=== PATIENT | female | born 1950 | race Caucasian/White ===

== ENCOUNTER 2023-08-11 07:46 | Observation (INO) | payer MEDICARE ==
[2023-08-11] MEDS ORDERED: SODIUM CHLORIDE 0.9% 1,000 ML IV STA (08:31)
[2023-08-11] MEDS ORDERED: MORPHINE SULFATE 4 MG/ML SYRINGE IV STA (08:31)
--- NOTE | 2023-08-11 08:57 | ED ---
General Adult HPI - General Chief complaint: Recheck/Abnormal Lab/Rx Stated complaint: Weakness Time Seen by Provider: 08/11/23 07:50 Source: patient Mode of arrival: ambulatory Limitations: no limitations - History of Present Illness Initial comments: 73-year-old female past history of uterine cancer currently on chemotherapy who presents to the emergency department reporting significant numbness, tingling and pain in her upper and lower extremities. States that she has had 5 of 6 chemotherapy treatments. Last treatment was on July 22. After the last treatment she has developed significant neuropathy. She has spoke with Dr. Hernandez about this he was given a start her on gabapentin however she was refusing she was worried about side effects. States that the pain has become so significant that she can't walk. Today she tried to use the restroom and couldn't get herself up off the toilet. She called her daughter to bring her in. She is supposed to have her last treatment for chemotherapy tomorrow. Does not feel as if she can undergo the treatment because of her pain. Denies any fevers. No chest pain or difficulty breathing. Denies any abdominal pain. No other alleviating, precipitating or modifying factors - Related Data Home Medications Medication Instructions Recorded Confirmed Acetaminophen Tab [Tylenol] 1,000 mg PO Q6H PRN 08/11/23 08/11/23 Apixaban [Eliquis] 5 mg PO BID 08/11/23 08/11/23 Cholecalciferol (Vitamin D3) 125 mcg PO DAILY 08/11/23 08/11/23 [Vitamin D3 (125 MCG = 5,000 IU)] Clopidogrel [Plavix] 75 mg PO HS 08/11/23 08/11/23 Cyclobenzaprine [Flexeril] 5 mg PO TID PRN 08/11/23 08/11/23 Docusate [Colace] 100 mg PO DAILY PRN 08/11/23 08/11/23 Furosemide [Lasix] 20 mg PO DAILY 08/11/23 08/11/23 Insulin Glargine,Hum.rec.anlog 50 - 64 units SQ HS 08/11/23 08/11/23 [Lantus Solostar Pen] Lidocaine 5% Patch [Lidoderm 5% 1 patch TRANSDERM DAILY PRN 08/11/23 08/11/23 Patch] Metoprolol Succinate (ER) [Toprol 100 mg PO BID 08/11/23 08/11/23 XL] Nitroglycerin Sl Tabs [Nitrostat] 0.4 mg SL Q5M PRN 08/11/23 08/11/23 Potassium Chloride ER [K-Dur 10] 10 meq PO BID 08/11/23 08/11/23 Prochlorperazine [Compazine] 10 mg PO Q6H PRN 08/11/23 08/11/23 amLODIPine [Norvasc] 10 mg PO HS 08/11/23 08/11/23 cloNIDine 0.2 MG/24HR PATCH 1 patch TRANSDERM SA 08/11/23 08/11/23 [Catapres-TTS] lisinopriL 40 mg PO BID 08/11/23 08/11/23 Previous Rx's Medication Instructions Recorded Gabapentin [Neurontin] 200 mg PO TID #9 cap 08/14/23 INSULIN ASPART (NovoLOG) [NovoLOG 0 unit SQ ACHS each 08/14/23 (formulary)] Insulin Detemir (Levemir) [Levemir] 45 unit SQ HS each 08/14/23 polyethylene glycoL 3350 [Miralax] 17 gm PO DAILY packet 08/14/23 Allergies Allergy/AdvReac Type Severity Reaction Status Date / Time diltiazem Allergy Rash/Hives Verified 08/11/23 12:49 hydrochlorothiazide Allergy Rash/Hives Verified 08/11/23 12:49 metformin Allergy Rash/Hives Verified 08/11/23 12:49 ondansetron [From Zofran] Allergy Rash/Hives Verified 08/11/23 12:49 Penicillins Allergy Rash/Hives Verified 08/11/23 12:49 Jearspc-[id number]-NdY Reductase Allergy Rash/Hives Verified 08/11/23 12:49 Inhibitor Review of Systems ROS Statement: Those systems with pertinent positive or pertinent negative responses have been documented in the HPI. ROS Other: All systems not noted in ROS Statement are negative. Past Medical History Past Medical History: Atrial Fibrillation, Coronary Artery Disease (CAD), Cancer, Diabetes Mellitus, Hypertension History of Any Multi-Drug Resistant Organisms: None Reported Past Surgical History: Heart Catheterization, Heart Catheterization With Stent Additional Past Surgical History / Comment(s): Aortic valve, Past Psychological History: No Psychological Hx Reported Smoking Status: Never smoker Past Alcohol Use History: None Reported Past Drug Use History: None Reported General Exam Limitations: no limitations General appearance: alert, in no apparent distress Head exam: Present: atraumatic, normocephalic, normal inspection Eye exam: Present: normal appearance, PERRL, EOMI. Absent: scleral icterus, conjunctival injection, periorbital swelling ENT exam: Present: normal exam, mucous membranes moist Neck exam: Present: normal inspection. Absent: tenderness, meningismus, lymphadenopathy Respiratory exam: Present: normal lung sounds bilaterally. Absent: respiratory distress, wheezes, rales, rhonchi, stridor Cardiovascular Exam: Present: regular rate, normal rhythm, normal heart sounds. Absent: systolic murmur, diastolic murmur, rubs, gallop, clicks GI/Abdominal exam: Present: soft, normal bowel sounds. Absent: distended, tenderness, guarding, rebound, rigid Extremities exam: Present: normal inspection, full ROM, normal capillary refill. Absent: tenderness, pedal edema, joint swelling, calf tenderness Back exam: Present: normal inspection Neurological exam: Present: alert, oriented X3, CN II-XII intact Psychiatric exam: Present: normal affect, normal mood Skin exam: Present: warm, dry, intact, normal color. Absent: rash Course Vital Signs 08/11/23 08/11/23 08/11/23 07:49 09:08 09:52 Temperature 98 F Pulse Rate 98 107 H 82 Respiratory 18 20 20 Rate Blood Pressure 188/72 140/71 O2 Sat by Pulse 97 97 97 Oximetry 08/11/23 08/11/23 08/11/23 12:55 14:49 15:00 Temperature 98.1 F Pulse Rate 89 89 89 Respiratory 16 20 18 Rate Blood Pressure 143/80 149/95 154/72 O2 Sat by Pulse 97 93 L 97 Oximetry 08/11/23 08/11/23 17:54 18:37 Temperature Pulse Rate 95 99 Respiratory 20 20 Rate Blood Pressure 152/66 147/71 O2 Sat by Pulse 98 98 Oximetry Medical Decision Making - Medical Decision Making Was pt. sent in by a medical professional or institution (, PA, MEAT SCRUBBER, urgent care, hospital, or [facility]...) When possible be specific @ -No Did you speak to anyone other than the patient for history (EMS, parent, family, police, friend...)? What history was obtained from this source @ -No Did you review nursing and triage notes (agree or disagree)? Why? @ -I reviewed and agree with nursing and triage notes Were old charts reviewed (outside hosp., previous admission, EMS record, old EKG, old radiological studies, urgent care reports/EKG's, [facility] records)? Report findings @ -No old charts were reviewed Differential Diagnosis (chest pain, altered mental status, abdominal pain women, abdominal pain men, vaginal bleeding, weakness, fever, dyspnea, syncope, headache, dizziness, GI bleed, back pain, seizure, CVA, palpatations, mental health, musculoskeletal)? @ -Differential Weakness: Hypoglycemia, shock, sepsis, hyponatremia, anemia, infection, [place], ETOH, adverse medicine reaction, overdose, stroke, this is not meant to be an all-inclusive list. EKG interpreted by me (3pts min.). @ -Yes and demonstrates A. fib with a rate of 111. QRS 105. QTC is 393. No acute ST segment elevations. ST depression V5-V6 X-rays interpreted by me (1pt min.). @ -None done CT interpreted by me (1pt min.). @ -None done U/S interpreted by me (1pt. min.). @ -None done What testing was considered but not performed or refused? (CT, X-rays, U/S, labs)? Why? @ -None What meds were considered but not given or refused? Why? @ -None Did you discuss the management of the patient with other professionals (professionals i.e. DrJackie, PA, MEAT SCRUBBER, lab, RT, psych nurse, social insurance adviser, volunteer services supervisor, teacher, disabilities services officer, cyanide case hardener)? Give summary @ -I spoke with Dr. Hernandez and Dr. Wyatt Was smoking cessation discussed for >3mins.? @ -No Was critical care preformed (if so, how long)? @ -No Were there social determinants of health that impacted care today? How? (Homelessness, low income, unemployed, alcoholism, drug addiction, transpor tation, low edu. Level, literacy, decrease access to med. care, [facility], rehab)? @ -No Was there de-escalation of care discussed even if they declined (Discuss DNR or withdrawal of care, Hospice)? DNR status @ -No What co-morbidities impacted this encounter? (DM, HTN, Smoking, COPD, CAD, Cancer, CVA, ARF, Chemo, Hep., AIDS, mental health diagnosis, sleep apnea, morbid obesity)? @ -Uterine cancer on chemotherapy Was patient admitted / discharged? Hospital course, mention meds given and route, prescriptions, significant lab abnormalities, going to OR and other pertinent info. @ -Upon arrival patient is placed in room 28. History and physical exam is performed. IV access was established. Patient was given morphine for pain control. Laboratory studies are conducted and reviewed. Patient is evaluated reports improvement in her pain. I did discuss the diagnosis, differential and treatment options. Recommended starting the patient and gabapentin and follow ing up outpatient. Patient refused stating that she did not want to leave the hospital. States that she feels as she needs to be admitted due to her weakness. A call and speak with Dr. Wyatt. I also spoke with Dr. Hernandez. Recommend starting the patient on gabapentin 200 mg 3 times daily. Patient will forego her treatment tomorrow for which she understood. Patient pending a bed and the floor in stable condition Undiagnosed new problem with uncertain prognosis? @ -No Drug Therapy requiring intensive monitoring for toxicity (Heparin, Nitro, Insulin, Cardizem)? @ -No Were any procedures done? @ -No Diagnosis/symptom? @ -Acute lower extremity weakness, acute lower extremity neuropathy, uterine cancer status post chemotherapy Acute, or Chronic, or Acute on Chronic? @ -Acute on chronic Uncomplicated (without systemic symptoms) or Complicated (systemic symptoms)? @ -Complicated Side effects of treatment? @ -No Exacerbation, Progression, or Severe Exacerbation? @ -No Poses a threat to life or bodily function? How? (Chest pain, [place], [place], pneumonia, PE, COPD, DKA, ARF, appy, cholecystitis, CVA, Diverticulitis, Homicidal, Suicidal, threat to staff... and all critical care pts) @ -No - Lab Data Result diagrams: 08/13/23 03:57 08/13/23 03:57 Lab Results 08/11/23 08/11/23 08/11/23 Range/Units 08:49 08:49 08:49 WBC 11.9 H (3.8-10.6) k/uL RBC 4.50 (3.80-5.40) m/uL Hgb 12.4 (11.4-16.0) gm/dL Hct 38.4 (34.0-46.0) % MCV 85.3 (80.0-100.0) fL MCH 27.6 (25.0-35.0) pg MCHC 32.4 (31.0-37.0) g/dL RDW 16.9 H (11.5-15.5) % Plt Count 299 (150-450) k/uL MPV 8.2 Neutrophils % 78 % Lymphocytes % 12 % Monocytes % 7 % Eosinophils % 0 % Basophils % 0 % Neutrophils # 9.3 H (1.3-7.7) k/uL Lymphocytes # 1.4 (1.0-4.8) k/uL Monocytes # 0.8 (0-1.0) k/uL Eosinophils # 0.0 (0-0.7) k/uL Basophils # 0.0 (0-0.2) k/uL Anisocytosis Slight PT 11.0 (10.0-12.5) sec INR 1.0 (<1.2) APTT 26.7 (22.0-30.0) sec Sodium 133 L (137-145) mmol/L Potassium 4.0 (3.5-5.1) mmol/L Chloride 97 L (98-107) mmol/L Carbon Dioxide 21 L (22-30) mmol/L Anion Gap 15 mmol/L BUN 22 H (7-17) mg/dL Creatinine 0.49 L (0.52-1.04) mg/dL Est GFR (CKD-EPI)AfAm >90 (>60 ml/min/1.73 sqM) Est GFR (CKD-EPI)NonAf >90 (>60 ml/min/1.73 sqM) Glucose 187 H (74-99) mg/dL Plasma Lactic Acid Allen (0.7-2.0) mmol/L Calcium 10.0 (8.4-10.2) mg/dL Phosphorus 4.6 H (2.5-4.5) mg/dL Magnesium 1.7 (1.6-2.3) mg/dL Total Bilirubin 0.6 (0.2-1.3) mg/dL AST 22 (14-36) U/L ALT 26 (4-34) U/L Alkaline Phosphatase 94 (38-126) U/L Creatine Kinase 38 (30-135) U/L Troponin I (0.000-0.034) ng/mL Total Protein 7.5 (6.3-8.2) g/dL Albumin 4.4 (3.5-5.0) g/dL 08/11/23 08/11/23 Range/Units 08:49 08:49 WBC (3.8-10.6) k/uL RBC (3.80-5.40) m/uL Hgb (11.4-16.0) gm/dL Hct (34.0-46.0) % MCV (80.0-100.0) fL MCH (25.0-35.0) pg MCHC (31.0-37.0) g/dL RDW (11.5-15.5) % Plt Count (150-450) k/uL MPV Neutrophils % % Lymphocytes % % Monocytes % % Eosinophils % % Basophils % % Neutrophils # (1.3-7.7) k/uL Lymphocytes # (1.0-4.8) k/uL Monocytes # (0-1.0) k/uL Eosinophils # (0-0.7) k/uL Basophils # (0-0.2) k/uL Anisocytosis PT (10.0-12.5) sec INR (<1.2) APTT (22.0-30.0) sec Sodium (137-145) mmol/L Potassium (3.5-5.1) mmol/L Chloride (98-107) mmol/L Carbon Dioxide (22-30) mmol/L Anion Gap mmol/L BUN (7-17) mg/dL Creatinine (0.52-1.04) mg/dL Est GFR (CKD-EPI)AfAm (>60 ml/min/1.73 sqM) Est GFR (CKD-EPI)NonAf (>60 ml/min/1.73 sqM) Glucose (74-99) mg/dL Plasma Lactic Acid Allen 1.8 (0.7-2.0) mmol/L Calcium (8.4-10.2) mg/dL Phosphorus (2.5-4.5) mg/dL Magnesium (1.6-2.3) mg/dL Total Bilirubin (0.2-1.3) mg/dL AST (14-36) U/L ALT (4-34) U/L Alkaline Phosphatase (38-126) U/L Creatine Kinase (30-135) U/L Troponin I 0.021 (0.000-0.034) ng/mL Total Protein (6.3-8.2) g/dL Albumin (3.5-5.0) g/dL Disposition Clinical Impression: Peripheral neuropathy Disposition: ADMITTED IP TO THIS [facility] Condition: Stable Is patient prescribed a controlled substance at d/c from ED?: No Time of Disposition: 12:08 Decision to Admit Reason: Admit from EC Decision Date: 08/11/23 Decision Time: 12:08
[2023-08-11 09:09] LABS: Anisocytosis Slight; Basophils % (A) 0 %; Eosinophils % (A) 0 %; HCT 38.4 % (34.0-46.0); HGB 12.4 gm/dL (11.4-16.0); Lymphocytes # (A) 1.4 k/uL (1.0-4.8); Lymphocytes % (A) 12 %; MCH 27.6 pg (25.0-35.0); MCHC 32.4 g/dL (31.0-37.0); MCV 85.3 fL (80.0-100.0); Mean Platelet Volume 8.2; Monocytes # (A) 0.8 k/uL (0-1.0); Monocytes % (A) 7 %; Neutrophils # (A) 9.3 k/uL (1.3-7.7); Neutrophils % (A) 78 %; Platelet Count 299 k/uL (150-450); RDW 16.9 % (11.5-15.5); WBC 11.9 k/uL (3.8-10.6)
[2023-08-11 09:20] LABS: ALT 26 U/L (4-34); AST 22 U/L (14-36); African American GFR (CKD) >90 (>60 ml/min/1.73 sqM); Albumin 4.4 g/dL (3.5-5.0); Alkaline Phosphatase 94 U/L (38-126); Anion Gap 15 mmol/L; Blood Urea Nitrogen 22 mg/dL (7-17); Carbon Dioxide 21 mmol/L (22-30); Chloride 97 mmol/L (98-107); Creatine Kinase 38 U/L (30-135); Glucose 187 mg/dL (74-99); Magnesium 1.7 mg/dL (1.6-2.3); Non-African American GFR(CKD) >90 (>60 ml/min/1.73 sqM); Phosphorus 4.6 mg/dL (2.5-4.5); Sodium 133 mmol/L (137-145); Total Bilirubin 0.6 mg/dL (0.2-1.3); Total Protein 7.5 g/dL (6.3-8.2)
[2023-08-11 09:31] LABS: Partial Thromboplastin Time 26.7 sec (22.0-30.0)
[2023-08-11] MEDS ORDERED: NALOXONE 0.4 MG/ML 1 ML VIAL IV PRN (12:08)
[2023-08-11] MEDS ORDERED: GABAPENTIN 100 MG CAP PO SCH ×2 (12:15→21:00)
[2023-08-11] MEDS ORDERED: DEXTROSE 50% SYRINGE 50 ML IVP PRN ×2 (12:33)
[2023-08-11 12:52] LABS: Glucose,Whole Blood 154 mg/dL (70-110)
[2023-08-11] MEDS: SODIUM CHLORIDE 0.9% 1,000 ML IV SCH ×2 (12:54→23:05)
[2023-08-11] MEDS ORDERED: NITROGLYCERIN SL TABS 0.4 MG TAB SUBLINGUAL PRN (13:06)
[2023-08-11] MEDS ORDERED: DOCUSATE 100 MG CAP PO PRN (13:06)
[2023-08-11] MEDS ORDERED: CYCLOBENZAPRINE 5 MG TAB PO PRN (13:06)
[2023-08-11] MEDS ORDERED: ACETAMINOPHEN TAB 500 MG TAB PO PRN (13:06)
[2023-08-11] MEDS ORDERED: PROCHLORPERAZINE 10 MG TAB PO PRN (13:09)
[2023-08-11] MEDS ORDERED: amLODIPine 10 MG TAB PO SCH (13:30)
[2023-08-11] MEDS: METOPROLOL SUCCINATE (ER) 100 MG TAB.ER.24H PO SCH ×2 (14:52→22:29)
[2023-08-11] MEDS: APIXABAN 5 MG TAB PO SCH ×2 (14:52→22:28)
[2023-08-11 18:32] LABS: Glucose,Whole Blood 161 mg/dL (70-110)
[2023-08-11] MEDS: INSULIN ASPART (NovoLOG) 100 UNIT/ML VIAL SQ SCH ×2 (18:36→22:30)
[2023-08-11 22:09] LABS: Glucose,Whole Blood 174 mg/dL (70-110)
[2023-08-11] MEDS: INSULIN DETEMIR (LEVEMIR) 100 UNIT/ML SYR SQ SCH (22:28)
[2023-08-11] MEDS: amLODIPine 10 MG TAB PO SCH (22:29)
[2023-08-11] MEDS: lisinopriL 20 MG TAB PO SCH (22:29)
[2023-08-11] MEDS: CLOPIDOGREL 75 MG TAB PO SCH (22:29)
[2023-08-11] MEDS: MORPHINE SULFATE 4 MG/ML SYRINGE IV PRN (22:30)
[2023-08-11] MEDS ORDERED: ZINC OXIDE PASTE (Z-GUARD) 1 APPLIC APPLIC TOPICAL PRN (22:59)
[2023-08-12 08:01] LABS: Glucose,Whole Blood 114 mg/dL (70-110)
[2023-08-12] MEDS: INSULIN ASPART (NovoLOG) 100 UNIT/ML VIAL SQ SCH ×4 (08:12→21:05)
[2023-08-12] MEDS: MORPHINE SULFATE 4 MG/ML SYRINGE IV PRN (08:26)
[2023-08-12] MEDS: APIXABAN 5 MG TAB PO SCH ×2 (08:30→21:10)
[2023-08-12] MEDS: METOPROLOL SUCCINATE (ER) 100 MG TAB.ER.24H PO SCH ×2 (08:31→21:10)
[2023-08-12] MEDS: CHOLECALCIFEROL 125 MCG (5000 IU) TABLET PO SCH (08:31)
[2023-08-12] MEDS: lisinopriL 20 MG TAB PO SCH ×2 (08:31→21:13)
[2023-08-12 10:51] LABS: Basophils # (A) 0.06 X 10*3/uL (0.00-0.10); Basophils % (A) 0.6 %; Eosinophils # (A) 0.05 X 10*3/uL (0.04-0.35); Eosinophils % (A) 0.5 %; HCT 35.3 % (37.2-46.3); HGB 11.1 d/dL (12.0-15.0); Lymphocytes # (A) 1.66 X 10*3/uL (0.90-5.00); Lymphocytes % (A) 17.1 %; MCHC 31.4 d/dL (32.0-37.0); MCV 85.9 FL (80.0-97.0); Mean Platelet Volume 9.5 FL (9.5-12.2); Monocytes # (A) 1.23 X 10*3/uL (0.20-1.00); Monocytes % (A) 12.7 %; NRBC Per 100 WBC 0 X 10*3/uL (0.00-0.01); Neutrophils # (A) 6.69 X 10*3/uL (1.80-7.70); Neutrophils % (A) 68.9 %; Platelet Count 264 X 10*3/uL (140-440); RBC 4.11 X 10*6/uL (4.10-5.20); RDW 17.4 % (11.5-14.5); WBC 9.71 X 10*3/uL (4.50-10.00)
[2023-08-12 11:17] LABS: BUN/Creat Ratio 27.17 Ratio (12.00-20.00); Blood Urea Nitrogen 16.3 mg/dL (9.0-27.0); Calcium 9.2 mg/dL (8.7-10.3); Carbon Dioxide 22.8 mmol/L (21.6-31.8); Chloride 102 mmol/L (96-109); Glucose 113 mg/dL (70-110); Potassium 4.1 mmol/L (3.5-5.5); Sodium 136 mmol/L (135-145)
[2023-08-12] MEDS: GABAPENTIN 100 MG CAP PO SCH ×3 (12:58→21:11)
[2023-08-12 13:01] LABS: Glucose,Whole Blood 153 mg/dL (70-110)
--- NOTE | 2023-08-12 14:19 | P.CONS ---
History of Present Illness - Reason for Consult Consult date: 08/12/23 neuropathy, uterine cancer Requesting physician: Katheryn Bolanos - Chief Complaint nueropathy - History of Present Illness Patient is a 73-year-old female with a significant history of uterine cancer. She is a patient of Dr. Hernandez. S/P [facility] and [facility] in the fall [address] Raffaele Goins, had adjuvant EBRT completing surveillance with radiation oncology at [facility], scan 04/02 showing no evidence recurrence. She was seen on consult in December 2022 at [facility] because of nausea, dry heaves, constipation and blood from her rectum. CT abdomen and pelvis at that time showed a 6.3 x 6.3 x 8 cm lobulated mass in the small bowel mesentery. She had CT guided biopsy on 12/23/22, pathology was positive for atypical cells consistent with endometrial primary, ER/MD positive, staging PET scan on 01/02/23 showed uptake in the lobular mass in the anterior Left hemipelvis and increased uptake in the anterior left iliac lymph nodes. Patient was referred to building supplies salesperson retail oncology and saw Dr. Richards. After evaluation of her biomarker results, it was recommended by [employer]CT[employer]NAGER oncology that the patient be treated with carboplatin, Taxol and PD1 immunotherapy. She was started on carboplatin, Taxol and keytruda on 04/27/23 and is s/p 5 cycles on 07/22/23. She has been experiencing progressive Neuropathy in bilateral upper and lower extremities over the last couple months. Patient was recommended to start Neurontin but patient never started medication after she read potential side effects. Plan is to hold Taxol for cycle 6. Repeat CT scans will be scheduled after cycle 6 to assess treatment response. Patient presented to the emergency room with complaints of bilateral upper and lower extremity neuropathy and difficulty ambulating. Labs reviewed and are stable. Pt has been started on Neurontin. At today's visit patient is complaining of intermittent dizziness and persisting numbness and tingling in bilateral upper and lower extremities. She is able to ambulate short distances with a walker but needs assistance. Also reports decreased sensation in the lower extremities upon palpation. Denies any loss of bowel or bladder control. PT and OT have been ordered Review of Systems 10 point ROS is negative except as stated in the HPI Past Medical History Past Medical History: Atrial Fibrillation, Coronary Artery Disease (CAD), Cancer, Diabetes Mellitus, Hypertension Additional Past Medical History / Comment(s): Shirley diagnosis History of Any Multi-Drug Resistant Organisms: None Reported Past Surgical History: Section, Cholecystectomy, Heart Catheterization, Heart Catheterization With Stent, Hysterectomy Additional Past Surgical History / Comment(s): Aortic valve, Past Anesthesia/Blood Transfusion Reactions: No Reported Reaction Date of Last Stent Placement:: 2014 Past Psychological History: No Psychological Hx Reported Smoking Status: Never smoker Past Alcohol Use History: None Reported Past Drug Use History: None Reported Medications and Allergies Home Medications Medication Instructions Recorded Confirmed Type Acetaminophen Tab [Tylenol Tab] 1,000 mg PO Q6H PRN 08/11/23 08/11/23 History Apixaban [Eliquis] 5 mg PO BID 08/11/23 08/11/23 History Cholecalciferol (Vitamin D3) 125 mcg PO DAILY 08/11/23 08/11/23 History [Vitamin D3 (125 MCG = 5,000 IU)] Clopidogrel [Plavix] 75 mg PO HS 08/11/23 08/11/23 History Cyclobenzaprine [Flexeril] 5 mg PO TID PRN 08/11/23 08/11/23 History Docusate [Colace] 100 mg PO DAILY PRN 08/11/23 08/11/23 History Furosemide [Lasix] 20 mg PO DAILY 08/11/23 08/11/23 History Gabapentin 300 mg PO DIRECTED 08/11/23 08/11/23 History Insulin Glargine,Hum.rec.anlog 50 - 64 units SQ HS 08/11/23 08/11/23 History [Lantus Solostar Pen] Insulin Lispro [humaLOG Kwikpen] See Protocol SQ AC-TID 08/11/23 08/11/23 History Lidocaine 5% Patch [Lidoderm] 1 patch TRANSDERM DAILY PRN 08/11/23 08/11/23 History Metoprolol Succinate (ER) [Toprol 100 mg PO BID 08/11/23 08/11/23 History Xl] Nitroglycerin Sl Tabs [Nitrostat] 0.4 mg SL Q5M PRN 08/11/23 08/11/23 History OLANZapine [ZyPREXA] 2.5 mg PO DIRECTED 08/11/23 08/11/23 History Potassium Chloride ER [K-Dur 10] 10 meq PO BID 08/11/23 08/11/23 History Prochlorperazine [Compazine] 10 mg PO Q6H PRN 08/11/23 08/11/23 History amLODIPine [Norvasc] 10 mg PO HS 08/11/23 08/11/23 History cloNIDine 0.2 MG/24HR PATCH 1 patch TRANSDERM SA 08/11/23 08/11/23 History [Catapres-TTS] lisinopriL 40 mg PO BID 08/11/23 08/11/23 History Allergies Allergy/AdvReac Type Severity Reaction Status Date / Time diltiazem Allergy Rash/Hives Verified 08/11/23 12:49 hydrochlorothiazide Allergy Rash/Hives Verified 08/11/23 12:49 metformin Allergy Rash/Hives Verified 08/11/23 12:49 ondansetron [From Zofran] Allergy Rash/Hives Verified 08/11/23 12:49 Penicillins Allergy Rash/Hives Verified 08/11/23 12:49 Dritywe-ZUD-ZrX Reductase Allergy Rash/Hives Verified 08/11/23 12:49 Inhibitor Physical Exam Vitals: Vital Signs Temp Pulse Pulse Resp BP BP BP 08/12/23 08:04 98.0 F 77 16 123/72 08/12/23 02:49 98.2 F 92 18 143/62 08/11/23 20:11 98.0 F 100 16 128/74 08/11/23 18:37 99 20 147/71 08/11/23 17:54 95 20 152/66 08/11/23 15:00 98.1 F 89 18 154/72 08/11/23 14:49 89 20 149/95 08/11/23 12:55 89 16 143/80 08/11/23 09:52 82 20 Pulse Ox 08/12/23 08:04 97 08/12/23 02:49 94 L 08/11/23 20:11 98 08/11/23 18:37 98 08/11/23 17:54 98 08/11/23 15:00 97 08/11/23 14:49 93 L 08/11/23 12:55 97 08/11/23 09:52 97 Intake and Output 08/11/23 08/12/23 08/12/23 22:59 06:59 14:59 Intake Total 590 Balance 590 Intake: Oral 590 Other: Voiding Method Toilet Bedside Commode # Voids 2 Weight 78.925 kg - Constitutional General appearance: average body habitus, no acute distress - EENT Eyes: anicteric sclerae, EOMI ENT: hearing grossly normal - Respiratory breathing is even and unlabored - Cardiovascular skin warm and dry - Gastrointestinal General gastrointestinal: soft, no tenderness - Integumentary Integumentary: no cyanotic, no jaundiced - Neurologic Decreased sensation in bilateral lower extremities. With mild tenderness to palpation - Musculoskeletal Musculoskeletal: generalized weakness - Psychiatric Psychiatric: A&O x's 3, appropriate affect, intact judgment & insight Results CBC & Chem 7: 08/12/23 06:25 08/12/23 06:25 Labs: Abnormal Lab Results - Last 24 Hours (Table) 08/11/23 08/11/23 08/11/23 Range/Units 08:49 12:51 18:31 Sodium 133 L (137-145) mmol/L Chloride 97 L (98-107) mmol/L Carbon Dioxide 21 L (22-30) mmol/L BUN 22 H (7-17) mg/dL Creatinine 0.49 L (0.52-1.04) mg/dL Glucose 187 H (74-99) mg/dL POC Glucose (mg/dL) 154 H 161 H (70-110) mg/dL Phosphorus 4.6 H (2.5-4.5) mg/dL 08/11/23 08/12/23 Range/Units 22:08 08:00 Sodium (137-145) mmol/L Chloride (98-107) mmol/L Carbon Dioxide (22-30) mmol/L BUN (7-17) mg/dL Creatinine (0.52-1.04) mg/dL Glucose (74-99) mg/dL POC Glucose (mg/dL) 174 H 114 H (70-110) mg/dL Phosphorus (2.5-4.5) mg/dL Assessment and Plan (1) Peripheral neuropathy Current Visit: Yes Status: Acute Priority: High Code(s): G62.9 - POLY NEUROPATHY, UNSPECIFIED SNOMED Code(s): 223522683 (2) Endometrial adenocarcinoma Current Visit: Yes Status: Acute Priority: High Code(s): C54.1 - MALIGNANT NEOPLASM OF ENDOMETRIUM SNOMED Code(s): 136081058 Plan: Endometrial carcinoma: -Full history in HPI -Completed cycle 5 of carboplatin/Taxol/keytruda on 07/22/23 -She has been experiencing progressive Neuropathy in bilateral upper and lower extremities over the last couple months. Patient was recommended to start Neurontin but patient never started medication after she read potential side effects. -Plan is to hold Taxol for cycle 6 -Repeat CT scans will be scheduled after cycle 6 to assess treatment response. -Clinic f/u will be scheduled upon discharge Chemo-induced neuropathy: -Sx have been progressive -Patient was recommended to start Neurontin but patient never started medication after she read potential side effects. -As described above, plan is to hold Taxol for cycle 6. -Gabapentin 200mg TID started. Will continue to monitor sx -PT/OT consult placed attests: I have seen and examined patient, performed H&P, developed impression and plan of care. Discussed with dictator. Agree with documentation, dictated as a scribe.
--- NOTE | 2023-08-12 16:56 | P.HPIM ---
History of Present Illness H&P Date: 08/11/23 Chief Complaint: bilateral leg weakness HISTORY OF PRESENT ILLNESS: This is a 73-year-old female one of my patient with a previous medical history significant for coronary artery disease status post coronary artery bypass graft for 5 vessels along with aortic valve replacement with 21 mm bioprosthetic valve in 06/05/2015, hypertension and hypertensive cardio vascular disease, proximal is better for abrasion, diabetes mellitus type 2 diabetic neuropathy, hyperlipidemia, ulcerative colitis, TIA, obesity with obstructive sleep apnea and obesity hypoventilation syndrome, thalassemia, anxiety, patient was diagnosed with uterine cancer back in 2019 underwent total abdominal hysterectomy and bilateral sopping oophorectomy by Dr. Mosqueda followed by adjuvant radiation therapy, she finished relation therapy with her vision oncology at [facility] the [facility] and she had a CAT scan that showed no evidence of recurrence of disease back in March 2022, patient eventually developed to have a significant abdominal pain associated with rectal bleed was seen at [facility] was admitted to the hospital after she has had a computed tomography scan of the abdomen and pelvis that didn't show evidence of a large 6.36.3 times a day centimeter lobulated mass in the small bowel mesentery she was seen at that time by hematology oncology was re commended to go for a CT-guided biopsy which was done on 12/23/2022 this is came back positive for endometrial primary with ER and CO positive she underwent staging PET scan with Dr. Hernandez in December 2022 and that showed positive uptake in the mass and along with the left hemipelvis with increased uptake in the left iliac lymph nodes, patient was initially referred to Dr. Richards who recommended for the patient to go for chemotherapy as well as immunotherapy, she was started on carboplatin and Taxol and Keach Noemí on 04/27/2023 and she has finished 5 cycles on 07/22/2023, patient was supposed to get her sixth cycle tomorrow however she stated that she was having progressively weaker in both lower extremities with significant neuropathy due to her treatment, patient had declined taking gabapentin was offered to her by her oncologist due to possible side effects, and because she could not tolerate medication very well, patient she was going to the bathroom using her walker sat on the toilet for quite a bit and she could not get herself up, she ended up calling 911 and the patient was brought into the emergency department for evaluation, she was a bit hyponatremic, other than that no other abnormalities but the patient was extremely weak she could not be able to sit up and walk around because of significant weakness in both lower extremities therefore she was admitted to the hospital with physical therapy evaluation as well as hematology oncology evaluation. REVIEW OF SYSTEMS: Constitutional: No documented fever, no chills, no night sweats. No weight change. No weakness, fatigue or lethargy. No daytime sleepiness. EENT: No headache. No blurred vision or double vision, no loss of vision. No loss of Hearing, no ringing in the ears, no dizziness. No nasal drainage or congestion. No epistaxis. No sore throat. Lungs: No shortness of breath, no cough, no sputum production. No wheezing. Reports dyspnea with activity. Cardiovascular: No chest pain, no lower extremity edema. No palpitations. No paroxysmal nocturnal dyspnea. No orthopnea. No lightheadedness or dizziness. No syncopal episodes. Abdominal: Reports abdominal pain. No nausea, vomiting. No diarrhea. No constipation. No bloody or tarry stools reports loss of appetite. Genitourinary: No dysuria, increased frequency, urgency. No urinary retention. Musculoskeletal: No myalgias. No muscle weakness, no gait dysfunction, no frequent falls. No back pain. No neck pain. Integumentary: No wounds, no lesions. No rash or pruritus. No unusual bruising. No change in hair or nails. Neurologic: No aphasia. No facial droop. No change in mentation. No head injury. No headache. No paralysis. No paresthesia. Psychiatric: No depression. No anxiety. No mood swings. Endocrine: No abnormal blood sugars. No weight change. PAST MEDICAL HISTORY: Coronary artery disease status post coronary artery bypass graft 5 Aortic valve disease status post aortic valve replacement with 21 mm by prostatic valve 06/05/2015 Paroxysmal atrial fibrillation Diabetes mellitus type 2 with diabetic polyneuropathy Essential hypertension Mixed hyperlipidemia Ulcerative colitis Obstructive sleep apnea Parkinson disease Thalassemia Anxiety Malignant neoplasm of the uterus 2018 with recurrence in 2022 PAST SURGICAL HISTORY: Tonsillectomy and adenoidectomy Bilateral tubal ligation Total abdominal hysterectomy with bilateral salpingo-oophorectomy due to uterine cancer followed by external beam radiation therapy he be RT Cholecystectomy. Bilateral cataract surgery Left heart catheter physician with PCI with a science stent in the left circumflex artery 12/20/2015 Left heart catheterization with PCI in the diagonal branch 03/17/2016 CABG 5 with aortic valve replacement with a 21 mm 06/05/[address]-guided biopsy of the small bowel mesentery mass. SOCIAL HISTORY: Patient is a lifelong nonsmoker she denies any alcohol ingestion she denies any drug use or abuse, she uses a walker for ambulation. FAMILY HISTORY: Father at age 74 from heart disease had diabetes and Parkinson disease as well he also had history of hypertension and he from [place], mother at age of 82 from heart disease and cancer she did from thrombus in the small intestine sign, patient has one son and 2 daughters no major medical problems. PHYSICAL EXAMINATION: General: 73-year-old female laying down in bed in no apparent distress. HEENT: Head is atraumatic, normocephalic, pupils were equal round reactive to light and recommendation, extraocular muscle movement were intact, sclera nonicteric, conjunctivae were pale, mucous membranes of the mouth are somewhat dry. Neck: Supple, no JVP, normal carotid upstroke bilaterally, no lymphadenopathy. Chest: Decreased breath sounds at the bases, few rhonchi, no extremity wheezes, no chest wall tenderness, no intercostal retractions. Heart: First heart sound is normal, second heart sounds normal Abdomen: Soft, nontender, nondistended, positive bowel sounds. Extremities: There is no edema no calf tenderness DP +2 bilaterally. Neurologic examination: Patient is awake alert and oriented ?-3, cranial nerves II-12 appear grossly intact, muscle power were 5 out of 5 in upper extremities and 5 out of 5 in bilateral lower extremities, deep tendon reflexes normal bilaterally. ASSESSMENT AND PLAN: 1. Bilateral lower extremity weakness likely related to significant polyneuropathy due to combination of diabetes as well as chemotherapy with carboplatin. Recommended for the patient to be admitted to the hospital for safety issues and increased risk of falling since the patient is on anticoagulation due to her arrhythmia, physical therapy evaluation, occupational therapy evaluation for safety at home, continue to use the walker, start the patient on gabapentin 200 mg orally once every day with the plan to increase it to 3 times every day, we will monitor the patient very closely social services analyst consultation will be obtained as well. Patient and her daughter were updated with the plan of care. 2. Hypertension and hypertensive cardiovascular disease. Continue patient on metoprolol ER 100 mg orally twice every day, amlodipine 10 mg once every, as well as lisinopril 40 mg orally twice every day. and TTS-1 q week 3. Mixed hyperlipidemia. Patient was advised to be started on statin however she refused to the ALLERGY and side effects, she also did refuse PCSK-9 INH 4. Coronary artery disease status post coronary artery bypass graft as well as PCI. Continue patient on Plavix 75 mg orally once every day, metoprolol ER 100 mg orally twice every day, monitor the patient's symptoms very closely patient currently follows with cardiology in [facility]. 5. Diabetes mellitus type 2 into the patient on Lantus 50 units at bedtime along with the Humalog per sliding scale insulin. Monitor the patient blood glucose level before each meal and bedtime. 6. History of uterine cancer status post total abdominal hysterectomy and bilateral sopping go for nephrectomy in 2018 followed by EBRT . With recurrence of her disease in 2022 status post 5 cycles of carboplatin, Taxol, and Keytruda, patient 6 cycles will be placed on hold, she was seen in consultation by hematology oncology. 7. Recurrent TIA. Continue patient on clopidogrel 75 mg once every day. 8. Atrial fibrillation. Continue patient on metoprolol ER 100 mg orally twice every day, continue patient on Eliquis 5mg orally twice every day. 9. Constipation. Start the patient on MiraLAX 17 g in 8 ounces of water along with Colace 100 mg orally twice every day. 10. 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 Start the patient on gabapentin 200 mg orally at bedtime with the intention to increase to 3 times every day down the line. 11. DVT prophylaxis. Continue patient on Eliquis 5 mg orally twice every day. 12. Medical debility. Physical therapy evaluation. 13. bakery worker consultation for discharge planning. 14. Patient elected for full code. Past Medical History Past Medical History: Atrial Fibrillation, Coronary Artery Disease (CAD), Cancer, Diabetes Mellitus, Hypertension Additional Past Medical History / Comment(s): Shirley diagnosis History of Any Multi-Drug Resistant Organisms: None Reported Past Surgical History: Section, Cholecystectomy, Heart Catheterization, Heart Catheterization With Stent, Hysterectomy Additional Past Surgical History / Comment(s): Aortic valve, Past Anesthesia/Blood Transfusion Reactions: No Reported Reaction Date of Last Stent Placement:: 2014 Past Psychological History: No Psychological Hx Reported Smoking Status: Never smoker Past Alcohol Use History: None Reported Past Drug Use History: None Reported Medications and Allergies Home Medications Medication Instructions Recorded Confirmed Type Acetaminophen Tab [Tylenol Tab] 1,000 mg PO Q6H PRN 08/11/23 08/11/23 History Apixaban [Eliquis] 5 mg PO BID 08/11/23 08/11/23 History Cholecalciferol (Vitamin D3) 125 mcg PO DAILY 08/11/23 08/11/23 History [Vitamin D3 (125 MCG = 5,000 IU)] Clopidogrel [Plavix] 75 mg PO HS 08/11/23 08/11/23 History Cyclobenzaprine [Flexeril] 5 mg PO TID PRN 08/11/23 08/11/23 History Docusate [Colace] 100 mg PO DAILY PRN 08/11/23 08/11/23 History Furosemide [Lasix] 20 mg PO DAILY 08/11/23 08/11/23 History Gabapentin 300 mg PO DIRECTED 08/11/23 08/11/23 History Insulin Glargine,Hum.rec.anlog 50 - 64 units SQ HS 08/11/23 08/11/23 History [Lantus Solostar Pen] Insulin Lispro [humaLOG Kwikpen] See Protocol SQ AC-TID 08/11/23 08/11/23 History Lidocaine 5% Patch [Lidoderm] 1 patch TRANSDERM DAILY PRN 08/11/23 08/11/23 History Metoprolol Succinate (ER) [Toprol 100 mg PO BID 08/11/23 08/11/23 History Xl] Nitroglycerin Sl Tabs [Nitrostat] 0.4 mg SL Q5M PRN 08/11/23 08/11/23 History OLANZapine [ZyPREXA] 2.5 mg PO DIRECTED 08/11/23 08/11/23 History Potassium Chloride ER [K-Dur 10] 10 meq PO BID 08/11/23 08/11/23 History Prochlorperazine [Compazine] 10 mg PO Q6H PRN 08/11/23 08/11/23 History amLODIPine [Norvasc] 10 mg PO HS 08/11/23 08/11/23 History cloNIDine 0.2 MG/24HR PATCH 1 patch TRANSDERM SA 08/11/23 08/11/23 History [Catapres-TTS] lisinopriL 40 mg PO BID 08/11/23 08/11/23 History Allergies Allergy/AdvReac Type Severity Reaction Status Date / Time diltiazem Allergy Rash/Hives Verified 08/11/23 12:49 hydrochlorothiazide Allergy Rash/Hives Verified 08/11/23 12:49 metformin Allergy Rash/Hives Verified 08/11/23 12:49 ondansetron [From Zofran] Allergy Rash/Hives Verified 08/11/23 12:49 Penicillins Allergy Rash/Hives Verified 08/11/23 12:49 Nsrqzfl-IEW-YxM Reductase Allergy Rash/Hives Verified 08/11/23 12:49 Inhibitor Physical Exam Vitals: Vital Signs Temp Pulse Pulse Resp BP BP BP 08/12/23 13:22 97.6 F 71 16 124/69 08/12/23 08:04 98.0 F 77 16 123/72 08/12/23 02:49 98.2 F 92 18 143/62 08/11/23 20:11 98.0 F 100 16 128/74 08/11/23 18:37 99 20 147/71 08/11/23 17:54 95 20 152/66 Pulse Ox 08/12/23 13:22 99 08/12/23 08:04 97 08/12/23 02:49 94 L 08/11/23 20:11 98 08/11/23 18:37 98 08/11/23 17:54 98 Intake and Output 08/12/23 08/12/23 08/12/23 06:59 14:59 22:59 Intake Total 590 Balance 590 Intake: Oral 590 Other: # Voids 2 Results CBC & Chem 7: 08/12/23 06:25 08/12/23 06:25 Labs: Abnormal Lab Results - Last 24 Hours (Table) 08/11/23 08/11/23 08/12/23 Range/Units 18:31 22:08 06:25 Hgb (12.0-15.0) d/dL Hct (37.2-46.3) % MCHC (32.0-37.0) d/dL RDW (11.5-14.5) % Monocytes # (0.20-1.00) X 10*3/uL BUN/Creatinine Ratio (12.00-20.00) Ratio Glucose (70-110) mg/dL POC Glucose (mg/dL) 161 H 174 H (70-110) mg/dL Hemoglobin A1c 6.6 H (<=6.0) % 08/12/23 08/12/23 08/12/23 Range/Units 06:25 06:25 08:00 Hgb 11.1 L (12.0-15.0) d/dL Hct 35.3 L (37.2-46.3) % MCHC 31.4 L (32.0-37.0) d/dL RDW 17.4 H (11.5-14.5) % Monocytes # 1.23 H (0.20-1.00) X 10*3/uL BUN/Creatinine Ratio 27.17 H (12.00-20.00) Ratio Glucose 113 H (70-110) mg/dL POC Glucose (mg/dL) 114 H (70-110) mg/dL Hemoglobin A1c (<=6.0) % 08/12/23 Range/Units 13:00 Hgb (12.0-15.0) d/dL Hct (37.2-46.3) % MCHC (32.0-37.0) d/dL RDW (11.5-14.5) % Monocytes # (0.20-1.00) X 10*3/uL BUN/Creatinine Ratio (12.00-20.00) Ratio Glucose (70-110) mg/dL POC Glucose (mg/dL) 153 H (70-110) mg/dL Hemoglobin A1c (<=6.0) %
[2023-08-12 17:33] LABS: Glucose,Whole Blood 127 mg/dL (70-110)
[2023-08-12] MEDS: polyethylene glycoL 3350 17 GM POWD.PACK PO SCH (17:47)
[2023-08-12 20:35] LABS: Glucose,Whole Blood 145 mg/dL (70-110)
[2023-08-12] MEDS: CLOPIDOGREL 75 MG TAB PO SCH (21:10)
[2023-08-12] MEDS: amLODIPine 10 MG TAB PO SCH (21:10)
[2023-08-12] MEDS: DOCUSATE 100 MG CAP PO SCH (21:10)
[2023-08-12] MEDS: INSULIN DETEMIR (LEVEMIR) 100 UNIT/ML SYR SQ SCH (21:13)
[2023-08-13 07:15] LABS: Glucose,Whole Blood 73 mg/dL (70-110)
[2023-08-13] MEDS: INSULIN ASPART (NovoLOG) 100 UNIT/ML VIAL SQ SCH ×4 (07:26→21:22)
[2023-08-13] MEDS ORDERED: LIDOCAINE 5% PATCH TOPICAL PRN (08:44)
[2023-08-13 08:47] LABS: Basophils # (A) 0.05 X 10*3/uL (0.00-0.10); Basophils % (A) 0.6 %; Eosinophils # (A) 0.06 X 10*3/uL (0.04-0.35); Eosinophils % (A) 0.7 %; HCT 35.1 % (37.2-46.3); HGB 11.3 d/dL (12.0-15.0); Lymphocytes # (A) 1.36 X 10*3/uL (0.90-5.00); Lymphocytes % (A) 15.5 %; MCH 27.2 pg (27.0-32.0); MCHC 32.2 d/dL (32.0-37.0); MCV 84.6 FL (80.0-97.0); Mean Platelet Volume 9.7 FL (9.5-12.2); Monocytes # (A) 1.41 X 10*3/uL (0.20-1.00); Monocytes % (A) 16.1 %; NRBC Per 100 WBC 0 X 10*3/uL (0.00-0.01); Neutrophils # (A) 5.87 X 10*3/uL (1.80-7.70); Neutrophils % (A) 66.8 %; Platelet Count 273 X 10*3/uL (140-440); RBC 4.15 X 10*6/uL (4.10-5.20); RDW 17.4 % (11.5-14.5); WBC 8.78 X 10*3/uL (4.50-10.00)
[2023-08-13 09:27] LABS: ALT 20 U/L (8-44); AST 16 U/L (13-35); Albumin 3.8 d/dL (3.8-4.9); Albumin/Globulin Ratio 1.73 Ratio (1.60-3.17); Alkaline Phosphatase 79 U/L (41-126); BUN/Creat Ratio 27.67 Ratio (12.00-20.00); Blood Urea Nitrogen 16.6 mg/dL (9.0-27.0); Calcium 9.6 mg/dL (8.7-10.3); Carbon Dioxide 22.5 mmol/L (21.6-31.8); Chloride 100 mmol/L (96-109); Globulin 2.2 d/dL (1.6-3.3); Glucose 95 mg/dL (70-110); Potassium 4.2 mmol/L (3.5-5.5); Sodium 136 mmol/L (135-145); Total Bilirubin 0.3 mg/dL (0.3-1.2)
[2023-08-13] MEDS: GABAPENTIN 100 MG CAP PO SCH ×3 (09:39→21:21)
[2023-08-13] MEDS: METOPROLOL SUCCINATE (ER) 100 MG TAB.ER.24H PO SCH ×2 (09:39→21:21)
[2023-08-13] MEDS: FUROSEMIDE 20 MG TAB PO SCH (09:40)
[2023-08-13] MEDS: POTASSIUM CHLORIDE ER 10 MEQ TAB.ER.PRT PO SCH ×2 (09:40→21:21)
[2023-08-13] MEDS: CHOLECALCIFEROL 125 MCG (5000 IU) TABLET PO SCH (09:40)
[2023-08-13] MEDS: lisinopriL 20 MG TAB PO SCH ×2 (09:40→21:21)
[2023-08-13] MEDS: APIXABAN 5 MG TAB PO SCH ×2 (09:40→21:21)
[2023-08-13] MEDS: polyethylene glycoL 3350 17 GM POWD.PACK PO SCH (09:46)
[2023-08-13] MEDS: DOCUSATE 100 MG CAP PO SCH ×2 (09:46→21:21)
--- NOTE | 2023-08-13 11:27 | P.PN ---
Subjective Progress Note Date: 08/12/23 HISTORY OF PRESENT ILLNESS: This is a 73-year-old female one of my patient with a previous medical history significant for coronary artery disease status post coronary artery bypass graft for 5 vessels along with aortic valve replacement with 21 mm bioprosthetic valve in 06/05/2015, hypertension and hypertensive cardio vascular disease, proximal is better for abrasion, diabetes mellitus type 2 diabetic neuropathy, hyperlipidemia, ulcerative colitis, TIA, obesity with obstructive sleep apnea and obesity hypoventilation syndrome, thalassemia, anxiety, patient was diagnosed with uterine cancer back in 2019 underwent total abdominal hysterectomy and bilateral sopping oophorectomy by Dr. Mosqueda followed by adjuvant radiation therapy, she finished relation therapy with her vision oncology at [facility] the [place] [facility] and she had a CAT scan that showed no evidence of recurrence of disease back in March 2022, patient eventually developed to have a significant abdominal pain associated with rectal bleed was seen at [facility] was admitted to the hospital after she has had a computed tomography scan of the abdomen and pelvis that didn't show evidence of a large 6.36.3 times a day centimeter lobulated mass in the small bowel mesentery she was seen at that time by hematology oncology was recommended to go for a CT-guided biopsy which was done on 12/23/2022 this is came back positive for endometrial primary with ER and GA positive she underwent staging PET scan with Dr. Hernandez in December 2022 and that showed positive uptake in the mass and along with the left hemipelvis with increased uptake in the left iliac lymph nodes, patient was initially referred to Dr. Richards who recommended for the patient to go for chemotherapy as well as immunotherapy, she was started on carboplatin and Taxol and Keach Noemí on 04/27/2023 and she has finished 5 cycles on 07/22/2023, patient was supposed to get her sixth cycle tomorrow however she stated that she was having progressively weaker in both lower extremities with significant neuropathy due to her treatment, patient had declined taking gabapentin was offered to her by her oncologist due to possible side effects, and because she could not tolerate medication very well, patient she was going to the bathroom using her walker sat on the toilet for quite a bit and she could not get herself up, she ended up calling 911 and the patient was brought into the emergency department for evaluation, she was a bit hyponatre tomy, other than that no other abnormalities but the patient was extremely weak she could not be able to sit up and walk around because of significant weakness in both lower extremities therefore she was admitted to the hospital with physical therapy evaluation as well as hematology oncology evaluation. 08/12: Patient is seen today in follow-up on the [facility] floor. Patient has been afebrile, heart rate 77, blood pressure 123/72 and pulse ox 97% on room air. Repeat blood work reveals WBC 9.7, hemoglobin 11.1, platelet count 264. Electrolytes are normal. BUN 16 and creatinine 0.6. CBG 100163. Hemoglobin A1c 6.6. Patient has been seen by physical therapy and occupational therapy with recommendations for subacute rehab. Discontinue IV fluids. Consult is in place with Dr. Hernandez. Social work consult added. REVIEW OF SYSTEMS: Constitutional: No documented fever, no chills, no night sweats. No weight change. No weakness, fatigue or lethargy. No daytime sleepiness. EENT: No headache. No blurred vision or double vision, no loss of vision. No loss of Hearing, no ringing in the ears, no dizziness. No nasal drainage or congestion. No epistaxis. No sore throat. Lungs: No shortness of breath, no cough, no sputum production. No wheezing. Reports dyspnea with activity. Cardiovascular: No chest pain, no lower extremity edema. No palpitations. No paroxysmal nocturnal dyspnea. No orthopnea. No lightheadedness or dizziness. No syncopal episodes. Abdominal: Reports abdominal pain. No nausea, vomiting. No diarrhea. No constipation. No bloody or tarry stools reports loss of appetite. Genitourinary: No dysuria, increased frequency, urgency. No urinary retention. Musculoskeletal: No myalgias. No muscle weakness, no gait dysfunction, no frequent falls. No back pain. No neck pain. Integumentary: No wounds, no lesions. No rash or pruritus. No unusual bruising. No change in hair or nails. Neurologic: No aphasia. No facial droop. No change in mentation. No head injury. No headache. No paralysis. No paresthesia. Psychiatric: No depression. No anxiety. No mood swings. Endocrine: No abnormal blood sugars. No weight change. PHYSICAL EXAMINATION: General: 73-year-old female laying down in bed in no apparent distress. HEENT: Head is atraumatic, normocephalic, pupils were equal round reactive to light and recommendation, extraocular muscle movement were intact, sclera nonicteric, conjunctivae were pale, mucous membranes of the mouth are somewhat dry. Neck: Supple, no JVP, normal carotid upstroke bilaterally, no lymphadenopathy. Chest: Decreased breath sounds at the bases, few rhonchi, no extremity wheezes, no chest wall tenderness, no intercostal retractions. Heart: First heart sound is normal, second heart sounds normal Abdomen: Soft, nontender, nondistended, positive bowel sounds. Extremities: There is no edema no calf tenderness DP +2 bilaterally. Neurologic examination: Patient is awake alert and oriented ?-3, cranial nerves II-12 appear grossly intact, muscle power were 5 out of 5 in upper extremities and 5 out of 5 in bilateral lower extremities, deep tendon reflexes normal bilaterally. ASSESSMENT AND PLAN: 1. Bilateral lower extremity weakness likely related to significant polyneuropathy due to combination of diabetes as well as chemotherapy with carboplatin. Physical therapy evaluation, occupational therapy evaluation for safety at home, continue to use the walker, continue the patient on gabapentin 200 mg orally once every day with the plan to increase it to 3 times every day, we will monitor the patient very closely oncology social worker consultation will be obtained as well. Patient and her daughter were updated with the plan of care. 2. Hypertension and hypertensive cardiovascular disease. Continue patient on metoprolol ER 100 mg orally twice every day, amlodipine 10 mg once every, as well as lisinopril 40 mg orally twice every day. and TTS-1 q week 3. Mixed hyperlipidemia. Patient was advised to be started on statin however she refused to the ALLERGY and side effects, she also did refuse PCSK-9 INH 4. Coronary artery disease status post coronary artery bypass graft as well as PCI. Continue patient on Plavix 75 mg orally once every day, metoprolol ER 100 mg orally twice every day, monitor the patient's symptoms very closely patient currently follows with cardiology in [facility]. 5. Diabetes mellitus type 2 into the patient on Lantus 50 units at bedtime along with the Humalog per sliding scale insulin. Monitor the patient blood glucose level before each meal and bedtime. 6. History of uterine cancer status post total abdominal hysterectomy and bilateral sopping go for nephrectomy in 2018 followed by EBRT . With recurrence of her disease in 2022 status post 5 cycles of carboplatin, Taxol, and Keytruda, patient 6 cycles will be placed on hold, she was seen in consultation by hematology oncology. 7. Recurrent TIA. Continue patient on clopidogrel 75 mg once every day. 8. Atrial fibrillation. Continue patient on metoprolol ER 100 mg orally twice every day, continue patient on Eliquis 5mg orally twice every day. 9. Constipation. Start the patient on MiraLAX 17 g in 8 ounces of water along with Colace 100 mg orally twice every day. 10. 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 Start the patient on gabapentin 200 mg orally at bedtime with the intention to increase to 3 times every day down the line. 11. DVT prophylaxis. Continue patient on Eliquis 5 mg orally twice every day. 12. Medical debility. Physical therapy evaluation. 13. pass worker consultation for discharge planning. 14. Patient elected for full code. Impression and plan of care have been directed as dictated by the signing physician. Gabi Kauffman nurse practitioner acting as scribe for signing physician. Objective - Vital Signs Vital signs: Vital Signs Temp 98.0 F 08/12/23 08:04 Pulse 77 08/12/23 08:04 Resp 16 08/12/23 08:04 BP 123/72 08/12/23 08:04 Pulse Ox 97 08/12/23 08:04 FiO2 Intake & Output 08/11/23 08/12/23 08/12/23 18:59 06:59 18:59 Intake Total 590 Balance 590 Weight 78.925 kg 78.925 kg Intake: Oral 590 Other: Voiding Method Toilet Bedside Commode # Voids 2 - Labs CBC & Chem 7: 08/13/23 03:57 08/13/23 03:57 Labs: Abnormal Lab Results - Last 24 Hours (Table) 08/11/23 08/11/23 08/11/23 Range/Units 12:51 18:31 22:08 Hgb (12.0-15.0) d/dL Hct (37.2-46.3) % MCHC (32.0-37.0) d/dL RDW (11.5-14.5) % Monocytes # (0.20-1.00) X 10*3/uL BUN/Creatinine Ratio (12.00-20.00) Ratio Glucose (70-110) mg/dL POC Glucose (mg/dL) 154 H 161 H 174 H (70-110) mg/dL Hemoglobin A1c (<=6.0) % 08/12/23 08/12/23 08/12/23 Range/Units 06:25 06:25 06:25 Hgb 11.1 L (12.0-15.0) d/dL Hct 35.3 L (37.2-46.3) % MCHC 31.4 L (32.0-37.0) d/dL RDW 17.4 H (11.5-14.5) % Monocytes # 1.23 H (0.20-1.00) X 10*3/uL BUN/Creatinine Ratio 27.17 H (12.00-20.00) Ratio Glucose 113 H (70-110) mg/dL POC Glucose (mg/dL) (70-110) mg/dL Hemoglobin A1c 6.6 H (<=6.0) % 08/12/23 Range/Units 08:00 Hgb (12.0-15.0) d/dL Hct (37.2-46.3) % MCHC (32.0-37.0) d/dL RDW (11.5-14.5) % Monocytes # (0.20-1.00) X 10*3/uL BUN/Creatinine Ratio (12.00-20.00) Ratio Glucose (70-110) mg/dL POC Glucose (mg/dL) 114 H (70-110) mg/dL Hemoglobin A1c (<=6.0) %
--- NOTE | 2023-08-13 11:36 | P.PN ---
Subjective Progress Note Date: 08/13/23 HISTORY OF PRESENT ILLNESS: This is a 73-year-old female one of my patient with a previous medical history significant for coronary artery disease status post coronary artery bypass graft for 5 vessels along with aortic valve replacement with 21 mm bioprosthetic valve in 06/05/2015, hypertension and hypertensive cardio vascular disease, proximal is better for abrasion, diabetes mellitus type 2 diabetic neuropathy, hyperlipidemia, ulcerative colitis, TIA, obesity with obstructive sleep apnea and obesity hypoventilation syndrome, thalassemia, anxiety, patient was diagnosed with uterine cancer back in 2019 underwent total abdominal hysterectomy and bilateral sopping oophorectomy by Dr. Mosqueda followed by adjuvant radiation therapy, she finished relation therapy with her vision oncology at [facility] the [place] area and she had a CAT scan that showed no evidence of recurrence of disease back in March 2022, patient eventually developed to have a significant abdominal pain associated with rectal bleed was seen at [facility] was admitted to the hospital after she has had a computed tomography scan of the abdomen and pelvis that didn't show evidence of a large 6.36.3 times a day centimeter lobulated mass in the small bowel mesentery she was seen at that time by hematology oncology was recommended to go for a CT-guided biopsy which was done on 12/23/2022 this is came back positive for endometrial primary with ER and ND positive she underwent staging PET scan with Dr. Hernandez in December 2022 and that showed positive uptake in the mass and along with the left hemipelvis with increased uptake in the left iliac lymph nodes, patient was initially referred to Dr. Richards who recommended for the patient to go for chemotherapy as well as immunotherapy, she was started on carboplatin and Taxol and Keach Noemí on 04/27/2023 and she has finished 5 cycles on 07/22/2023, patient was supposed to get her sixth cycle tomorrow however she stated that she was having progressively weaker in both lower extremities with significant neuropathy due to her treatment, patient had declined taking gabapentin was offered to her by her oncologist due to possible side effects, and because she could not tolerate medication very well, patient she was going to the bathroom using her walker sat on the toilet for quite a bit and she could not get herself up, she ended up calling 911 and the patient was brought into the emergency department for evaluation, she was a bit hyponatre tomy, other than that no other abnormalities but the patient was extremely weak she could not be able to sit up and walk around because of significant weakness in both lower extremities therefore she was admitted to the hospital with physical therapy evaluation as well as hematology oncology evaluation. 08/12: Patient is seen today in follow-up on the [facility] floor. Patient has been afebrile, heart rate 77, blood pressure 123/72 and pulse ox 97% on room air. Repeat blood work reveals WBC 9.7, hemoglobin 11.1, platelet count 264. Electrolytes are normal. BUN 16 and creatinine 0.6. CBG 134117. Hemoglobin A1c 6.6. Patient has been seen by physical therapy and occupational therapy with recommendations for subacute rehab. Discontinue IV fluids. Consult is in place with Dr. Hernandez. Social work consult added. 08/13: Patient is observed this morning working with PT and OT and noted to have significant weakness, inability to walk only minimal distance and easily becomes fatigued with tired feeling and she states legs feel like lead. Blood sugar this morning was 73 and Levemir will be decreased to 45 units. Other blood work reveals WBC 8.7, hemoglobin 11.3, platelet count 273. Electrolytes normal, creatinine 0.6. Patient has been seen by oncology and plan for outpatient follow-up. Discharge plan is for [facility] for subacute rehab. MiraLAX was added yesterday for constipation. REVIEW OF SYSTEMS: Constitutional: No documented fever, no chills, no night sweats. No weight ch do. + weakness, + fatigue no lethargy. No daytime sleepiness. EENT: No headache. No blurred vision or double vision, no loss of vision. No loss of Hearing, no ringing in the ears, no dizziness. No nasal drainage or congestion. No epistaxis. No sore throat. Lungs: No shortness of breath, no cough, no sputum production. No wheezing. Reports dyspnea with activity. Cardiovascular: No chest pain, no lower extremity edema. No palpitations. No paroxysmal nocturnal dyspnea. No orthopnea. No lightheadedness or dizziness. No syncopal episodes. Abdominal: Reports no abdominal pain. No nausea, vomiting. No diarrhea. No constipation. No bloody or tarry stools reports loss of appetite. Genitourinary: No dysuria, increased frequency, urgency. No urinary retention. Musculoskeletal: No myalgias. Noted muscle weakness, + gait dysfunction, no frequent falls. No back pain. No neck pain. Integumentary: No wounds, no lesions. No rash or pruritus. No unusual bruising. No change in hair or nails. Neurologic: No aphasia. No facial droop. No change in mentation. No head injury. No headache. No paralysis. No paresthesia. Psychiatric: No depression. No anxiety. No mood swings. Endocrine: No abnormal blood sugars. No weight change. PHYSICAL EXAMINATION: General: 73-year-old female laying down in bed in no apparent distress. HEENT: Head is atraumatic, normocephalic, pupils were equal round reactive to light and recommendation, extraocular muscle movement were intact, sclera nonicteric, conjunctivae were pale, mucous membranes of the mouth are somewhat dry. Neck: Supple, no JVP, normal carotid upstroke bilaterally, no lymphadenopathy. Chest: Decreased breath sounds at the bases, few rhonchi, no extremity wheezes, no chest wall tenderness, no intercostal retractions. Heart: First heart sound is normal, second heart sounds normal Abdomen: Soft, nontender, nondistended, positive bowel sounds. Extremities: There is no edema no calf tenderness DP +2 bilaterally. Neurologic examination: Patient is awake alert and oriented ?-3, cranial nerves II-12 appear grossly intact, muscle power were 5 out of 5 in upper extremities and 5 out of 5 in bilateral lower extremities, deep tendon reflexes normal bilaterally. ASSESSMENT AND PLAN: 1. Bilateral lower extremity weakness likely related to significant polyneuropathy due to combination of diabetes as well as chemotherapy with carboplatin. Physical therapy evaluation, occupational therapy evaluation for safety at home, continue to use the walker, continue the patient on gabapentin 200 mg orally once every day with the plan to increase it to 3 times every day, we will monitor the patient very closely social services counselor consultation will be obtained as well. Patient and her daughter were updated with the plan of care. 2. Hypertension and hypertensive cardiovascular disease. Continue patient on metoprolol ER 100 mg orally twice every day, amlodipine 10 mg once every, as well as lisinopril 40 mg orally twice every day. and TTS-1 q week 3. Mixed hyperlipidemia. Patient was advised to be started on statin however she refused to the ALLERGY and side effects, she also did refuse PCSK-9 INH 4. Coronary artery disease status post coronary artery bypass graft as well as PCI. Continue patient on Plavix 75 mg orally once every day, metoprolol ER 100 mg orally twice every day, monitor the patient's symptoms very closely patient currently follows with cardiology in [facility]. 5. Diabetes mellitus type 2 into the patient on Lantus 50 units at bedtime along with the Humalog per sliding scale insulin. Monitor the patient blood glucose level before each meal and bedtime. 6. History of uterine cancer status post total abdominal hysterectomy and bilateral sopping go for nephrectomy in 2018 followed by EBRT . With recurrence of her disease in 2022 status post 5 cycles of carboplatin, Taxol, and Keytruda, patient 6 cycles will be placed on hold, she was seen in consultation by he matology oncology. 7. Recurrent TIA. Continue patient on clopidogrel 75 mg once every day. 8. Atrial fibrillation. Continue patient on metoprolol ER 100 mg orally twice every day, continue patient on Eliquis 5mg orally twice every day. 9. Constipation. Start the patient on MiraLAX 17 g in 8 ounces of water along with Colace 100 mg orally twice every day. 10. 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 Start the patient on gabapentin 200 mg orally at bedtime with the intention to increase to 3 times every day down the line. 11. DVT prophylaxis. Continue patient on Eliquis 5 mg orally twice every day. 12. Medical debility. Physical therapy evaluation. 13. cleaning and maintenance worker consultation for discharge planning. 14. Patient elected for full code. Impression and plan of care have been directed as dictated by the signing physician. Gabi Kauffman nurse practitioner acting as scribe for signing physician. Objective - Vital Signs Vital signs: Vital Signs Temp 97.7 F 08/13/23 08:01 Pulse 89 08/13/23 08:01 Resp 20 08/13/23 08:01 BP 128/68 08/13/23 08:01 Pulse Ox 98 08/13/23 08:01 FiO2 Intake & Output 08/12/23 08/13/23 08/13/23 18:59 06:59 18:59 Intake Total 900 300 Output Total 1 Balance 900 299 Intake: Intake, IV Titration 900 Amount Sodium Chloride 0.9% 1, 900 000 ml @ 75 mls/hr IV . [id number] [facility] Rx#:[id number] Oral 300 Output: Urine 1 Other: Voiding Method Toilet Bedside Commode # Voids 1 # Bowel Movements 1 - Labs CBC & Chem 7: 08/13/23 03:57 08/13/23 03:57 Labs: Abnormal Lab Results - Last 24 Hours (Table) 08/12/23 08/12/23 08/12/23 Range/Units 13:00 17:32 20:34 Hgb (12.0-15.0) d/dL Hct (37.2-46.3) % RDW (11.5-14.5) % Monocytes # (0.20-1.00) X 10*3/uL Anion Gap (4.00-12.00) mmol/L BUN/Creatinine Ratio (12.00-20.00) Ratio POC Glucose (mg/dL) 153 H 127 H 145 H (70-110) mg/dL Total Protein (6.2-8.2) d/dL 08/13/23 08/13/23 Range/Units 03:57 03:57 Hgb 11.3 L (12.0-15.0) d/dL Hct 35.1 L (37.2-46.3) % RDW 17.4 H (11.5-14.5) % Monocytes # 1.41 H (0.20-1.00) X 10*3/uL Anion Gap 13.50 H (4.00-12.00) mmol/L BUN/Creatinine Ratio 27.67 H (12.00-20.00) Ratio POC Glucose (mg/dL) (70-110) mg/dL Total Protein 6.0 L (6.2-8.2) d/dL
[2023-08-13 12:25] LABS: Glucose,Whole Blood 139 mg/dL (70-110)
[2023-08-13] MEDS: MORPHINE SULFATE 4 MG/ML SYRINGE IV PRN ×2 (15:09→22:41)
--- NOTE | 2023-08-13 16:58 | P.PN ---
Subjective Progress Note Date: 08/13/23 Principal diagnosis: neuropathy At today's visit patient is resting comfortably in bed. She has been working with PT, with increased mobility but is still requiring assistance. She also reports mild improvement in neuropathy. Plan is for rehab upon discharge. Objective - Vital Signs Vital signs: Vital Signs Temp 98.4 F 08/13/23 14:00 Pulse 105 H 08/13/23 14:00 Resp 19 08/13/23 14:00 BP 100/70 08/13/23 14:00 Pulse Ox 97 08/13/23 14:00 FiO2 Intake & Output 08/12/23 08/13/23 08/13/23 18:59 06:59 18:59 Intake Total 900 300 Output Total 1 Balance 900 299 Intake: Intake, IV Titration 900 Amount Sodium Chloride 0.9% 1, 900 000 ml @ 75 mls/hr IV . [id number] Rx#:[id number] Oral 300 Output: Urine 1 Other: Voiding Method Toilet Bedside Commode # Voids 1 # Bowel Movements 1 - Constitutional General appearance: Present: average body habitus, no acute distress - EENT Eyes: Present: anicteric sclerae, EOMI ENT: Present: hearing grossly normal - Respiratory Details: breathing is even and unlabored - Cardiovascular Details: skin warm and dry - Integumentary Integumentary: Absent: cyanotic - Musculoskeletal Musculoskeletal: Present: generalized weakness - Psychiatric Psychiatric: Present: A&O x's 3, appropriate affect, intact judgment & insight - Labs CBC & Chem 7: 08/13/23 03:57 08/13/23 03:57 Labs: Abnormal Lab Results - Last 24 Hours (Table) 08/12/23 08/12/23 08/13/23 Range/Units 17:32 20:34 03:57 Hgb 11.3 L (12.0-15.0) d/dL Hct 35.1 L (37.2-46.3) % RDW 17.4 H (11.5-14.5) % Monocytes # 1.41 H (0.20-1.00) X 10*3/uL Anion Gap (4.00-12.00) mmol/L BUN/Creatinine Ratio (12.00-20.00) Ratio POC Glucose (mg/dL) 127 H 145 H (70-110) mg/dL Total Protein (6.2-8.2) d/dL 08/13/23 08/13/23 Range/Units 03:57 12:24 Hgb (12.0-15.0) d/dL Hct (37.2-46.3) % RDW (11.5-14.5) % Monocytes # (0.20-1.00) X 10*3/uL Anion Gap 13.50 H (4.00-12.00) mmol/L BUN/Creatinine Ratio 27.67 H (12.00-20.00) Ratio POC Glucose (mg/dL) 139 H (70-110) mg/dL Total Protein 6.0 L (6.2-8.2) d/dL Assessment and Plan (1) Peripheral neuropathy Current Visit: Yes Status: Acute Priority: High Code(s): G62.9 - POLYNEUROPATHY, UNSPECIFIED SNOMED Code(s): 837916707 (2) Endometrial adenocarcinoma Current Visit: Yes Status: Acute Priority: High Code(s): C54.1 - MALIGNANT NEOPLASM OF ENDOMETRIUM SNOMED Code(s): 236107916 Plan: Endometrial carcinoma: -Full history in HPI -Completed cycle 5 of carboplatin/Taxol/keytruda on 07/22/23 -She has been experiencing progressive Neuropathy in bilateral upper and lower extremities over the last couple months. Patient was recommended to start Neurontin but patient never started medication after she read potential side effects. -Plan is to hold Taxol for cycle 6 and possibly carboplatin -Repeat CT scans will be scheduled after cycle 6 to assess treatment response. Chemo-induced neuropathy: -Sx have been progressive -Patient was recommended to start Neurontin but patient never started medication after she read potential side effects. -As described above, plan is to hold Taxol for cycle 6. -Gabapentin 200mg TID started, sx mildly improved. -PT/OT consult placed -Plan is for rehab upon discharge. Treatment will be on hold until rehabilitation is complete. F/u in discharge plan
[2023-08-13 17:19] LABS: Glucose,Whole Blood 174 mg/dL (70-110)
[2023-08-13 20:47] LABS: Glucose,Whole Blood 177 mg/dL (70-110)
[2023-08-13] MEDS ORDERED: INSULIN DETEMIR (LEVEMIR) 100 UNIT/ML SYR SQ SCH (21:00)
[2023-08-13] MEDS: CLOPIDOGREL 75 MG TAB PO SCH (21:21)
[2023-08-13] MEDS: amLODIPine 10 MG TAB PO SCH (21:21)
[2023-08-14 07:06] LABS: Glucose,Whole Blood 112 mg/dL (70-110)
[2023-08-14] MEDS: INSULIN ASPART (NovoLOG) 100 UNIT/ML VIAL SQ SCH ×2 (07:10→12:01)
[2023-08-14] MEDS: APIXABAN 5 MG TAB PO SCH (09:32)
[2023-08-14] MEDS: CHOLECALCIFEROL 125 MCG (5000 IU) TABLET PO SCH (09:33)
[2023-08-14] MEDS: DOCUSATE 100 MG CAP PO SCH (09:33)
[2023-08-14] MEDS: FUROSEMIDE 20 MG TAB PO SCH (09:33)
[2023-08-14] MEDS: METOPROLOL SUCCINATE (ER) 100 MG TAB.ER.24H PO SCH (09:34)
[2023-08-14] MEDS: lisinopriL 20 MG TAB PO SCH (09:34)
[2023-08-14] MEDS: polyethylene glycoL 3350 17 GM POWD.PACK PO SCH (09:34)
[2023-08-14] MEDS: GABAPENTIN 100 MG CAP PO SCH (09:34)
[2023-08-14] MEDS: POTASSIUM CHLORIDE ER 10 MEQ TAB.ER.PRT PO SCH (09:35)
[2023-08-14 11:47] LABS: Glucose,Whole Blood 131 mg/dL (70-110)
[2023-08-14] MEDS: MORPHINE SULFATE 4 MG/ML SYRINGE IV PRN (12:56)
--- NOTE | 2023-08-14 13:48 | P.DS ---
Providers Date of admission: 08/11/23 12:09 Expected date of discharge: 08/14/23 Attending physician: Marcello Wyatt Consults: 08/11/23 12:08 Consult Physician Urgent Consulting Provider: Juan Hernandez Consult Reason/Comments: neuropathy, uterine cancer Do you want consulting provider notified?: Already Contacted Primary care physician: Marcello Wyatt [facility] Course: HISTORY OF PRESENT ILLNESS: This is a 73-year-old female one of my patient with a previous medical history significant for coronary artery disease status post coronary artery bypass graft for 5 vessels along with aortic valve replacement with 21 mm bioprosthetic valve in 06/05/2015, hypertension and hypertensive cardio vascular disease, proximal is better for abrasion, diabetes mellitus type 2 diabetic ne uropathy, hyperlipidemia, ulcerative colitis, TIA, obesity with obstructive sleep apnea and obesity hypoventilation syndrome, thalassemia, anxiety, patient was diagnosed with uterine cancer back in 2019 underwent total abdominal hysterectomy and bilateral sopping oophorectomy by Dr. Mosqueda followed by adjuvant radiation therapy, she finished relation therapy with her vision oncology at [facility] the [facility] and she had a CAT scan that showed no evidence of recurrence of disease back in March 2022, patient eventually developed to have a significant abdominal pain associated with rectal bleed was seen at [facility] was admitted to the hospital after she has had a computed tomography scan of the abdomen and pelvis that didn't show evidence of a large 6.36.3 times a day centimeter lobulated mass in the small bowel mesentery she was seen at that time by hematology oncology was recommended to go for a CT-guided biopsy which was done on 12/23/2022 this is came back positive for endometrial primary with ER and MT positive she underwent staging PET scan with Dr. Hernandez in December 2022 and that showed positive uptake in the mass and along with the left hemipelvis with increased uptake in the left iliac lymph nodes, patient was initially referred to Dr. Richards who recommended for the patient to go for chemotherapy as well as immunotherapy, she was started on carboplatin and Taxol and Keach Noemí on 04/27/2023 and she has finished 5 cycles on 07/22/2023, patient was supposed to get her sixth cycle tomorrow however she stated that she was having progressively weaker in both lower extremities with significant neuropathy due to her treatment, patient had declined taking gabapentin was offered to her by her oncologist due to possible side effects, and because she could not tolerate medication very well, patient she was going to the bathroom using her walker sat on the toilet for quite a bit and she could not get herself up, she ended up calling 911 and the patient was brought into the emergency department for evaluation, she was a bit hyponatremic, other than that no other abnormalities but the patient was extremely weak she could not be able to sit up and walk around because of significant weakness in both lower extremities therefore she was admitted to the hospital with physical therapy evaluation as well as hematology oncology evaluation. 08/12: Patient is seen today in follow-up on the [facility] floor. Patient has been afebrile, heart rate 77, blood pressure 123/72 and pulse ox 97% on room air. Repeat blood work reveals WBC 9.7, hemoglobin 11.1, platelet count 264. Electrolytes are normal. BUN 16 and creatinine 0.6. CBG [id number]. Hemoglobin A1c 6.6. Patient has been seen by physical therapy and occupational therapy with recommendations for subacute rehab. Discontinue IV fluids. Consult is in place with Dr. Hernandez. Social work consult added. 08/13: Patient is observed this morning working with PT and OT and noted to have significant weakness, inability to walk only minimal distance and easily becomes fatigued with tired feeling and she states legs feel like lead. Blood sugar this morning was 73 and Levemir will be decreased to 45 units. Other blood work reveals WBC 8.7, hemoglobin 11.3, platelet count 273. Electrolytes normal, creatinine 0.6. Patient has been seen by oncology and plan for outpatient follow-up. Discharge plan is for [facility] for subacute rehab. MiraLAX was added yesterday for constipation. 08/14: No new concerns from the patient this afternoon. She has been increased on gabapentin to 3 times daily and seems to be tolerating this. Blood pressure 145/78, heart rate in the 80s, pulse ox 97% on room air and afebrile. Capillary blood glucose running between 112 and 177. Patient will be discharged to [facility] today in stable condition. DISCHARGE DIAGNOSES: 1. Bilateral lower extremity weakness likely related to significant polyneuropathy due to combination of diabetes as well as chemotherapy with carboplatin. 2. Hypertension and hypertensive cardiovascular disease. 3. Mixed hyperlipidemia. 4. Coronary artery disease status post coronary artery bypass graft as well as PCI. 5. Diabetes mellitus type 2 6. History of uterine cancer status post total abdominal hysterectomy and bilateral sopping go for nephrectomy in 2019 followed by EBRT . With recurrence of her disease in 2022 status post 5 cycles of carboplatin, Taxol, and Keytruda, patient 6 cycle will be placed on hold. 7. Recurrent TIA. 8. Atrial fibrillation. 9. Constipation. 10. 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 11. Medical debility with significant lower extremity weakness at high risk for falls. DISCHARGE PLAN: [facility] for subacute rehab Greater than 35 minutes was utilized and coordinating patient's discharge. Impression and plan of care have been directed as dictated by the signing physician. Gabi Kauffman nurse practitioner acting as scribe for signing ph ysician. Patient Condition at Discharge: Stable Plan - Discharge Summary Discharge Rx Participant: No New Discharge Prescriptions: New INSULIN ASPART (NovoLOG) [NovoLOG (formulary)] 0 unit SQ ACHS each Insulin Detemir (Levemir) [Levemir] 45 unit SQ HS each polyethylene glycoL 3350 [Miralax] 17 gm PO DAILY packet Gabapentin [Neurontin] 200 mg PO TID #9 cap Continue cloNIDine 0.2 MG/24HR PATCH [Catapres-TTS] 1 patch TRANSDERM SA Apixaban [Eliquis] 5 mg PO BID lisinopriL 40 mg PO BID amLODIPine [Norvasc] 10 mg PO HS Furosemide [Lasix] 20 mg PO DAILY Nitroglycerin Sl Tabs [Nitrostat] 0.4 mg SL Q5M PRN PRN Reason: Chest Pain Acetaminophen Tab [Tylenol] 1,000 mg PO Q6H PRN PRN Reason: Fever And/ Or Pain Docusate [Colace] 100 mg PO DAILY PRN PRN Reason: Constipation Cyclobenzaprine [Flexeril] 5 mg PO TID PRN PRN Reason: Muscle Spasm Lidocaine 5% Patch [Lidoderm 5% Patch] 1 patch TRANSDERM DAILY PRN PRN Reason: Pain Potassium Chloride ER [K-Dur 10] 10 meq PO BID Metoprolol Succinate (ER) [Toprol XL] 100 mg PO BID Cholecalciferol (Vitamin D3) [Vitamin D3 (125 MCG = 5,000 IU)] 125 mcg PO DAILY Insulin Glargine,Hum.rec.anlog [Lantus Solostar Pen] 50 - 64 units SQ HS Clopidogrel [Plavix] 75 mg PO HS Prochlorperazine [Compazine] 10 mg PO Q6H PRN PRN Reason: Nausea Discontinued Insulin Lispro [humaLOG Kwikpen] See Protocol SQ AC-TID OLANZapine [ZyPREXA] 2.5 mg PO DIRECTED Gabapentin 300 mg PO DIRECTED Discharge Medication List Acetaminophen Tab [Tylenol] 1,000 mg PO Q6H PRN 08/11/23 [History] Apixaban [Eliquis] 5 mg PO BID 08/11/23 [History] Cholecalciferol (Vitamin D3) [Vitamin D3 (125 MCG = 5,000 IU)] 125 mcg PO DAILY 08/11/23 [History] Clopidogrel [Plavix] 75 mg PO HS 08/11/23 [History] Cyclobenzaprine [Flexeril] 5 mg PO TID PRN 08/11/23 [History] Docusate [Colace] 100 mg PO DAILY PRN 08/11/23 [History] Furosemide [Lasix] 20 mg PO DAILY 08/11/23 [History] Insulin Glargine,Hum.rec.anlog [Lantus Solostar Pen] 50 - 64 units SQ HS 08/11/23 [History] Lidocaine 5% Patch [Lidoderm 5% Patch] 1 patch TRANSDERM DAILY PRN 08/11/23 [History] Metoprolol Succinate (ER) [Toprol XL] 100 mg PO BID 08/11/23 [History] Nitroglycerin Sl Tabs [Nitrostat] 0.4 mg SL Q5M PRN 08/11/23 [History] Potassium Chloride ER [K-Dur 10] 10 meq PO BID 08/11/23 [History] Prochlorperazine [Compazine] 10 mg PO Q6H PRN 08/11/23 [History] amLODIPine [Norvasc] 10 mg PO HS 08/11/23 [History] cloNIDine 0.2 MG/24HR PATCH [Catapres-TTS] 1 patch TRANSDERM SA 08/11/23 [History] lisinopriL 40 mg PO BID 08/11/23 [History] Gabapentin [Neurontin] 200 mg PO TID #9 cap 08/14/23 [Rx] INSULIN ASPART (NovoLOG) [NovoLOG (formulary)] 0 unit SQ ACHS each 08/14/23 [Rx] Insulin Detemir (Levemir) [Levemir] 45 unit SQ HS each 08/14/23 [Rx] polyethylene glycoL 3350 [Miralax] 17 gm PO DAILY packet 08/14/23 [Rx] Follow up Appointment(s)/Referral(s): Juan Hernandez [STAFF PHYSICIAN] - 08/31/23 4:30 pm Marcello Wyatt MD [Primary Care Provider] - 1 Week (at [facility]) Discharge Disposition: TRANSFER TO SNF/ECF
[2023-08-14 14:08] VITALS: BP 110/69; PULSE 69; RESP 17; TEMP 98.1
[2023-08-15] MEDS ORDERED: cloNIDine 0.2 MG/24HR PATCH TRANSDERM SCH (09:00)
== END 2023-08-14 15:15 ==
LOC: EC 07:46 → OBSVTOIN 12:09 → INTOOBSV 12:09 → 5NMEDONC 12:09 → UNDODISIN 08-14 15:15
PROVIDERS: ADMIT Internal Medicine; ATTEND Internal Medicine
DX: R53.1 Weakness (principal); K51.90 Ulcerative colitis, unspecified, without complications; E66.2 Morbid (severe) obesity with alveolar hypoventilation; I11.9 Hypertensive heart disease without heart failure; E78.2 Mixed hyperlipidemia; E11.42 Type 2 diabetes mellitus with diabetic polyneuropathy; C54.1 Malignant neoplasm of endometrium; I48.0 Paroxysmal atrial fibrillation; I25.10 Atherosclerotic heart disease of native coronary artery without angina pectoris; F41.9 Anxiety disorder, unspecified; G20.A1 Parkinson's disease without dyskinesia, without mention of fluctuations; D56.9 Thalassemia, unspecified; K59.00 Constipation, unspecified; Z68.29 Body mass index [BMI] 29.0-29.9, adult; Z86.73 Personal history of transient ischemic attack (TIA), and cerebral infarction without residual deficits; Z90.5 Acquired absence of kidney; Z90.710 Acquired absence of both cervix and uterus; Z92.21 Personal history of antineoplastic chemotherapy; Z92.3 Personal history of irradiation; Z95.2 Presence of prosthetic heart valve; Z95.5 Presence of coronary angioplasty implant and graft; Z79.01 Long term (current) use of anticoagulants; Z79.02 Long term (current) use of antithrombotics/antiplatelets; Z79.4 Long term (current) use of insulin; Z79.899 Other long term (current) drug therapy; Z88.0 Allergy status to penicillin
CPT/HCPCS: 96376 ×4; 96361 ×3; 96372 ×4; 96374; 99285; 36415; 93005; 97530 ×3; 97162; 97166; 80053 ×2; 80048; 82550; 83605; 83735; 84100; 84484; 85025 ×3; 85610; 85730; 83036; G0378 ×4; J2270 ×4

== ENCOUNTER 2023-08-31 12:31 | Observation (INO) | payer MEDICARE ==
--- NOTE | 2023-08-31 13:05 | ED ---
General Adult HPI - General Chief complaint: Fall Stated complaint: Left knee pain Time Seen by Provider: 08/31/23 12:40 Source: patient, EMS, RN notes reviewed, old records reviewed Mode of arrival: EMS Limitations: no limitations - History of Present Illness Initial comments: This is a 73-year-old female who presents emergency department stating that she was in the senior care because of neuropathy and she needed to told her strength so she can get around her home. Patient states she was discharged earlier today she went home and immediately fell down. Patient states she did fall last night as well senior care. Patient states she fell on top of her left leg and now her leg hurts in her ankle underneath a little bit in the hip. Patient does states she has full range of motion of all areas but they are little bit painful. Patient does not believe she can go home because she thinks she'll be unsteady and falling again. Patient is breathing shortness of breath prior to the fall. Patient denies being lightheaded or dizzy prior to the fall. - Related Data Home Medications Medication Instructions Recorded Confirmed Acetaminophen Tab [Tylenol] 1,000 mg PO Q6H PRN 08/11/23 08/11/23 Apixaban [Eliquis] 5 mg PO BID 08/11/23 08/11/23 Cholecalciferol (Vitamin D3) 125 mcg PO DAILY 08/11/23 08/11/23 [Vitamin D3 (125 MCG = 5,000 IU)] Clopidogrel [Plavix] 75 mg PO HS 08/11/23 08/11/23 Cyclobenzaprine [Flexeril] 5 mg PO TID PRN 08/11/23 08/11/23 Docusate [Colace] 100 mg PO DAILY PRN 08/11/23 08/11/23 Furosemide [Lasix] 20 mg PO DAILY 08/11/23 08/11/23 Insulin Glargine,Hum.rec.anlog 50 - 64 units SQ HS 08/11/23 08/11/23 [Lantus Solostar Pen] Lidocaine 5% Patch [Lidoderm 5% 1 patch TRANSDERM DAILY PRN 08/11/23 08/11/23 Patch] Metoprolol Succinate (ER) [Toprol 100 mg PO BID 08/11/23 08/11/23 XL] Nitroglycerin Sl Tabs [Nitrostat] 0.4 mg SL Q5M PRN 08/11/23 08/11/23 Potassium Chloride ER [K-Dur 10] 10 meq PO BID 08/11/23 08/11/23 Prochlorperazine [Compazine] 10 mg PO Q6H PRN 08/11/23 08/11/23 amLODIPine [Norvasc] 10 mg PO HS 08/11/23 08/11/23 cloNIDine 0.2 MG/24HR PATCH 1 patch TRANSDERM SA 08/11/23 08/11/23 [Catapres-TTS] lisinopriL 40 mg PO BID 08/11/23 08/11/23 Previous Rx's Medication Instructions Recorded Gabapentin [Neurontin] 200 mg PO TID #9 cap 08/14/23 INSULIN ASPART (NovoLOG) [NovoLOG 0 unit SQ ACHS each 08/14/23 (formulary)] Insulin Detemir (Levemir) [Levemir] 45 unit SQ HS each 08/14/23 polyethylene glycoL 3350 [Miralax] 17 gm PO DAILY packet 08/14/23 Allergies Allergy/AdvReac Type Severity Reaction Status Date / Time diltiazem Allergy Rash/Hives Verified 08/31/23 16:24 hydrochlorothiazide Allergy Rash/Hives Verified 08/31/23 16:24 metformin Allergy Rash/Hives Verified 08/31/23 16:24 ondansetron [From Zofran] Allergy Rash/Hives Verified 08/31/23 16:24 Penicillins Allergy Rash/Hives Verified 08/31/23 16:24 Pfeexev-BQM-PlF Reductase Allergy Rash/Hives Verified 08/31/23 16:24 Inhibitor Review of Systems ROS Statement: Those systems with pertinent positive or pertinent negative responses have been documented in the HPI. ROS Other: All systems not noted in ROS Statement are negative. Past Medical History Past Medical History: Atrial Fibrillation, Coronary Artery Disease (CAD), Cancer, Diabetes Mellitus, Hypertension Additional Past Medical History / Comment(s): Parkisons diagnosis History of Any Multi-Drug Resistant Organisms: None Reported Past Surgical History: Section, Cholecystectomy, Heart Catheterization, Heart Catheterization With Stent, Hysterectomy Additional Past Surgical History / Comment(s): Aortic valve, Past Anesthesia/Blood Transfusion Reactions: No Reported Reaction Date of Last Stent Placement:: 2014 Past Psychological History: No Psychological Hx Reported Smoking Status: Never smoker Past Alcohol Use History: None Reported Past Drug Use History: None Reported General Exam - General Exam Comments Initial Comments: GENERAL: Patient is well-developed and well-nourished. Patient is nontoxic and well- hydrated and is in mild distress. ENT: Neck is soft and supple. No significant lymphadenopathy is noted. Oropharynx is clear. Moist mucous membranes. Neck has full range of motion without eliciting any pain. EYES: The sclera were anicteric and conjunctiva were pink and moist. Extraocular movements were intact and pupils were equal round and reactive to light. Eyelids were unremarkable. PULMONARY: Unlabored respirations. Good breath sounds bilaterally. No audible rales rhonchi or wheezing was noted. CARDIOVASCULAR: There is a regular rate and rhythm without any murmurs gallops or rubs. ABDOMEN: Soft and nontender with normal bowel sounds. SKIN: Skin is clear with no lesions or rashes and otherwise unremarkable. NEUROLOGIC: Patient is alert and oriented x3. Cranial nerves II through XII are grossly intact. Motor and sensory are also intact. Normal speech, volume and content. Symmetrical smile. MUSCULOSKELETAL: Normal extremities with adequate strength and full range of motion. Patient has some lateral tenderness of the ankle on examination. There is no swelling or redness LYMPHATICS: No significant lymphadenopathy is noted PSYCHIATRIC: Normal psychiatric evaluation. Limitations: no limitations Course Vital Signs 08/31/23 08/31/23 08/31/23 12:34 14:12 15:58 Temperature 97.5 F L Pulse Rate 75 Pulse Rate [ 86 Pulse Oximetery ] Pulse Rate [ Sitting] Pulse Rate [ Standing] Pulse Rate [ 95 Supine] Respiratory 14 Rate Blood Pressure 131/76 Blood Pressure 116/84 [Right Arm Sitting] Blood Pressure 148/83 136/95 [Right Arm Supine] Blood Pressure [Standing] O2 Sat by Pulse 97 98 98 Oximetry 08/31/23 08/31/23 16:03 16:07 Temperature Pulse Rate Pulse Rate [ Pulse Oximetery ] Pulse Rate [ 103 H Sitting] Pulse Rate [ 95 Standing] Pulse Rate [ Supine] Respiratory Rate Blood Pressure Blood Pressure 115/76 [Right Arm Sitting] Blood Pressure [Right Arm Supine] Blood Pressure 100/43 [Standing] O2 Sat by Pulse 98 97 Oximetry Medical Decision Making - Medical Decision Making EKG is interpreted by myself. EKG shows atrial for ablation 80 bpm QRS 114 QT interval 343 QTC is 389. Patient's EKG shows some T-wave inversions in the lateral leads 1 and aVL. These are seen in previous EKGs Was pt. sent in by a medical professional or institution ([facility]ALVADOR Conde, EXCHANGE FLOOR MANAGER, urgent care, hospital, or senior care...) When possible be specific @ -No Did you speak to anyone other than the patient for history (EMS, parent, family, police, friend...)? What history was obtained from this source @ -No Did you review nursing and triage notes (agree or disagree)? Why? @ -I reviewed and agree with nursing and triage notes Were old charts reviewed (outside hosp., previous admission, EMS record, old EKG, old radiological studies, urgent care reports/EKG's, senior care records)? Report findings @ -I reviewed prior charts and prior lab work on this patient Differential Diagnosis (chest pain, altered mental status, abdominal pain women, abdominal pain men, vaginal bleeding, weakness, fever, dyspnea, syncope, headache, dizziness, GI bleed, back pain, seizure, CVA, palpatations, mental health, musculoskeletal)? @ -Differential Weakness: Hypoglycemia, shock, sepsis, hyponatremia, anemia, infection, DE, ETOH, adverse medicine reaction, overdose, stroke, this is not meant to be an all-inclusive list. EKG interpreted by me (3pts min.). @ -As above X-rays interpreted by me (1pt min.). @ -X-ray the chest shows no acute abnormality, x-ray of the ankle knee and pelvis show no acute abnormality. CT interpreted by me (1pt min.). @ -None done U/S interpreted by me (1pt. min.). @ -None done What testing was considered but not performed or refused? (CT, X-rays, U/S, labs)? Why? @ -None What meds were considered but not given or refused? Why? @ -None Did you discuss the management of the patient with other professionals (professionals i.e. SALVADOR Conde, EXCHANGE FLOOR MANAGER, lab, RT, psych nurse, social work manager, construction plant operator, teacher, space officer, human services case manager)? Give summary @ -With Dr. Wyatt he agreed to admit the patient Was smoking cessation discussed for >3mins.? @ -No Was critical care preformed (if so, how long)? @ -No Were there social determinants of health that impacted care today? How? (Homelessness, low income, unemployed, alcoholism, drug addiction, mcmanus sportation, low edu. Level, literacy, decrease access to med. care, custodial, rehab)? @ -No Was there de-escalation of care discussed even if they declined (Discuss DNR or withdrawal of care, Hospice)? DNR status @ -No What co-morbidities impacted this encounter? (DM, HTN, Smoking, COPD, CAD, Cancer, CVA, ARF, Chemo, Hep., AIDS, mental health diagnosis, sleep apnea, morbid obesity)? @ -None Was patient admitted / discharged? Hospital course, mention meds given and route, prescriptions, significant lab abnormalities, going to OR and other pertinent info. @ -After all the x-rays came back normal we stood the patient up and she was orthostatic positive and she felt way too lightheaded to walk so the patient was given a 506. Fluid and we stood her up and she remained orthostatic and she felt way too uncomfortable to be discharged home because she was afraid she would fall slight spoke with Dr. Wyatt he agreed to admit her. Undiagnosed new problem with uncertain prognosis? @ -No Drug Therapy requiring intensive monitoring for toxicity (Heparin, Nitro, Insulin, Cardizem)? @ -No Were any procedures done? @ -No Diagnosis/symptom? @ -Orthostatic hypotension Acute, or Chronic, or Acute on Chronic? @ -Acute Uncomplicated (without systemic symptoms) or Complicated (systemic symptoms)? @ -Complicated Side effects of treatment? @ -No Exacerbation, Progression, or Severe Exacerbation? @ -No Poses a threat to life or bodily function? How? (Chest pain, USA, DE, pneumonia, PE, COPD, DKA, ARF, appy, cholecystitis, CVA, Diverticulitis, Homicidal, Suicidal, threat to staff... and all critical care pts) @ -No - Lab Data Result diagrams: 08/31/23 14:44 08/31/23 14:44 Lab Results 08/31/23 08/31/23 Range/Units 14:44 14:44 WBC 10.9 H (3.8-10.6) k/uL RBC 4.86 (3.80-5.40) m/uL Hgb 13.5 (11.4-16.0) gm/dL Hct 40.5 (34.0-46.0) % MCV 83.3 (80.0-100.0) fL MCH 27.7 (25.0-35.0) pg MCHC 33.3 (31.0-37.0) g/dL RDW 14.5 (11.5-15.5) % Plt Count 221 (150-450) k/uL MPV 7.8 Neutrophils % 80 % Lymphocytes % 13 % Monocytes % 4 % Eosinophils % 1 % Basophils % 0 % Neutrophils # 8.6 H (1.3-7.7) k/uL Lymphocytes # 1.4 (1.0-4.8) k/uL Monocytes # 0.5 (0-1.0) k/uL Eosinophils # 0.2 (0-0.7) k/uL Basophils # 0.0 (0-0.2) k/uL Sodium 132 L (137-145) mmol/L Potassium 4.1 (3.5-5.1) mmol/L Chloride 98 (98-107) mmol/L Carbon Dioxide 23 (22-30) mmol/L Anion Gap 11 mmol/L BUN 18 H (7-17) mg/dL Creatinine 0.58 (0.52-1.04) mg/dL Est GFR (CKD-EPI)AfAm >90 (>60 ml/min/1.73 sqM) Est GFR (CKD-EPI)NonAf >90 (>60 ml/min/1.73 sqM) Glucose 123 H (74-99) mg/dL Calcium 9.6 (8.4-10.2) mg/dL Total Bilirubin 0.5 (0.2-1.3) mg/dL AST 35 (14-36) U/L ALT 42 H (4-34) U/L Alkaline Phosphatase 101 (38-126) U/L Total Protein 6.9 (6.3-8.2) g/dL Albumin 3.9 (3.5-5.0) g/dL Disposition Clinical Impression: Orthostatic hypotension Disposition: ADMITTED IP TO THIS [facility] Referrals: Marcello Wyatt MD [Primary Care Provider] - 1-2 days Time of Disposition: 16:34
--- NOTE | 2023-08-31 13:31 | XR ---
EXAMINATION TYPE: XR chest 2V DATE OF EXAM: 08/31/2023 COMPARISON: NONE HISTORY: Shortness of breath TECHNIQUE: Frontal and lateral views of the chest are obtained. FINDINGS: Scattered senescent parenchymal changes noted. Hyperinflation compatible with COPD. No evidence for infiltrate. No evidence for atelectasis. Heart size is stable. Mediastinal structures are stable and grossly unremarkable. No evidence for hilar prominence. Degenerative changes dorsal spine. IMPRESSION: 1. No evidence for acute pulmonary disease.
--- NOTE | 2023-08-31 13:31 | XR ---
EXAMINATION TYPE: XR pelvis AP view DATE OF EXAM: 08/31/2023 CLINICAL HISTORY: pain TECHNIQUE: Single view the pelvis is submitted. FINDINGS: No evidence for fracture, dislocation or bony lesion. Joint spaces are well-preserved. S I joints appear symmetric. IMPRESSION: 1. No acute fracture or dislocation seen. ICD 10 NO FRACTURE, INITIAL EVALUATION
--- NOTE | 2023-08-31 13:32 | XR ---
EXAMINATION TYPE: XR ankle complete LT DATE OF EXAM: 08/31/2023 COMPARISON: NONE HISTORY: Pain TECHNIQUE: 3 views of the left ankle are submitted for evaluation. FINDINGS: There is no evidence for fracture or dislocation. Ankle mortise is intact mild soft tissue swelling noted. IMPRESSION: 1. No evidence for acute fracture.
--- NOTE | 2023-08-31 13:35 | XR ---
EXAMINATION TYPE: XR knee complete LT DATE OF EXAM: 08/31/2023 CLINICAL HISTORY: pain TECHNIQUE: Three views of the left knee are obtained. COMPARISON: None. FINDINGS: There is no acute fracture/dislocation. The tri-compartment joint spaces appear within no rmal limits. The overlying soft tissue appears unremarkable. IMPRESSION: There is no acute fracture or dislocation ICD 10 NO FRACTURE, INITIAL EVALUATION
[2023-08-31] MEDS ORDERED: SODIUM CHLORIDE 0.9% 500 ML 500 ML IV ONE (14:17)
[2023-08-31 15:19] LABS: Basophils % (A) 0 %; Eosinophils # (A) 0.2 k/uL (0-0.7); Eosinophils % (A) 1 %; HCT 40.5 % (34.0-46.0); HGB 13.5 gm/dL (11.4-16.0); Lymphocytes # (A) 1.4 k/uL (1.0-4.8); Lymphocytes % (A) 13 %; MCH 27.7 pg (25.0-35.0); MCHC 33.3 g/dL (31.0-37.0); MCV 83.3 fL (80.0-100.0); Mean Platelet Volume 7.8; Monocytes # (A) 0.5 k/uL (0-1.0); Monocytes % (A) 4 %; Neutrophils # (A) 8.6 k/uL (1.3-7.7); Neutrophils % (A) 80 %; Platelet Count 221 k/uL (150-450); RBC 4.86 m/uL (3.80-5.40); RDW 14.5 % (11.5-15.5); WBC 10.9 k/uL (3.8-10.6)
[2023-08-31 15:30] LABS: ALT 42 U/L (4-34); AST 35 U/L (14-36); African American GFR (CKD) >90 (>60 ml/min/1.73 sqM); Albumin 3.9 g/dL (3.5-5.0); Alkaline Phosphatase 101 U/L (38-126); Anion Gap 11 mmol/L; Blood Urea Nitrogen 18 mg/dL (7-17); Calcium 9.6 mg/dL (8.4-10.2); Carbon Dioxide 23 mmol/L (22-30); Chloride 98 mmol/L (98-107); Glucose 123 mg/dL (74-99); Non-African American GFR(CKD) >90 (>60 ml/min/1.73 sqM); Potassium 4.1 mmol/L (3.5-5.1); Sodium 132 mmol/L (137-145); Total Bilirubin 0.5 mg/dL (0.2-1.3); Total Protein 6.9 g/dL (6.3-8.2)
[2023-08-31] MEDS ORDERED: METOCLOPRAMIDE 5 MG/ML 2 ML VIAL IVP STA (15:34)
[2023-08-31] MEDS ORDERED: SODIUM CHLORIDE 0.9% 500 ML 500 ML IV STA (16:12)
[2023-08-31] MEDS ORDERED: SODIUM CHLORIDE 0.9% 1,000 ML IV ONE (16:40)
[2023-08-31] MEDS ORDERED: DOCUSATE 100 MG CAP PO PRN (21:09)
[2023-08-31] MEDS ORDERED: NITROGLYCERIN SL TABS 0.4 MG TAB SUBLINGUAL PRN (21:09)
[2023-08-31] MEDS ORDERED: CYCLOBENZAPRINE 5 MG TAB PO PRN (21:09)
[2023-08-31] MEDS ORDERED: DEXTROSE 50% SYRINGE 50 ML IVP PRN ×2 (21:13)
[2023-08-31 21:29] LABS: Glucose,Whole Blood 163 mg/dL (70-110)
[2023-08-31] MEDS: INSULIN DETEMIR (LEVEMIR) 100 UNIT/ML SYR SQ SCH (22:02)
[2023-08-31] MEDS: APIXABAN 5 MG TAB PO SCH (22:02)
[2023-08-31] MEDS: CLOPIDOGREL 75 MG TAB PO SCH (22:03)
[2023-08-31] MEDS: METOPROLOL SUCCINATE (ER) 100 MG TAB.ER.24H PO SCH (22:03)
[2023-08-31] MEDS: ACETAMINOPHEN TAB 500 MG TAB PO PRN (22:03)
[2023-08-31] MEDS: POTASSIUM CHLORIDE ER 10 MEQ TAB.ER.PRT PO SCH (22:03)
[2023-08-31] MEDS: GABAPENTIN 300 MG CAP PO SCH (22:04)
[2023-08-31] MEDS: amLODIPine 5 MG TAB PO SCH (22:04)
[2023-09-01] MEDS: GABAPENTIN 300 MG CAP PO SCH ×3 (05:55→20:27)
[2023-09-01 05:56] LABS: Glucose,Whole Blood 112 mg/dL (70-110)
[2023-09-01] MEDS: INSULIN ASPART (NovoLOG) 100 UNIT/ML VIAL SQ SCH ×4 (06:19→20:53)
--- NOTE | 2023-09-01 08:20 | P.CRDCN ---
History of Present Illness History of present illness: HISTORY OF PRESENT ILLNESS: This is a 73-year-old female with a past medical history significant for coronary artery disease with previous 5 vessel CABG, aortic valve replacement in 2015, atrial fibrillation, hypertension, diabetes, neuropathy, obstructive sleep apnea, hyperlipidemia, TIA, and uterine cancer with total abdominal hysterectomy with radiation and chemotherapy. Patient does not follow with a sausage [facility]. We have been asked to see the patient in consultation for syncope. Patient examined at the bedside. The patient presented to the hospital secondary to a syncopal episode. The patient was recently discharged from a [facility] home. She reports a significant history of neuropathy and generalized weakness which she attributes to her falls. She currently denies any chest pain or pressure. She denies any shortness of breath. Patient did have positive orthostatic blood pressures starting at 136/95 dropping to 100/43 with standing. * EKG reveals atrial fibrillation with controlled ventricular rate * Chest xray negative for acute process * No previous echocardiogram or cardiac catheterization available in EMR for rev iew REVIEW OF SYSTEMS: At the time of my exam: CONSTITUTIONAL: Denies fever or chills. HEENT: Denies blurred vision, vision changes, or eye pain. Denies hemoptysis CARDIOVASCULAR: Denies chest pain. Denies orthopnea. Denies PND. Denies palpitations RESPIRATORY: Denies shortness of breath. GASTROINTESTINAL: Denies abdominal pain. Denies nausea or vomiting. HEMATOLOGIC: Denies bleeding disorders. GENITOURINARY: Denies any blood in urine. SKIN: Denies pruitis. Denies rash. PHYSICAL EXAM: VITAL SIGNS: Reviewed. GENERAL: Well-developed in no acute distress. HEENT: Head is normocephalic. Pupils are equal, round. Sclerae anicteric. Mucous membranes of the mouth are moist. Neck supple. No JVD or thyromegaly LUNGS: Respirations even and unlabored. Lungs essentially clear to auscultation bilaterally. HEART: Irregular rate and rhythm. S1 and S2 heard. ABDOMEN: Soft. Nondistended. Nontender. EXTREMITIES: Normal range of motion. No clubbing or cyanosis. Peripheral pulses intact. No lower extremity edema NEUROLOGIC: Awake and alert. Oriented x 3. ASSESSMENT: Syncope Orthostatic hypotension Peripheral neuropathy Coronary artery disease with previous 5 vessel CABG History of bioprosthetic aortic valve replacement, 2015 Uterine cancer with total abdominal hysterectomy with radiation and chemotherapy Paroxysmal atrial fibrillation Hypertension Hyperlipidemia Diabetes Obstructive sleep apnea History of TIA PLAN: Obtain 2-D echo to assess cardiac structure and function Add Midodrine 2.5mg TID Continue additional cardiac medications Continue to monitor orthostatic blood pressures Continue telemetry monitoring Apply KATLYN hose to bilateral lower extremities Further recommendations pending patient's course Nurse practitioner note has been reviewed by physician. Signing provider agrees with the documented findings, assessment, and plan of care. Past Medical History Past Medical History: Atrial Fibrillation, Coronary Artery Disease (CAD), Cancer, Diabetes Mellitus, Hypertension Additional Past Medical History / Comment(s): Parkisons diagnosis , uterine cancer currently on chemo , "partially atrophied right kidney", vertigo History of Any Multi-Drug Resistant Organisms: None Reported Past Surgical History: Section, Cholecystectomy, Heart Catheterization, Heart Catheterization With Stent, Hysterectomy Additional Past Surgical History / Comment(s): Aortic valve, Past Anesthesia/Blood Transfusion Reactions: No Reported Reaction Date of Last Stent Placement:: 2014 Past Psychological History: No Psychological Hx Reported Smoking Status: Never smoker Past Alcohol Use History: None Reported Past Drug Use History: None Reported Medications and Allergies Home Medications Medication Instructions Recorded Confirmed Type Acetaminophen Tab [Tylenol] 1,000 mg PO Q6H PRN 08/11/23 08/31/23 History Apixaban [Eliquis] 5 mg PO BID 08/11/23 08/31/23 History Cholecalciferol (Vitamin D3) 125 mcg PO DAILY 08/11/23 08/31/23 History [Vitamin D3 (125 MCG = 5,000 IU)] Clopidogrel [Plavix] 75 mg PO HS 08/11/23 08/31/23 History Cyclobenzaprine [Flexeril] 5 mg PO TID PRN 08/11/23 08/31/23 History Docusate [Colace] 100 mg PO DAILY PRN 08/11/23 08/31/23 History Furosemide [Lasix] 20 mg PO DAILY 08/11/23 08/31/23 History Lidocaine 5% Patch [Lidoderm 5% 1 patch TRANSDERM DAILY PRN 08/11/23 08/31/23 History Patch] Metoprolol Succinate (ER) [Toprol 100 mg PO BID 08/11/23 08/31/23 History XL] Nitroglycerin Sl Tabs [Nitrostat] 0.4 mg SL Q5M PRN 08/11/23 08/31/23 History Potassium Chloride ER [K-Dur 10] 10 meq PO BID 08/11/23 08/31/23 History cloNIDine 0.2 MG/24HR PATCH 1 patch TRANSDERM SA 08/11/23 08/31/23 History [Catapres-TTS] Insulin Detemir (Levemir) [Levemir] 45 unit SQ HS each 08/14/23 08/31/23 Rx polyethylene glycoL 3350 [Miralax] 17 gm PO DAILY packet 08/14/23 08/31/23 Rx DULoxetine HCL [Cymbalta] 20 mg PO DAILY 08/31/23 08/31/23 History Gabapentin [Neurontin] 300 mg PO TID@0600,1400,2200 08/31/23 08/31/23 History INSULIN ASPART (NovoLOG) [NovoLOG See Protocol SQ ACHS 08/31/23 08/31/23 History (formulary)] Menthol [Biofreeze] 1 applic TOPICAL Q8H PRN 08/31/23 08/31/23 History amLODIPine [Norvasc] 5 mg PO HS 08/31/23 08/31/23 History lisinopriL [Zestril] 20 mg PO DAILY 08/31/23 08/31/23 History Allergies Allergy/AdvReac Type Severity Reaction Status Date / Time diltiazem Allergy Rash/Hives Verified 08/31/23 16:24 hydrochlorothiazide Allergy Rash/Hives Verified 08/31/23 16:24 metformin Allergy Rash/Hives Verified 08/31/23 16:24 ondansetron [From Zofran] Allergy Rash/Hives Verified 08/31/23 16:24 Penicillins Allergy Rash/Hives Verified 08/31/23 16:24 Mpetdoz-SCA-MsJ Reductase Allergy Rash/Hives Verified 08/31/23 16:24 Inhibitor Physical Exam Vitals: Vital Signs Temp Pulse Pulse Pulse Pulse Pulse Resp 09/01/23 07:00 98.4 F 59 L 86 83 18 09/01/23 02:31 98.2 F 79 16 08/31/23 21:42 82 75 82 08/31/23 20:21 98.0 F 08/31/23 20:20 97.9 F 96 15 08/31/23 18:00 85 08/31/23 17:00 96 18 08/31/23 16:07 95 08/31/23 16:03 103 H 08/31/23 16:00 80 18 08/31/23 15:58 95 08/31/23 14:12 86 08/31/23 12:34 97.5 F L 75 14 BP BP BP BP Pulse Ox 09/01/23 07:00 146/71 132/76 145/75 97 09/01/23 02:31 117/72 98 08/31/23 21:42 115/75 154/83 112/65 08/31/23 20:21 08/31/23 20:20 173/89 97 08/31/23 18:00 127/64 98 08/31/23 17:00 142/85 08/31/23 16:07 100/43 97 08/31/23 16:03 115/76 98 08/31/23 16:00 136/95 98 08/31/23 15:58 136/95 98 08/31/23 14:12 116/84 148/83 98 08/31/23 12:34 131/76 97 Intake and Output 08/31/23 09/01/23 09/01/23 22:59 06:59 14:59 Other: Voiding Method Toilet Bedside Commode # Voids 1 1 # Bowel Movements 1 Weight 78.925 kg Results 08/31/23 14:44 08/31/23 14:44 Cardiac Enzymes 08/31/23 Range/Units 14:44 AST 35 (14-36) U/L CBC 08/31/23 Range/Units 14:44 WBC 10.9 H (3.8-10.6) k/uL RBC 4.86 (3.80-5.40) m/uL Hgb 13.5 (11.4-16.0) gm/dL Hct 40.5 (34.0-46.0) % Plt Count 221 (150-450) k/uL Comprehensive Metabolic Panel 08/31/23 Range/Units 14:44 Sodium 132 L (137-145) mmol/L Potassium 4.1 (3.5-5.1) mmol/L Chloride 98 (98-107) mmol/L Carbon Dioxide 23 (22-30) mmol/L BUN 18 H (7-17) mg/dL Creatinine 0.58 (0.52-1.04) mg/dL Glucose 123 H (74-99) mg/dL Calcium 9.6 (8.4-10.2) mg/dL AST 35 (14-36) U/L ALT 42 H (4-34) U/L Alkaline Phosphatase 101 (38-126) U/L Total Protein 6.9 (6.3-8.2) g/dL Albumin 3.9 (3.5-5.0) g/dL Current Medications Generic Name Dose Route Start Last Admin Trade Name Freq PRN Reason Stop Dose Admin Acetaminophen 1,000 mg 08/31/23 21:09 08/31/23 22:03 Acetaminophen Tab 500 Mg Tab PO 1,000 mg Q6H PRN Administration Fever and/ or Pain Amlodipine Besylate 5 mg 08/31/23 22:00 08/31/23 22:04 Amlodipine 5 Mg Tab PO 5 mg HS FATEMEH Administration Apixaban 5 mg 08/31/23 22:00 08/31/23 22:02 Apixaban 5 Mg Tab PO 5 mg BID FATEMEH Administration Protocol Cholecalciferol 125 mcg 09/01/23 09:00 Cholecalciferol 125 Mcg (5000 Iu) Tablet PO DAILY [facility] Clonidine HCl 1 patch 09/05/23 09:00 Clonidine 0.2 Mg/24hr Patch TRANSDERM [facility] Clopidogrel Bisulfate 75 mg 08/31/23 22:00 08/31/23 22:03 Clopidogrel 75 Mg Tab PO 75 mg HS FATEMEH Administration Cyclobenzaprine HCl 5 mg 08/31/23 21:09 Cyclobenzaprine 5 Mg Tab PO TID PRN Muscle Spasm Dextrose/Water 25 ml 08/31/23 21:13 Dextrose 50% Syringe 50 Ml IVP PER PROTOCOL PRN Hypoglycemia Protocol Dextrose/Water 50 ml 08/31/23 21:13 Dextrose 50% Syringe 50 Ml IVP PER PROTOCOL PRN Hypoglycemia Protocol Docusate Sodium 100 mg 08/31/23 21:09 Docusate 100 Mg Cap PO DAILY PRN Constipation Duloxetine HCl 20 mg 09/01/23 09:00 Duloxetine Hcl 20 Mg Capsule.Dr PO DAILY FATEMEH Furosemide 20 mg 09/01/23 09:00 Furosemide 20 Mg Tab PO DAILY [facility] Gabapentin 300 mg 08/31/23 22:00 09/01/23 05:55 Gabapentin 300 Mg Cap PO 300 mg TID@0600,1400,2200 FATEMEH Administration Insulin Aspart 0 unit 09/01/23 07:30 09/01/23 06:19 Insulin Aspart (Novolog) 100 Unit/Ml Vial SQ Not Given ACHS [facility] Protocol Insulin Detemir 45 unit 08/31/23 22:00 08/31/23 22:02 Insulin Detemir (Levemir) 100 Unit/Ml Syr SQ 45 unit HS FATEMEH Administration Lisinopril 20 mg 09/01/23 09:00 Lisinopril 20 Mg Tab PO DAILY FATEMEH Metoprolol Succinate 100 mg 08/31/23 22:00 08/31/23 22:03 Metoprolol Succinate (Er) 100 Mg Tab.Er.24h PO 100 mg BID FATEMEH Administration Midodrine 2.5 mg 09/01/23 12:30 Midodrine 5 Mg Tab PO AC-TID FATEMEH Nitroglycerin 0.4 mg 08/31/23 21:09 Nitroglycerin Sl Tabs 0.4 Mg Tab SUBLINGUAL Q5M PRN Chest Pain Polyethylene Glycol 17 gm 09/01/23 09:00 Polyethylene Glycol 3350 17 Gm Powd.Pack PO DAILY FATEMEH Potassium Chloride 10 meq 08/31/23 22:00 08/31/23 22:03 Potassium Chloride Er 10 Meq Tab.Er.Prt PO 10 meq BID FATEMEH Administration Intake and Output 08/31/23 09/01/23 09/01/23 22:59 06:59 14:59 Other: Voiding Method Toilet Bedside Commode # Voids 1 1 # Bowel Movements 1 Weight 78.925 kg 08/31/23 14:44 08/31/23 14:44
[2023-09-01] MEDS: POTASSIUM CHLORIDE ER 10 MEQ TAB.ER.PRT PO SCH ×2 (09:33→20:27)
[2023-09-01] MEDS: METOPROLOL SUCCINATE (ER) 100 MG TAB.ER.24H PO SCH ×2 (09:34→20:53)
[2023-09-01] MEDS: lisinopriL 20 MG TAB PO SCH (09:34)
[2023-09-01] MEDS: FUROSEMIDE 20 MG TAB PO SCH (09:34)
[2023-09-01] MEDS: APIXABAN 5 MG TAB PO SCH ×2 (09:34→20:27)
[2023-09-01] MEDS: DULoxetine HCL 20 MG CAPSULE.DR PO SCH ×2 (09:35→13:13)
[2023-09-01] MEDS: polyethylene glycoL 3350 17 GM POWD.PACK PO SCH (09:35)
[2023-09-01] MEDS: CHOLECALCIFEROL 125 MCG (5000 IU) TABLET PO SCH (09:43)
[2023-09-01] MEDS: MIDODRINE 5 MG TAB PO SCH ×2 (09:44→18:43)
[2023-09-01 11:53] LABS: Glucose,Whole Blood 136 mg/dL (70-110)
--- NOTE | 2023-09-01 17:17 | CA ---
Transthoracic Echo Report Name: Kim Lynn Age: 73 Gender: F : 1950 Exam Date: 09/01/2023 13:44 Exam Location: [facility] Ht (in): 64 Wt (lb): 174 Ordering Physician: Jose Carlos Barrera MD ([id number]) Attending/Referring Phys: Bruce TILLEY Demo Specialist Rea Dey RDCS Procedure CPT: Indications: positive orthostatic hypotension Cardiac Hx: Technical Quality: Fair Contrast 1: Total Dose (mL): Contrast 2: Total Dose (mL): MEASUREMENTS (Male / Female) Normal Values 2D ECHO LV Diastolic Diameter PLAX 4.3 cm 4.2 - 5.9 / 3.9 - 5.3 cm LV Systolic Diameter PLAX 3.3 cm IVS Diastolic Thickness 1.6 cm 0.6 - 1.0 / 0.6 - 0.9 cm LVPW Diastolic Thickness 1.4 cm 0.6 - 1.0 / 0.6 - 0.9 cm LV Relative Wall Thickness 0.7 RV Internal Dim ED PLAX 2.5 cm LVOT Diameter 1.6 cm LA Volume 78.9 cm??? 18 - 58 / 22 - 52 cm??? LA Volume Index 41.2 cm???/m??? 16 - 28 cm???/m??? M-MODE Aortic Root Diameter MM 2.4 cm LA Systolic Diameter MM 4.6 cm LA Ao Ratio MM 1.9 AV Cusp Separation MM 1.3 cm DOPPLER AV Peak Velocity 254.1 cm/s AV Peak Gradient 25.8 mmHg AV Mean Velocity 161.0 cm/s AV Mean Gradient 12.4 mmHg AV Velocity Time Integral 42.9 cm LVOT Peak Velocity 118.2 cm/s LVOT Peak Gradient 5.6 mmHg LVOT Velocity Time Integral 23.5 cm LVOT Stroke Volume 44.7 cm??? LVOT Stroke Volume Index 24.2 ml/m??? LVOT Cardiac Index 2173.1 cm???/min???m??? AV Area Cont Eq vti 1.0 cm??? AV Area Cont Eq pk 0.9 cm??? MV Area PHT 4.3 cm??? Mitral E Point Velocity 138.5 cm/s Mitral A Point Velocity 0.7 cm/s Mitral E to A Ratio 195.7 MV Deceleration Time 178.0 ms MV E' Velocity 4.5 cm/s Mitral E to MV E' Ratio 30.9 TR Peak Velocity 334.9 cm/s TR Peak Gradient 44.9 mmHg Right Atrial Pressure 20.0 mmHg Pulmonary Artery Systolic Pressu 64.9 mmHg Right Ventricular Systolic Press 64.9 mmHg FINDINGS Left Ventricle Moderately increased left ventricular wall thickness. Left ventricular cavity size normal. Abnormal (paradoxical) septal motion consistent with postoperative state. Left ventricular ejection fraction is estimated at 50-55 %. Right Ventricle Normal right ventricular size and function. Moderate to severe pulmonary hypertension. Right Atrium Normal right atrial size. Left Atrium Severely increased left atrial volume. Mildly increased left atrial area. Mitral Valve Severe mitral annular calcification. Mitral valve thickened. Aortic Valve Normally functioning bioprosthetic aortic valve without stenosis with a peak velocity of 2.5 m/s, peak gradient 26 mmHg, mean gradient 12 mmHg, and estimated aortic valve area of 1 cm???. No aortic regurgitation. Tricuspid Valve Structurally normal tricuspid valve. Mild tricuspid regurgitation. Pulmonic Valve Structurally normal pulmonic valve. Pericardium No pericardial effusion. Aorta Normal size aortic root and proximal ascending aorta. CONCLUSIONS Normal LV systolic function Normally functioning bioprosthetic valve in aortic position Severe mitral annular are calcification Previewed by: Dr. Jose Carlos Barrera MD (Electronically Signed) Final Date: 01 September 2023 17:16
[2023-09-01 17:28] LABS: Glucose,Whole Blood 170 mg/dL (70-110)
[2023-09-01] MEDS: ACETAMINOPHEN TAB 500 MG TAB PO PRN (18:47)
--- NOTE | 2023-09-01 20:25 | P.HPIM ---
History of Present Illness H&P Date: 08/31/23 Chief Complaint: Orthostatic hypotension HISTORY OF PRESENT ILLNESS: This is a 73-year-old female one of my patient with a previous medical history significant for coronary artery disease status post coronary artery bypass graft for 5 vessels along with aortic valve replacement with 21 mm bioprosthetic valve in 06/05/2015, hypertension and hypertensive cardio vascular disease, proximal is better for abrasion, diabetes mellitus type 2 diabetic neuropathy, hyperlipidemia, ulcerative colitis, TIA, obesity with obstructive sleep apnea and obesity hypoventilation syndrome, thalassemia, anxiety, patient was diagnosed with uterine cancer back in 2019 underwent total abdominal hysterectomy and bilateral sopping oophorectomy by Dr. Mosqueda followed by adjuvant radiation therapy, she finished relation therapy with her vision oncology at [facility] and she had a CAT scan that showed no evidence of recurrence of disease back in March 2022, patient eventually developed to have a significant abdominal pain associated with rectal bleed was seen at [facility] was admitted to the hospital after she has had a computed tomography scan of the abdomen and pelvis that didn't show evidence of a large 6.36.3 times a day centimeter lobulated mass in the small bowel mesentery she was seen at that time by hematology oncology was r ecommended to go for a CT-guided biopsy which was done on 12/23/2022 this is came back positive for endometrial primary with ER and MA positive she underwent staging PET scan with Dr. Hernandez in December 2022 and that showed positive uptake in the mass and along with the left hemipelvis with increased uptake in the left iliac lymph nodes, patient was initially referred to Dr. Richards who recommended for the patient to go for chemotherapy as well as immunotherapy, she was started on carboplatin and Taxol and Keytruda on 04/27/2023 and she has finished 5 cycles on 07/22/2023, patient was recently hospitalized at [facility] about a month ago because of progressive weakness of both lower extremities due to significant chemotherapy-induced polyneuropathy, and the patient was sent to [facility] physical therapy rehabilitation, as a matter fact she was seen by my service on Thursday prior to her discharge on Thursday, and she appears to be a bit hypertensive, therefore her medications were adjusted I've decrease her amlodipine to 5 minute gram once every day and lisinopril to 40 mg once every day, and she was given clonidine patch once every day, and the patient was supposed to be discharged home today from [facility] that she was taken home by her daughter, on her way home her knees buckled from under her leg, and she went down without hurting herself, so she ended up coming to the emergency department at [facility] for evaluation patient did appear to have a significant orthostatic hypotension, did receive IV fluid resuscitation, and she had multiple x-rays that did not show evidence of acute fracture, but because of the safety she was admitted to the hospital for evaluation of orthostatic hypertension. REVIEW OF SYSTEMS: Constitutional: No documented fever, no chills, no night sweats. No weight change. No weakness, fatigue or lethargy. No daytime sleepiness. HEENT: No headache. No blurred vision or double vision, no loss of vision. No loss of Hearing, no ringing in the ears, no dizziness. No nasal drainage or congestion. No epistaxis. No sore throat. Lungs: No shortness of breath, no cough, no sputum production. No wheezing. Reports dyspnea with activity. Cardiovascular: No chest pain, no lower extremity edema. No palpitations. No paroxysmal nocturnal dyspnea. No orthopnea. No lightheadedness or dizziness. No syncopal episodes. Abdominal: Reports no abdominal pain. No nausea, vomiting. No diarrhea. No constipation. No bloody or tarry stools reports loss of appetite. Genitourinary: No dysuria, increased frequency, urgency. No urinary retention. Musculoskeletal: No myalgias. positive for muscle weakness, positive for gait dysfunction, frequent falls. back pain. No neck pain. Integumentary: No wounds, no lesions. No rash or pruritus. No unusual bruising. No change in hair or nails. Neurologic: No aphasia. No facial droop. No change in mentation. No head injury. No headache. No paralysis.positive for paresthesia. Psychiatric: No depression. No anxiety. No mood swings. Endocrine: No abnormal blood sugars. No weight change. PAST MEDICAL HISTORY: Coronary artery disease status post coronary artery bypass graft 5 Aortic valve disease status post aortic valve replacement with 21 mm by prostatic valve 06/05/2015 Paroxysmal atrial fibrillation Diabetes mellitus type 2 with diabetic polyneuropathy Essential hypertension Mixed hyperlipidemia Ulcerative colitis Obstructive sleep apnea Parkinson disease Thalassemia Anxiety Malignant neoplasm of the uterus 2018 with recurrence in 2022 PAST SURGICAL HISTORY: Tonsillectomy and adenoidectomy Bilateral tubal ligation Total abdominal hysterectomy with bilateral salpingo-oophorectomy due to uterine cancer followed by external beam radiation therapy he be RT Cholecystectomy. Bilateral cataract surgery Left heart catheter physician with PCI with a science stent in the left circumflex artery 12/20/2015 Left heart catheterization with PCI in the diagonal branch 03/17/2016 CABG 5 with aortic valve replacement with a 21 mm 06/05/[address]-guided biopsy of the small bowel mesentery mass. SOCIAL HISTORY: Patient is a lifelong nonsmoker she denies any alcohol ingestion she denies any drug use or abuse, she uses a walker for ambulation. FAMILY HISTORY: Father at age 74 from heart disease had diabetes and Parkinson disease as well he also had history of hypertension and he from NH, mother at age of 82 from heart disease and cancer she did from thrombus in the small intestine sign, patient has one son and 2 daughters no major medical problems. PHYSICAL EXAMINATION: General: 73-year-old female laying down in bed in no apparent distress. HEENT: Head is atraumatic, normocephalic, pupils were equal round reactive to light and recommendation, extraocular muscle movement were intact, sclera no nicteric, conjunctivae were pale, mucous membranes of the mouth are somewhat dry. Neck: Supple, no JVP, normal carotid upstroke bilaterally, no lymphadenopathy. Chest: Decreased breath sounds at the bases, few rhonchi, no extremity wheezes, no chest wall tenderness, no intercostal retractions. Heart: First heart sound is normal, second heart sound is normal there i JORGE 2/6 located at the left sternal border Abdomen: Soft, nontender, nondistended, positive bowel sounds. Extremities: There is no edema no calf tenderness DP +2 bilaterally. Neurologic examination: Patient is awake alert and oriented X3 cranial nerves II-12 appear grossly intact, muscle power were 4 out of 5 in upper extremities and 3 out of 5 in bilateral lower extremities, deep tendon reflexes normal bilaterally. ASSESSMENT AND PLAN: 1. Orthostatic hypotension. Patient did receive a liter of IV fluid in the emergency department, we will decrease her routine 5 mg once every day, decreased lisinopril 20 mg once every day, patient will have bilateral knee-high KATLYN hose, she will be seen in consultation by cardiology she may need to be started on Midodrin 2. Hypertension and hypertensive cardiovascular disease. Continue patient on metoprolol ER 100 mg orally twice every day, amlodipine 5 mg once every, as well as lisinopril 20 mg orally once every day. and TTS-1 q week 3. Mixed hyperlipidemia. Patient was advised to be started on statin however she refused to the ALLERGY and side effects, she also did refuse PCSK-9 INH 4. Coronary artery disease status post coronary artery bypass graft as well as PCI. Continue patient on Plavix 75 mg orally once every day, metoprolol ER 100 mg orally twice every day, monitor the patient's symptoms very closely patient currently follows with cardiology in [facility]. 5. Diabetes mellitus type 2 into the patient on Lantus 48 units at bedtime along with the Humalog per sliding scale insulin. Monitor the patient blood glucose level before each meal and bedtime. 6. History of uterine cancer status post total abdominal hysterectomy and bilateral sopping go for nephrectomy in 2018 followed by EBRT . With recurrence of her disease in 2022 status post 5 cycles of carboplatin, Taxol, and Keytruda, patient 6 cycles will be placed on hold, she was seen in consultation by hematology oncology. 7. Recurrent TIA. Continue patient on clopidogrel 75 mg once every day. 8. Atrial fibrillation. Continue patient on metoprolol ER 100 mg orally twice every day, continue patient on Eliquis 5mg orally twice every day. 9. Constipation. Start the patient on MiraLAX 17 g in 8 ounces of water along with Colace 100 mg orally twice every day. 10. 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 Continue gabapentin 300 mg orally 2 times a day. 11. DVT prophylaxis. Continue patient on Eliquis 5 mg orally twice every day. 12. Medical debility. Physical therapy evaluation. 13. fiber worker consultation for discharge planning. 14. Patient elected for full code. Past Medical History Past Medical History: Atrial Fibrillation, Coronary Artery Disease (CAD), Cancer, Diabetes Mellitus, Hypertension Additional Past Medical History / Comment(s): Parkisons diagnosis , uterine cancer currently on chemo , "partially atrophied right kidney", vertigo History of Any Multi-Drug Resistant Organisms: None Reported Past Surgical History: Section, Cholecystectomy, Heart Catheterization, Heart Catheterization With Stent, Hysterectomy Additional Past Surgical History / Comment(s): Aortic valve, Past Anesthesia/Blood Transfusion Reactions: No Reported Reaction Date of Last Stent Placement:: 2014 Past Psychological History: No Psychological Hx Reported Smoking Status: Never smoker Past Alcohol Use History: None Reported Past Drug Use History: None Reported Medications and Allergies Home Medications Medication Instructions Recorded Confirmed Type Acetaminophen Tab [Tylenol] 1,000 mg PO Q6H PRN 08/11/23 08/31/23 History Apixaban [Eliquis] 5 mg PO BID 08/11/23 08/31/23 History Cholecalciferol (Vitamin D3) 125 mcg PO DAILY 08/11/23 08/31/23 History [Vitamin D3 (125 MCG = 5,000 IU)] Clopidogrel [Plavix] 75 mg PO HS 08/11/23 08/31/23 History Cyclobenzaprine [Flexeril] 5 mg PO TID PRN 08/11/23 08/31/23 History Docusate [Colace] 100 mg PO DAILY PRN 08/11/23 08/31/23 History Furosemide [Lasix] 20 mg PO DAILY 08/11/23 08/31/23 History Lidocaine 5% Patch [Lidoderm 5% 1 patch TRANSDERM DAILY PRN 08/11/23 08/31/23 History Patch] Metoprolol Succinate (ER) [Toprol 100 mg PO BID 08/11/23 08/31/23 History XL] Nitroglycerin Sl Tabs [Nitrostat] 0.4 mg SL Q5M PRN 08/11/23 08/31/23 History Potassium Chloride ER [K-Dur 10] 10 meq PO BID 08/11/23 08/31/23 History cloNIDine 0.2 MG/24HR PATCH 1 patch TRANSDERM SA 08/11/23 08/31/23 History [Catapres-TTS] Insulin Detemir (Levemir) [Levemir] 45 unit SQ HS each 08/14/23 08/31/23 Rx polyethylene glycoL 3350 [Miralax] 17 gm PO DAILY packet 08/14/23 08/31/23 Rx DULoxetine HCL [Cymbalta] 20 mg PO DAILY 08/31/23 08/31/23 History Gabapentin [Neurontin] 300 mg PO TID@0600,1400,2200 08/31/23 08/31/23 History INSULIN ASPART (NovoLOG) [NovoLOG See Protocol SQ ACHS 08/31/23 08/31/23 History (formulary)] Menthol [Biofreeze] 1 applic TOPICAL Q8H PRN 08/31/23 08/31/23 History amLODIPine [Norvasc] 5 mg PO HS 08/31/23 08/31/23 History lisinopriL [Zestril] 20 mg PO DAILY 08/31/23 08/31/23 History Allergies Allergy/AdvReac Type Severity Reaction Status Date / Time diltiazem Allergy Rash/Hives Verified 08/31/23 16:24 hydrochlorothiazide Allergy Rash/Hives Verified 08/31/23 16:24 metformin Allergy Rash/Hives Verified 08/31/23 16:24 ondansetron [From Zofran] Allergy Rash/Hives Verified 08/31/23 16:24 Penicillins Allergy Rash/Hives Verified 08/31/23 16:24 Uwoejcy-PRU-GiB Reductase Allergy Rash/Hives Verified 08/31/23 16:24 Inhibitor Physical Exam Vitals: Vital Signs Temp Pulse Pulse Pulse Pulse Resp BP 09/01/23 15:00 98.2 F 72 18 09/01/23 14:00 18 09/01/23 08:00 18 09/01/23 07:00 98.4 F 59 L 86 83 18 146/71 09/01/23 02:31 98.2 F 79 16 08/31/23 21:42 82 75 82 115/75 08/31/23 20:21 98.0 F 08/31/23 20:20 97.9 F 96 15 BP BP Pulse Ox 09/01/23 15:00 150/69 97 09/01/23 14:00 09/01/23 08:00 09/01/23 07:00 132/76 145/75 97 09/01/23 02:31 117/72 98 08/31/23 21:42 154/83 112/65 08/31/23 20:21 08/31/23 20:20 173/89 97 Intake and Output 09/01/23 09/01/23 09/01/23 06:59 14:59 22:59 Intake Total 480 Output Total 1100 Balance 480 -1100 Intake: Oral 480 Output: Urine 1100 Other: Voiding Method Toilet Bedside Commode # Voids 1 1 Results CBC & Chem 7: 08/31/23 14:44 08/31/23 14:44 Labs: Abnormal Lab Results - Last 24 Hours (Table) 08/31/23 09/01/23 09/01/23 Range/Units 21:27 05:36 05:55 POC Glucose (mg/dL) 163 H 112 H (70-110) mg/dL Hemoglobin A1c 6.7 H (<=6.0) % 09/01/23 09/01/23 Range/Units 11:51 17:26 POC Glucose (mg/dL) 136 H 170 H (70-110) mg/dL Hemoglobin A1c (<=6.0) %
[2023-09-01] MEDS: CLOPIDOGREL 75 MG TAB PO SCH (20:27)
[2023-09-01 20:28] LABS: Glucose,Whole Blood 153 mg/dL (70-110)
[2023-09-01] MEDS: amLODIPine 5 MG TAB PO SCH (20:28)
[2023-09-01] MEDS: INSULIN DETEMIR (LEVEMIR) 100 UNIT/ML SYR SQ SCH (20:28)
[2023-09-02 06:32] LABS: Glucose,Whole Blood 127 mg/dL (70-110)
[2023-09-02] MEDS: INSULIN ASPART (NovoLOG) 100 UNIT/ML VIAL SQ SCH ×2 (06:33→13:20)
[2023-09-02] MEDS: GABAPENTIN 300 MG CAP PO SCH ×2 (06:37→15:35)
[2023-09-02] MEDS: MIDODRINE 5 MG TAB PO SCH ×3 (06:37→16:37)
[2023-09-02 07:58] VITALS: RESP 18
[2023-09-02] MEDS: lisinopriL 20 MG TAB PO SCH (08:18)
[2023-09-02] MEDS: POTASSIUM CHLORIDE ER 10 MEQ TAB.ER.PRT PO SCH (08:18)
[2023-09-02] MEDS: CHOLECALCIFEROL 125 MCG (5000 IU) TABLET PO SCH (08:18)
[2023-09-02] MEDS: FUROSEMIDE 20 MG TAB PO SCH (08:18)
[2023-09-02] MEDS: APIXABAN 5 MG TAB PO SCH (08:18)
[2023-09-02] MEDS: METOPROLOL SUCCINATE (ER) 100 MG TAB.ER.24H PO SCH (08:19)
[2023-09-02] MEDS: polyethylene glycoL 3350 17 GM POWD.PACK PO SCH (08:19)
[2023-09-02] MEDS: DULoxetine HCL 20 MG CAPSULE.DR PO SCH (08:19)
--- NOTE | 2023-09-02 09:58 | P.PN ---
Subjective HISTORY OF PRESENT ILLNESS: This is a 73-year-old female with a past medical history significant for coronary artery disease with previous 5 vessel CABG, aortic valve replacement in 2015, atrial fibrillation, hypertension, diabetes, neuropathy, obstructive sleep apnea, hyperlipidemia, TIA, and uterine cancer with total abdominal hysterectomy with radiation and chemotherapy. Patient does not follow with a die repairer forging at [facility]. We have been asked to see the patient in consultation for syncope. Patient examined at the bedside. The patient presented to the hospital secondary to a syncopal episode. The patient was recently discharged from a snf. She reports a significant history of neuropathy and generalized weakness which she attributes to her falls. She currently denies any chest pain or pressure. She denies any shortness of breath. Patient did have positive orthostatic blood pressures starting at 136/95 dropping to 100/43 with standing. * EKG reveals atrial fibrillation with controlled ventricular rate * Chest xray negative for acute process * No previous echocardiogram or cardiac catheterization available in EMR for review 09/02/2023 Patient examined this morning at the bedside. Patient denies chest pain or pressure. She denies shortness of breath. Patient states that she ambulated in the hallway yesterday without dizziness or lightheadedness. No further episodes of syncope. Orthostatic blood pressures obtained this morning revealed supine 164/72. And standing 116/65. Echocardiogram completed revealing ejection fraction 50-55%, moderate to severe pulmonary hypertension, normally functioning bioprosthetic aortic valve without stenosis, mild tricuspid regurgitation PHYSICAL EXAM: VITAL SIGNS: Reviewed. GENERAL: Well-developed in no acute distress. HEENT: Head is normocephalic. Pupils are equal, round. Sclerae anicteric. Mucous membranes of the mouth are moist. Neck supple. No JVD or thyromegaly LUNGS: Respirations even and unlabored. Lungs essentially clear to auscultation bilaterally. HEART: Irregular rate and rhythm. S1 and S2 heard. ABDOMEN: Soft. Nondistended. Nontender. EXTREMITIES: Normal range of motion. No clubbing or cyanosis. Peripheral pulses intact. No lower extremity edema NEUROLOGIC: Awake and alert. Oriented x 3. ASSESSMENT: Syncope Orthostatic hypotension Peripheral neuropathy Coronary artery disease with previous 5 vessel CABG History of bioprosthetic aortic valve replacement, 2014 Uterine cancer with total abdominal hysterectomy with radiation and chemotherapy Paroxysmal atrial fibrillation Hypertension Hyperlipidemia Diabetes Obstructive sleep apnea History of TIA PLAN: Continue current cardiac medications Continue Midodrine Patient is currently stable from a cardiac perspective with no further inpatient recommendations Discharge per medicine We will sign off. Please reconsult if needed. Nurse practitioner note has been reviewed by physician. Signing provider agrees with the documented findings, assessment, and plan of care. Objective - Vital Signs Vital signs: Vital Signs Temp 98.6 F 09/02/23 07:00 Pulse 91 09/02/23 07:00 Resp 18 09/02/23 07:00 BP 164/72 09/02/23 07:00 Pulse Ox 98 09/02/23 07:00 FiO2 Intake & Output 09/01/23 09/02/23 09/02/23 18:59 06:59 18:59 Intake Total 480 Output Total 1100 Balance -620 Intake: Oral 480 Output: Urine 1100 Other: Voiding Method Toilet Toilet Bedside Commode # Voids 1 3 0 # Bowel Movements 0 - Labs CBC & Chem 7: 08/31/23 14:44 08/31/23 14:44 Labs: Abnormal Lab Results - Last 24 Hours (Table) 09/01/23 09/01/23 09/01/23 Range/Units 11:51 17:26 20:26 POC Glucose (mg/dL) 136 H 170 H 153 H (70-110) mg/dL 09/02/23 Range/Units 06:30 POC Glucose (mg/dL) 127 H (70-110) mg/dL
[2023-09-02 11:50] LABS: Glucose,Whole Blood 141 mg/dL (70-110)
--- NOTE | 2023-09-02 15:10 | P.DS ---
Providers Date of admission: 08/31/23 16:40 Expected date of discharge: 09/02/23 Attending physician: Marcello Wyatt Consults: 08/31/23 21:08 Consult Physician Routine Consulting Provider: Kody Nevarez Consult Reason/Comments: orthostatic hypotension Do you want consulting provider notified?: Yes, Notify in am Primary care physician: Marcello Wyatt Hospital Course: HISTORY OF PRESENT ILLNESS: This is a 73-year-old female one of my patient with a previous medical history significant for coronary artery disease status post coronary artery bypass graft for 5 vessels along with aortic valve replacement with 21 mm bioprosthetic valve in 06/05/2015, hypertension and hypertensive cardio vascular disease, proximal is better for abrasion, diabetes mellitus type 2 diabetic neuropathy, hyperlipidemia, ulcerative colitis, TIA, obesity with obstructive sleep apnea and obesity hypoventilation syndrome, thalassemia, anxiety, patient was diagnosed with uterine cancer back in 2018 underwent total abdominal hysterectomy and bilateral sopping oophorectomy by Dr. Mosqueda followed by adjuvant radiation therapy, she finished relation therapy with her vision oncology at [facility] the [facility] and she had a CAT scan that showed no evidence of recurrence of disease back in March 2022, patient eventually developed to have a significant abdominal pain associated with rectal bleed was seen at [facility] was admitted to the hospital after she has had a computed tomography scan of the abdomen and pelvis that didn't show evidence of a large 6.36.3 times a day centimeter lobulated mass in the small bowel mesentery she was seen at that time by hematology oncology was recommended to go for a CT-guided biopsy which was done on 12/23/2022 this is ca me back positive for endometrial primary with ER and MT positive she underwent staging PET scan with Dr. Hernandez in December 2022 and that showed positive uptake in the mass and along with the left hemipelvis with increased uptake in the left iliac lymph nodes, patient was initially referred to Dr. Richards who recommended for the patient to go for chemotherapy as well as immunotherapy, she was started on carboplatin and Taxol and Keytruda on 04/27/2023 and she has finished 5 cycles on 07/22/2023, patient was recently hospitalized at [facility] about a month ago because of progressive weakness of both lower extremities due to significant chemotherapy-induced polyneuropathy, and the patient was sent to [facility] physical therapy rehabilitation, as a matter fact she was seen by my service on Thursday prior to her discharge on Thursday, and she appears to be a bit hypertensive, therefore her medications were adjusted I've decrease her amlodipine to 5 minute gram once every day and lisinopril to 40 mg once every day, and she was given clonidine patch once every day, and the patient was supposed to be discharged home today from [facility] that she was taken home by her daughter, on her way home her knees buckled from under her leg, and she went down without hurting herself, so she ended up coming to the emergency department at [facility] for evaluation patient did appear to have a significant orthostatic hypotension, did receive IV fluid resuscitation, and she had multiple x-rays that did not show evidence of acute fracture, but because of the safety she was admitted to the hospital for evaluation of orthostatic hypertension. 09/01: Patient is sitting up in chair in no apparent distress. She was seen earlier by cardiology, underwent echocardiogram that showed normal ejection fraction, minimal mitral regurgitation, patient also was started on Midodin 2.5 mg orally 3 times every day, after adjusting her current medications, she continues to use a walker for ablation, she is walking few steps here and there, she continued to feel generally weak in both lower extremity is, and she is afraid of falling. Discharge Diagnoses: 1. Orthostatic hypotension. 2. Hypertension and hypertensive cardiovascular disease. 3. Mixed hyperlipidemia. 4. Coronary artery disease status post coronary artery bypass graft as well as PCI. 5. Diabetes mellitus type 2 6. History of uterine cancer status post total abdominal hysterectomy and bilateral sopping go for nephrectomy in 2018 followed by EBRT . With recurrence of her disease in 2022 status post 5 cycles of carboplatin, Taxol, and Keytruda, 7. Recurrent TIA. 8. Atrial fibrillation. 9. Constipation. 10. 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 Plan - Discharge Summary New Discharge Prescriptions: No Action cloNIDine 0.2 MG/24HR PATCH [Catapres-TTS] 1 patch TRANSDERM SA Apixaban [Eliquis] 5 mg PO BID Furosemide [Lasix] 20 mg PO DAILY Nitroglycerin Sl Tabs [Nitrostat] 0.4 mg SL Q5M PRN PRN Reason: Chest Pain Acetaminophen Tab [Tylenol] 1,000 mg PO Q6H PRN PRN Reason: Fever And/ Or Pain Docusate [Colace] 100 mg PO DAILY PRN PRN Reason: Constipation Cyclobenzaprine [Flexeril] 5 mg PO TID PRN PRN Reason: Muscle Spasm Lidocaine 5% Patch [Lidoderm 5% Patch] 1 patch TRANSDERM DAILY PRN PRN Reason: Pain lisinopriL [Zestril] 20 mg PO DAILY DULoxetine HCL [Cymbalta] 20 mg PO DAILY Potassium Chloride ER [K-Dur 10] 10 meq PO BID Metoprolol Succinate (ER) [Toprol XL] 100 mg PO BID Cholecalciferol (Vitamin D3) [Vitamin D3 (125 MCG = 5,000 IU)] 125 mcg PO DAILY Clopidogrel [Plavix] 75 mg PO HS Insulin Detemir (Levemir) [Levemir] 45 unit SQ HS each polyethylene glycoL 3350 [Miralax] 17 gm PO DAILY packet INSULIN ASPART (NovoLOG) [NovoLOG (formulary)] See Protocol SQ ACHS Gabapentin [Neurontin] 300 mg PO TID@0600,1400,2200 amLODIPine [Norvasc] 5 mg PO HS Menthol [Biofreeze] 1 applic TOPICAL Q8H PRN PRN Reason: KNEE PAIN Discharge Medication List Acetaminophen Tab [Tylenol] 1,000 mg PO Q6H PRN 08/11/23 [History] Apixaban [Eliquis] 5 mg PO BID 08/11/23 [History] Cholecalciferol (Vitamin D3) [Vitamin D3 (125 MCG = 5,000 IU)] 125 mcg PO DAILY 08/11/23 [History] Clopidogrel [Plavix] 75 mg PO HS 08/11/23 [History] Cyclobenzaprine [Flexeril] 5 mg PO TID PRN 08/11/23 [History] Docusate [Colace] 100 mg PO DAILY PRN 08/11/23 [History] Furosemide [Lasix] 20 mg PO DAILY 08/11/23 [History] Lidocaine 5% Patch [Lidoderm 5% Patch] 1 patch TRANSDERM DAILY PRN 08/11/23 [History] Metoprolol Succinate (ER) [Toprol XL] 100 mg PO BID 08/11/23 [History] Nitroglycerin Sl Tabs [Nitrostat] 0.4 mg SL Q5M PRN 08/11/23 [History] Potassium Chloride ER [K-Dur 10] 10 meq PO BID 08/11/23 [History] cloNIDine 0.2 MG/24HR PATCH [Catapres-TTS] 1 patch TRANSDERM SA 08/11/23 [History] Insulin Detemir (Levemir) [Levemir] 45 unit SQ HS each 08/14/23 [Rx] polyethylene glycoL 3350 [Miralax] 17 gm PO DAILY packet 08/14/23 [Rx] DULoxetine HCL [Cymbalta] 20 mg PO DAILY 08/31/23 [History] Gabapentin [Neurontin] 300 mg PO TID@0600,1400,2200 08/31/23 [History] INSULIN ASPART (NovoLOG) [NovoLOG (formulary)] See Protocol SQ ACHS 08/31/23 [History] Menthol [Biofreeze] 1 applic TOPICAL Q8H PRN 08/31/23 [History] amLODIPine [Norvasc] 5 mg PO HS 08/31/23 [History] lisinopriL [Zestril] 20 mg PO DAILY 08/31/23 [History] Follow up Appointment(s)/Referral(s): [facility], [NON-STAFF] - Marcello Wyatt MD [Primary Care Provider] - 1-2 days
[2023-09-02 16:09] VITALS: BP 124/65; TEMP 98
[2023-09-02 17:02] VITALS: PULSE 73
[2023-09-05] MEDS ORDERED: cloNIDine 0.2 MG/24HR PATCH TRANSDERM SCH (09:00)
== END 2023-09-02 16:42 | disposition home health service (06) ==
LOC: EC 12:31 → 6NMEDSUR 16:40
PROVIDERS: ADMIT Internal Medicine; ATTEND Internal Medicine
DX: I95.1 Orthostatic hypotension (principal); I48.0 Paroxysmal atrial fibrillation; I25.10 Atherosclerotic heart disease of native coronary artery without angina pectoris; I11.9 Hypertensive heart disease without heart failure; E11.42 Type 2 diabetes mellitus with diabetic polyneuropathy; G47.33 Obstructive sleep apnea (adult) (pediatric); E78.2 Mixed hyperlipidemia; K51.90 Ulcerative colitis, unspecified, without complications; G20.A1 Parkinson's disease without dyskinesia, without mention of fluctuations; D56.9 Thalassemia, unspecified; F41.9 Anxiety disorder, unspecified; K59.00 Constipation, unspecified; Z85.42 Personal history of malignant neoplasm of other parts of uterus; Z86.73 Personal history of transient ischemic attack (TIA), and cerebral infarction without residual deficits; Z90.5 Acquired absence of kidney; Z90.710 Acquired absence of both cervix and uterus; Z92.21 Personal history of antineoplastic chemotherapy; Z92.3 Personal history of irradiation; Z95.3 Presence of xenogenic heart valve; Z95.5 Presence of coronary angioplasty implant and graft; Z79.4 Long term (current) use of insulin; Z79.01 Long term (current) use of anticoagulants; Z79.02 Long term (current) use of antithrombotics/antiplatelets; Z79.899 Other long term (current) drug therapy; Z88.0 Allergy status to penicillin
CPT/HCPCS: 96361 ×3; 96372 ×2; 96374; 99285; 36415; 93005; 93306; 97162; 97166; 80053; 85025; 83036; 72170; 73562; 73610; 71046; G0378 ×3; J2765

== ENCOUNTER 2024-03-10 13:43 | Emergency (ER) | payer MEDICARE ==
[2024-03-10 14:02] VITALS: RESP 18; TEMP 98.6
--- NOTE | 2024-03-10 14:04 | ED ---
General Adult HPI - General Chief complaint: Skin/Abscess/Foreign Body Stated complaint: ALLERGIES Time Seen by Provider: 03/10/24 13:49 Source: patient Mode of arrival: wheelchair Limitations: no limitations - History of Present Illness Initial comments: Dictation was produced using [employer] dictation software. please excuse any grammatical, word or spelling errors. Chief Complaint: 73-year-old female presents with a rash History of Present Illness: Patient 73-year-old female presents emergency department with acute rash since yesterday. Patient has history of cancer she is currently on immunotherapy. Patient denies any changes in her food habits or skin habits. She has not changed her laundry detergent. Yesterday she developed a itchy rash over her back and belly legs and arms. Denies any shortness of breath. No abdominal pain nausea or vomiting. Patient has had hives in the past from unknown cause. Patient thinks that perhaps her rash is secondary to gabapentin that she has been taking. The ROS documented in this emergency department record has been reviewed and confirmed by me. Those systems with pertinent positive or negative responses have been documented in the HPI. All other systems are other negative and/or noncontributory. - Related Data Home Medications Medication Instructions Recorded Confirmed Acetaminophen Tab [Tylenol] 1,000 mg PO Q6H PRN 08/11/23 08/31/23 Apixaban [Eliquis] 5 mg PO BID 08/11/23 08/31/23 Cholecalciferol (Vitamin D3) 125 mcg PO DAILY 08/11/23 08/31/23 [Vitamin D3 (125 MCG = 5,000 IU)] Clopidogrel [Plavix] 75 mg PO HS 08/11/23 08/31/23 Cyclobenzaprine [Flexeril] 5 mg PO TID PRN 08/11/23 08/31/23 Docusate [Colace] 100 mg PO DAILY PRN 08/11/23 08/31/23 Furosemide [Lasix] 20 mg PO DAILY 08/11/23 08/31/23 Lidocaine 5% Patch [Lidoderm 5% 1 patch TRANSDERM DAILY PRN 08/11/23 08/31/23 Patch] Metoprolol Succinate (ER) [Toprol 100 mg PO BID 08/11/23 08/31/23 XL] Nitroglycerin Sl Tabs [Nitrostat] 0.4 mg SL Q5M PRN 08/11/23 08/31/23 Potassium Chloride ER [K-Dur 10] 10 meq PO BID 08/11/23 08/31/23 cloNIDine 0.2 MG/24HR PATCH 1 patch TRANSDERM SA 08/11/23 08/31/23 [Catapres-TTS] DULoxetine HCL [Cymbalta] 20 mg PO DAILY 08/31/23 08/31/23 Gabapentin [Neurontin] 300 mg PO TID@0600,1400,2200 08/31/23 08/31/23 INSULIN ASPART (NovoLOG) [NovoLOG See Protocol SQ ACHS 08/31/23 08/31/23 (formulary)] Menthol [Biofreeze] 1 applic TOPICAL Q8H PRN 08/31/23 08/31/23 amLODIPine [Norvasc] 5 mg PO HS 08/31/23 08/31/23 lisinopriL [Zestril] 20 mg PO DAILY 08/31/23 08/31/23 Previous Rx's Medication Instructions Recorded Insulin Detemir (Levemir) [Levemir] 45 unit SQ HS each 08/14/23 polyethylene glycoL 3350 [Miralax] 17 gm PO DAILY packet 08/14/23 Midodrine [ProAmatine] 2.5 mg PO AC-TID #90 tab 09/02/23 hydrOXYzine HCL [Atarax] 25 mg PO TID PRN #20 tab 03/10/24 Allergies Allergy/AdvReac Type Severity Reaction Status Date / Time diltiazem Allergy Rash/Hives Verified 03/10/24 13:47 gabapentin Allergy Rash/Hives Verified 03/10/24 13:47 hydrochlorothiazide Allergy Rash/Hives Verified 03/10/24 13:47 metformin Allergy Rash/Hives Verified 03/10/24 13:47 ondansetron [From Zofran] Allergy Rash/Hives Verified 03/10/24 13:47 Penicillins Allergy Rash/Hives Verified 03/10/24 13:47 Gpearuv-REJ-OiL Reductase Allergy Rash/Hives Verified 03/10/24 13:47 Inhibitor Review of Systems ROS Statement: Those systems with pertinent positive or pertinent negative responses have been documented in the HPI. ROS Other: All systems not noted in ROS Statement are negative. Past Medical History Past Medical History: Atrial Fibrillation, Coronary Artery Disease (CAD), Cancer, Diabetes Mellitus, Hypertension Additional Past Medical History / Comment(s): Parkisons diagnosis , uterine cancer currently on chemo , "partially atrophied right kidney", vertigo History of Any Multi-Drug Resistant Organisms: None Reported Past Surgical History: Section, Cholecystectomy, Heart Catheterization, Heart Catheterization With Stent, Hysterectomy Additional Past Surgical History / Comment(s): Aortic valve, Past Anesthesia/Blood Transfusion Reactions: No Reported Reaction Date of Last Stent Placement:: 2014 Past Psychological History: No Psychological Hx Reported Smoking Status: Never smoker Past Alcohol Use History: None Reported Past Drug Use History: None Reported General Exam - General Exam Comments Initial Comments: PHYSICAL EXAM: General Impression: Alert and oriented x3, not in acute distress HEENT: Normocephalic atraumatic, extra-ocular movements intact, pupils equal and reactive to light bilaterally, mucous membranes moist. Cardiovascular: Heart regular rate and rhythm Chest: Able to complete full sentences, no retractions, no tachypnea Abdomen: abdomen soft, non-tender, non-distended, no organomegaly Musculoskeletal: Pulses present and equal in all extremities, no peripheral edema Motor: no focal deficits noted Neurological: CN II-XII grossly intact, no focal motor or sensory deficits noted Skin: I diffuse urticarial rash to extremities, back Psych: Normal affect and mood Limitations: no limitations Course Vital Signs 03/10/24 13:44 Temperature 98.6 F Pulse Rate 75 Respiratory 18 Rate Blood Pressure 139/75 O2 Sat by Pulse 98 Oximetry Medical Decision Making - Medical Decision Making Was pt. sent in by a medical professional or institution (, PA, FIRE MANAGER, urgent care, hospital, or penitentiary...) When possible be specific @ -No Did you speak to anyone other than the patient for history (EMS, parent, family, police, friend...)? What history was obtained from this source @ -No Did you review nursing and triage notes (agree or disagree)? Why? @ -I reviewed and agree with nursing and triage notes Were old charts reviewed (outside hosp., previous admission, EMS record, old EKG, old radiological studies, urgent care reports/EKG's, penitentiary records)? Report findings @ -No old charts were reviewed Differential Diagnosis (chest pain, altered mental status, abdominal pain women, abdominal pain men, vaginal bleeding, musculoskeletal, weakness, fever, dyspnea, syncope, headache, dizziness, GI bleed, back pain, seizure, CVA, palpatations, mental health)? @ -Zach Sergey syndrome, erythema toxicum, MRSA EKG interpreted by me (3pts min.). @ -None done X-rays interpreted by me (1pt min.). @ -None done CT interpreted by me (1pt min.). @ -None done U/S interpreted by me (1pt. min.). @ -None done What testing was considered but not performed or refused? (CT, X-rays, U/S, labs)? Why? @ -None What meds were considered but not given or refused? Why? @ -None Did you discuss the management of the patient with other professionals (professionals i.e. , PA, FIRE MANAGER, lab, RT, psych nurse, mental health social worker, occupational health coordinator, teacher, correction officer, case assembler)? Give summary @ -No Was smoking cessation discussed for >3mins.? @ -No Was critical care preformed (if so, how long)? @ -No Were there social determinants of health that impacted care today? How? (H omelessness, low income, unemployed, alcoholism, drug addiction, transportation, low edu. Level, literacy, decrease access to med. care, correction, rehab)? @ -No Was there de-escalation of care discussed even if they declined (Discuss DNR or withdrawal of care, Hospice)? DNR status @ -No What co-morbidities impacted this encounter? (DM, HTN, Smoking, COPD, CAD, Cancer, CVA, ARF, Chemo, Hep., AIDS, mental health diagnosis, sleep apnea, morbid obesity)? @ -None Was patient admitted / discharged? Hospital course, mention meds given and route, prescriptions, significant lab abnormalities, going to OR and other pertinent info. @ -73-year-old female with urticaria. Vital signs stable. Physical examination shows urticarial rash. Patient clinical presentation is not consistent with anaphylaxis. Patient given antihistamine medications. Patient advised follow-up with her oncologist. Undiagnosed new problem with uncertain prognosis? @ -No Drug Therapy requiring intensive monitoring for toxicity (Heparin, Nitro, Insulin, Cardizem)? @ -No Were any procedures done? @ -No Diagnosis/symptom? Acute, or Chronic, or Acute on Chronic? Uncomplicated (without systemic symptoms) or Complicated (systemic symptoms)? @ -Urticaria Side effects of treatment? @ -No Exacerbation, Progression, or Severe Exacerbation? @ -No Poses a threat to life or bodily function? How? (Chest pain, [place], [place], pneumonia, PE, COPD, DKA, ARF, appy, cholecystitis, CVA, Diverticulitis, Homicidal, Suicidal, threat to staff... and all critical care pts) @ -No Disposition Clinical Impression: Urticaria Disposition: HOME SELF-CARE Condition: Fair Instructions (If sedation given, give patient instructions): Urticaria (ED) Prescriptions: hydrOXYzine HCL [Atarax] 25 mg PO TID PRN #20 tab PRN Reason: hives Is patient prescribed a controlled substance at d/c from ED?: No Referrals: Marcello Wyatt MD [Primary Care Provider] - 1-2 days Time of Disposition: 14:04
[2024-03-10] MEDS: hydrOXYzine HCL 25 MG TAB PO STA (14:35)
[2024-03-10 14:53] VITALS: BP 115/64; PULSE 80
== END 2024-03-10 14:48 | disposition home or self-care (01) ==
LOC: EC 13:43
DX: L50.9 Urticaria, unspecified (principal); Z88.0 Allergy status to penicillin; Z88.8 Allergy status to other drugs, medicaments and biological substances; Z91.048 Other nonmedicinal substance allergy status; Z90.49 Acquired absence of other specified parts of digestive tract
CPT/HCPCS: 99283

== ENCOUNTER 2024-03-10 18:32 | Emergency (ER) | payer MEDICARE ==
[2024-03-10 18:49] VITALS: TEMP 98.6
--- NOTE | 2024-03-10 21:08 | ED ---
General Adult HPI - General Chief complaint: Recheck/Abnormal Lab/Rx Stated complaint: Rash Time Seen by Provider: 03/10/24 19:47 Source: patient, RN notes reviewed Mode of arrival: wheelchair Limitations: no limitations - History of Present Illness Initial comments: 73-year-old female presents to the emergency department for evaluation of allergic reaction. Patient was seen earlier today for the same complaint. Patient states that she had hives on her arms and under her breast. She was started on hydroxyzine. She states that this improves the itching and made her sleepy. She states that she took her gabapentin again and noticed burning all over her skin. She states that she has had this feeling with the medication in the past. Patient is concerned with continuing the medication but was told not to stop it cold turkey. She takes 300mg of gabapentin 4 times daily. - Related Data Home Medications Medication Instructions Recorded Confirmed Acetaminophen Tab [Tylenol] 1,000 mg PO Q6H PRN 08/11/23 08/31/23 Apixaban [Eliquis] 5 mg PO BID 08/11/23 08/31/23 Cholecalciferol (Vitamin D3) 125 mcg PO DAILY 08/11/23 08/31/23 [Vitamin D3 (125 MCG = 5,000 IU)] Clopidogrel [Plavix] 75 mg PO HS 08/11/23 08/31/23 Cyclobenzaprine [Flexeril] 5 mg PO TID PRN 08/11/23 08/31/23 Docusate [Colace] 100 mg PO DAILY PRN 08/11/23 08/31/23 Furosemide [Lasix] 20 mg PO DAILY 08/11/23 08/31/23 Lidocaine 5% Patch [Lidoderm 5% 1 patch TRANSDERM DAILY PRN 08/11/23 08/31/23 Patch] Metoprolol Succinate (ER) [Toprol 100 mg PO BID 08/11/23 08/31/23 XL] Nitroglycerin Sl Tabs [Nitrostat] 0.4 mg SL Q5M PRN 08/11/23 08/31/23 Potassium Chloride ER [K-Dur 10] 10 meq PO BID 08/11/23 08/31/23 cloNIDine 0.2 MG/24HR PATCH 1 patch TRANSDERM SA 08/11/23 08/31/23 [Catapres-TTS] DULoxetine HCL [Cymbalta] 20 mg PO DAILY 08/31/23 08/31/23 Gabapentin [Neurontin] 300 mg PO TID@0600,1400,2200 08/31/23 08/31/23 INSULIN ASPART (NovoLOG) [NovoLOG See Protocol SQ ACHS 08/31/23 08/31/23 (formulary)] Menthol [Biofreeze] 1 applic TOPICAL Q8H PRN 08/31/23 08/31/23 amLODIPine [Norvasc] 5 mg PO HS 08/31/23 08/31/23 lisinopriL [Zestril] 20 mg PO DAILY 08/31/23 08/31/23 Previous Rx's Medication Instructions Recorded Insulin Detemir (Levemir) [Levemir] 45 unit SQ HS each 08/14/23 polyethylene glycoL 3350 [Miralax] 17 gm PO DAILY packet 08/14/23 Midodrine [ProAmatine] 2.5 mg PO AC-TID #90 tab 09/02/23 hydrOXYzine HCL [Atarax] 25 mg PO TID PRN #20 tab 03/10/24 Allergies Allergy/AdvReac Type Severity Reaction Status Date / Time diltiazem Allergy Rash/Hives Verified 03/10/24 13:47 gabapentin Allergy Rash/Hives Verified 03/10/24 13:47 hydrochlorothiazide Allergy Rash/Hives Verified 03/10/24 13:47 metformin Allergy Rash/Hives Verified 03/10/24 13:47 ondansetron [From Zofran] Allergy Rash/Hives Verified 03/10/24 13:47 Penicillins Allergy Rash/Hives Verified 03/10/24 13:47 Capxazk-PSC-ZnK Reductase Allergy Rash/Hives Verified 03/10/24 13:47 Inhibitor Review of Systems ROS Statement: Those systems with pertinent positive or pertinent negative responses have been documented in the HPI. ROS Other: All systems not noted in ROS Statement are negative. Past Medical History Past Medical History: Atrial Fibrillation, Coronary Artery Disease (CAD), Cancer, Diabetes Mellitus, Hypertension Additional Past Medical History / Comment(s): Parkisons diagnosis , uterine cancer currently on chemo , "partially atrophied right kidney", vertigo History of Any Multi-Drug Resistant Organisms: None Reported Past Surgical History: Section, Cholecystectomy, Heart Catheterization, Heart Catheterization With Stent, Hysterectomy Additional Past Surgical History / Comment(s): Aortic valve, Past Anesthesia/Blood Transfusion Reactions: No Reported Reaction Date of Last Stent Placement:: 2014 Past Psychological History: No Psychological Hx Reported Smoking Status: Never smoker Past Alcohol Use History: None Reported Past Drug Use History: None Reported General Exam Limitations: no limitations General appearance: alert, in no apparent distress Head exam: Present: atraumatic, normocephalic, normal inspection Eye exam: Present: normal appearance, PERRL, EOMI. Absent: scleral icterus, conjunctival injection, periorbital swelling ENT exam: Present: normal exam, mucous membranes moist Respiratory exam: Present: normal lung sounds bilaterally. Absent: respiratory distress, wheezes, rales, rhonchi, stridor Cardiovascular Exam: Present: regular rate, normal rhythm, normal heart sounds. Absent: systolic murmur, diastolic murmur, rubs, gallop, clicks Extremities exam: Present: normal inspection, full ROM, normal capillary refill. Absent: tenderness, pedal edema, joint swelling, calf tenderness Back exam: Present: normal inspection Neurological exam: Present: alert, oriented X3 Psychiatric exam: Present: normal affect, normal mood Skin exam: Present: warm, dry, intact, urticaria (urticaria to bilateral upper extremities). Absent: normal color Course Vital Signs 03/10/24 03/10/24 18:36 21:38 Temperature 98.6 F Pulse Rate 100 71 Respiratory 18 16 Rate Blood Pressure 183/91 142/83 O2 Sat by Pulse 99 100 Oximetry Medical Decision Making - Medical Decision Making Was pt. sent in by a medical professional or institution (, PA, ZMT OPERATOR, urgent care, hospital, or long-term...) When possible be specific @ -No Did you speak to anyone other than the patient for history (EMS, parent, family, police, friend...)? What history was obtained from this source @ -No Did you review nursing and triage notes (agree or disagree)? Why? @ -I reviewed and agree with nursing and triage notes Were old charts reviewed (outside hosp., previous admission, EMS record, old EKG, old radiological studies, urgent care reports/EKG's, long-term records)? Report findings @ -No old charts were reviewed Differential Diagnosis (chest pain, altered mental status, abdominal pain women, abdominal pain men, vaginal bleeding, weakness, fever, dyspnea, syncope, headache, dizziness, GI bleed, back pain, seizure, CVA, palpatations, mental health, musculoskeletal)? @ -allergic reaction, urticaria, anaphylaxis, this list is not all inclusive EKG interpreted by me (3pts min.). @ -None X-rays interpreted by me (1pt min.). @ -None done CT interpreted by me (1pt min.). @ -None done U/S interpreted by me (1pt. min.). @ -None done What testing was considered but not performed or refused? (CT, X-rays, U/S, labs)? Why? @ -None What meds were considered but not given or refused? Why? @ -None Did you discuss the management of the patient with other professionals (professionals i.e. , PA, ZMT OPERATOR, lab, RT, psych nurse, social welfare research worker, bath attendant, teacher, weapons officer naval activity, manager rn case)? Give summary @ -No Was smoking cessation discussed for >3mins.? @ -No Was critical care preformed (if so, how long)? @ -No Were there social determinants of health that impacted care today? How? (Homelessness, low income, unemployed, alcoholism, drug addiction, transportation, low edu. Level, literacy, decrease access to med. care, long term, rehab)? @ -No Was there de-escalation of care discussed even if they declined (Discuss DNR or withdrawal of care, Hospice)? DNR status @ -No What co-morbidities impacted this encounter? (DM, HTN, Smoking, COPD, CAD, Cancer, CVA, ARF, Chemo, Hep., AIDS, mental health diagnosis, sleep apnea, morbid obesity)? @ -None Was patient admitted / discharged? Hospital course, mention meds given and route, prescriptions, significant lab abnormalities, going to OR and other pertinent info. @ -Discharged. Patient presented to the emergency department for evaluation of burning to skin after taking her gabapentin. She does report feeling this in the past. She states that she was seen earlier and given hydroxyzine which improved her itching and rash. Patient would like advice on stopping the medication. Advised to not stop the medication abruptly. Advised her to see her primary care provider for advice on weaning off the medication. Patient will be discharged home. Patient understanding and agreeable with plan. Patient stable at time of discharge. Case discussed with Dr. Ivan Undiagnosed new problem with uncertain prognosis? @ -No Drug Therapy requiring intensive monitoring for toxicity (Heparin, Nitro, Insulin, Cardizem)? @ -No Were any procedures done? @ -No Diagnosis/symptom? @ -Rash, allergic reaction Acute, or Chronic, or Acute on Chronic? @ -acute Uncomplicated (without systemic symptoms) or Complicated (systemic symptoms)? @ -uncomplicated Side effects of treatment? @ -No Exacerbation, Progression, or Severe Exacerbation? @ -No Poses a threat to life or bodily function? How? (Chest pain, USA, CT, pneumonia, PE, COPD, DKA, ARF, appy, cholecystitis, CVA, Diverticulitis, Homicidal, Suicidal, threat to staff... and all critical care pts) @ -No Disposition Clinical Impression: Allergic reaction Disposition: HOME SELF-CARE Condition: Stable Additional Instructions: Please follow up with your primary care provider. Return to the emergency department for new or worsening symptoms. Is patient prescribed a controlled substance at d/c from ED?: No Referrals: Marcello Wyatt MD [Primary Care Provider] - 1-2 days
[2024-03-10 22:36] VITALS: BP 142/83; PULSE 71; RESP 16
== END 2024-03-10 21:38 | disposition home or self-care (01) ==
LOC: EC 18:32
DX: R21 Rash and other nonspecific skin eruption (principal); T43.595A Adverse effect of other antipsychotics and neuroleptics, initial encounter; Z88.0 Allergy status to penicillin; Z88.8 Allergy status to other drugs, medicaments and biological substances; Z88.1 Allergy status to other antibiotic agents
CPT/HCPCS: 99283

== ENCOUNTER → 2024-04-19 | Outpatient (CLI) | payer MEDICARE ==
[2024-04-19 14:39] LABS: African American GFR (CKD) >90 (>60 ml/min/1.73 sqM); Blood Urea Nitrogen 20 mg/dL (7-17); Non-African American GFR(CKD) >90 (>60 ml/min/1.73 sqM)
--- NOTE | 2024-04-19 15:47 | CT ---
EXAMINATION TYPE: CT ChestAbdPelvis w con CT DLP: 1863 mGycm, Automated exposure control for dose reduction was used. DATE OF EXAM: 04/19/2024 3:14 PM COMPARISON: 01/19/2024, 01/02/2023. CLINICAL INDICATION:Female, 73 years old with history of C55 MALIGNANT NEOPLASM OF UTERUS, PART UNSPE CIFIED; [facility], f/u uterine ca Technique: CT ChestAbdPelvis w con; Multiple axial images were obtained. Two-dimensional coronal and sagittal reconstructions were obtained. Contrast used:100 mL of Isovue 300 with IV Contrast, Oral contrast used: with Oral Contrast Findings: CHEST: LUNGS/ PLEURA: No focal consolidation, pneumothorax or pleural effusion. AIRWAY: Patent and unremarkable. HEART: Aortic valve repair changes. MEDIASTINUM: No gross evidence of adenopathy. VASCULATURE: No aortic aneurysm. MUSCULOSKELETAL: No acute osseous abnormalities. SOFT TISSUES/LYMPH NODES: Unremarkable. LOWER NECK: No significant findings. ABDOMEN: ABDOMEN LIVER: Wedge shape peripheral irregular enhancement within the right hepatic lobe series 3 image 54 a nd another area more centrally anteriorly measuring 12 mm series 3 image 51. GALLBLADDER AND BILE DUCTS: Unremarkable. PANCREAS: Unremarkable. SPLEEN: Unremarkable. ADRENAL GLANDS: Unremarkable. KIDNEYS AND URETERS: No evidence of hydronephrosis or renal calculus. The ureters are unremarkable. PELVIS BLADDER: Unremarkable REPRODUCTIVE: Unremarkable. ABDOMEN & PELVIS STOMACH AND BOWEL: No evidence of bowel obstruction. PERITONEUM: No evidence of pneumoperitoneum or free fluid. Omental mass is decreased from 01/02/2023 a nd measuring 21 x 19 mm. This is similar to most recent prior given differences in technique VASCULATURE: No evidence of aortic aneurysm. MUSCULOSKELETAL: No acute osseous abnormalities LYMPH NODES: No gross evidence for lymphadenopathy. SOFT TISSUE/ABDOMINAL WALL: Ventral wall hernia containing fat. IMPRESSION: 1. soft tissue mass in the omentum measuring up to 21 x 19 mm not significantly changed from prior g iven differences in technique 01/19/2024 and decreased in size from 01/02/2023. mass 2. 2 areas of arterial enhancement within the liver further evaluation MRI liver mass protocol recom mended. 1 may represent something on the other is indeterminate.
== END | disposition home or self-care (01) ==
LOC: RADCTMAIN 13:20
PROVIDERS: ATTEND Internal Medicine Hematology & Oncology
DX: C55 Malignant neoplasm of uterus, part unspecified (principal)
CPT/HCPCS: 82565; 84520; 71260; 74177; 36415; Q9967

== ENCOUNTER → 2024-07-27 | Outpatient (CLI) | payer MEDICARE ==
[2024-07-27 15:27] LABS: African American GFR (CKD) >90 (>60 ml/min/1.73 sqM); Blood Urea Nitrogen 15 mg/dL (7-17); Non-African American GFR(CKD) >90 (>60 ml/min/1.73 sqM)
--- NOTE | 2024-07-28 11:57 | CT ---
EXAMINATION TYPE: CT ChestAbdPelvis w con CT DLP: 1404.5 mGycm, Automated exposure control for dose reduction was used. DATE OF EXAM: 07/27/2024 5:18 PM COMPARISON: 04/19/2024 CLINICAL INDICATION: Female, 74 years old with history of HYPERTENSION, NEOPLASM OF UTERUS, KIDNEY DI S C55 I48.91; [facility], f/u uterine ca Technique: CT ChestAbdPelvis w con; Multiple axial images were obtained. Two-dimensional coronal and sagittal reconstructions were obtained. Contrast used:100 mL of Isovue 300 with IV Contrast, Oral contrast used: with Oral Contrast Findings: CHEST: LUNGS/ PLEURA: No focal consolidation, pneumothorax or pleural effusion. AIRWAY: Patent and unremarkable. HEART: Aortic valve repair changes. MEDIASTINUM: No gross evidence of adenopathy. VASCULATURE: No aortic aneurysm. MUSCULOSKELETAL: No acute osseous abnormalities. SOFT TISSUES/LYMPH NODES: Unremarkable. LOWER NECK: No significant findings. ABDOMEN: ABDOMEN LIVER: Wedge shape peripheral irregular enhancement within the right hepatic lobe is that significant ly changed as well as another area more centrally anteriorly measuring 12 mm. GALLBLADDER AND BILE DUCTS: Unremarkable. PANCREAS: Unremarkable. SPLEEN: Unremarkable. ADRENAL GLANDS: Unremarkable. KIDNEYS AND URETERS: No evidence of hydronephrosis or renal calculus. The ureters are unremarkable. PELVIS BLADDER: Unremarkable REPRODUCTIVE: Unremarkable. ABDOMEN & PELVIS STOMACH AND BOWEL: No evidence of bowel obstruction. PERITONEUM: No evidence of pneumoperitoneum or free fluid. Omental mass is decreased from 01/02/2023 a nd measuring 26 x 13 mm. This is similar to most recent prior given differences in technique VASCULATURE: No evidence of aortic aneurysm. High-grade stenosis of the right, iliac artery with poss ible occlusion. Series 3 image 87. 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 MUSCULOSKELETAL: No acute osseous abnormalities. Moderate disc degeneration changes are present throu ghout the thoracolumbar spine. LYMPH NODES: No gross evidence for lymphadenopathy. SOFT TISSUE/ABDOMINAL WALL: Ventral wall hernia containing fat. IMPRESSION: 1. Stable omental mass not significantly changed from prior given differences in technique. No new o r enlarging lymph nodes. 2. Stable areas of arterial enhancement within the liver. 3. High-grade stenosis of the right, iliac artery with occlusion. Findings stable from prior 4. 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 [facility] Manueltation: RW3, 07/28/2024 11:54 AM
== END ==
LOC: RADCTMAIN 13:58
PROVIDERS: ATTEND Internal Medicine Hematology & Oncology
CPT/HCPCS: 36415; 71260; 74177; 82565; 84520

== ENCOUNTER 2025-03-17 09:14 | Observation (INO) | payer MEDICARE ==
--- NOTE | 2025-03-17 09:49 | ED ---
General Adult HPI - General Chief complaint: Chest Pain Stated complaint: chest pain Time Seen by Provider: 03/17/25 09:21 Source: patient, RN notes reviewed Mode of arrival: ambulatory Limitations: no limitations - History of Present Illness Initial comments: Patient is a 74-year-old female present emergency department with concern with chest discomfort. Onset of symptoms was yesterday evening around 12 or 1 AM that resolved with nitroglycerin. Symptoms returned this morning and patient came to the emergency department. Discomfort is 5 or 6/10. Discomfort feels like tightness. Patient does have associated nausea and dyspnea. No diaphoresis. Symptoms are similar to previous cardiac disease. Patient has had previous CABG. - Related Data Home Medications Medication Instructions Recorded Confirmed Acetaminophen Tab [Tylenol] 1,000 mg PO Q6H PRN 08/11/23 08/31/23 Apixaban [Eliquis] 5 mg PO BID 08/11/23 08/31/23 Cholecalciferol (Vitamin D3) 125 mcg PO DAILY 08/11/23 08/31/23 [Vitamin D3 (125 MCG = 5,000 IU)] Clopidogrel [Plavix] 75 mg PO HS 08/11/23 08/31/23 Cyclobenzaprine [Flexeril] 5 mg PO TID PRN 08/11/23 08/31/23 Docusate [Colace] 100 mg PO DAILY PRN 08/11/23 08/31/23 Furosemide [Lasix] 20 mg PO DAILY 08/11/23 08/31/23 Lidocaine 5% Patch [Lidoderm 5% 1 patch TRANSDERM DAILY PRN 08/11/23 08/31/23 Patch] Metoprolol Succinate (ER) [Toprol 100 mg PO BID 08/11/23 08/31/23 XL] Nitroglycerin Sl Tabs [Nitrostat] 0.4 mg SL Q5M PRN 08/11/23 08/31/23 Potassium Chloride ER [K-Dur 10] 10 meq PO BID 08/11/23 08/31/23 cloNIDine 0.2 MG/24HR PATCH 1 patch TRANSDERM SA 08/11/23 08/31/23 [Catapres-TTS] DULoxetine HCL [Cymbalta] 20 mg PO DAILY 08/31/23 08/31/23 Gabapentin [Neurontin] 300 mg PO TID@0600,1400,2200 08/31/23 08/31/23 INSULIN ASPART (NovoLOG) [NovoLOG See Protocol SQ ACHS 08/31/23 08/31/23 (formulary)] Menthol [Biofreeze] 1 applic TOPICAL Q8H PRN 08/31/23 08/31/23 amLODIPine [Norvasc] 5 mg PO HS 08/31/23 08/31/23 lisinopriL [Zestril] 20 mg PO DAILY 08/31/23 08/31/23 Previous Rx's Medication Instructions Recorded Insulin Detemir (Levemir) [Levemir] 45 unit SQ HS each 08/14/23 polyethylene glycoL 3350 [Miralax] 17 gm PO DAILY packet 08/14/23 Midodrine [ProAmatine] 2.5 mg PO AC-TID #90 tab 09/02/23 hydrOXYzine HCL [Atarax] 25 mg PO TID PRN #20 tab 03/10/24 Allergies Allergy/AdvReac Type Severity Reaction Status Date / Time diltiazem Allergy Rash/Hives Verified 03/17/25 09:29 gabapentin Allergy Rash/Hives Verified 03/17/25 09:29 hydrochlorothiazide Allergy Rash/Hives Verified 03/17/25 09:29 metformin Allergy Rash/Hives Verified 03/17/25 09:29 ondansetron [From Zofran] Allergy Rash/Hives Verified 03/17/25 09:29 Penicillins Allergy Rash/Hives Verified 03/17/25 09:29 [id number] Reductase Allergy Rash/Hives Verified 03/17/25 09:29 Inhibitor Review of Systems ROS Statement: Those systems with pertinent positive or pertinent negative responses have been documented in the HPI. ROS Other: All systems not noted in ROS Statement are negative. Constitutional: Denies: fever Eyes: Denies: eye pain ENT: Denies: ear pain Respiratory: Reports: as per HPI Cardiovascular: Reports: as per HPI, chest pain Gastrointestinal: Denies: abdominal pain Musculoskeletal: Denies: back pain Past Medical History Past Medical History: Atrial Fibrillation, Coronary Artery Disease (CAD), Cancer, Diabetes Mellitus, Hypertension Additional Past Medical History / Comment(s): Parkisons diagnosis , uterine cancer currently on chemo , "partially atrophied right kidney", vertigo History of Any Multi-Drug Resistant Organisms: None Reported Past Surgical History: Section, Cholecystectomy, Heart Catheterization, Heart Catheterization With Stent, Hysterectomy Additional Past Surgical History / Comment(s): Aortic valve, uterine cancer, Past Anesthesia/Blood Transfusion Reactions: No Reported Reaction Date of Last Stent Placement:: 2014 Past Psychological History: No Psychological Hx Reported Smoking Status: Never smoker Past Alcohol Use History: None Reported Past Drug Use History: None Reported General Exam Limitations: no limitations General appearance: alert, in no apparent distress Head exam: Present: normocephalic Eye exam: Present: normal appearance Neck exam: Present: normal inspection Respiratory exam: Present: normal lung sounds bilaterally. Absent: chest wall tenderness Cardiovascular Exam: Present: regular rate, irregular rhythm Expanded Peripheral pulses: 2+: Radial (R), Radial (L), Dorsalis Pedis (R), Dorsalis Pedis (L) GI/Abdominal exam: Present: soft. Absent: tenderness Extremities exam: Present: normal inspection. Absent: pedal edema, calf tenderness Neurological exam: Present: alert Psychiatric exam: Present: normal affect, normal mood Skin exam: Present: normal color Course Vital Signs 03/17/25 03/17/25 03/17/25 09:25 10:00 11:02 Temperature 97.8 F 98.3 F 98.8 F Pulse Rate 97 85 92 Respiratory 18 18 18 Rate Blood Pressure 182/88 149/75 147/81 O2 Sat by Pulse 98 96 98 Oximetry EKG Findings - EKG Results: EKG: interpreted by ERMD, normal axis, normal QRS, normal ST/T EKG shows: atrial fibrillation Medical Decision Making - Medical Decision Making Was pt. sent in by a medical professional or institution (, PA, MOISTURE TESTER, urgent care, hospital, or long term...) When possible be specific @ -No Did you speak to anyone other than the patient for history (EMS, parent, family, police, friend...)? What history was obtained from this source @ -No Did you review nursing and triage notes (agree or disagree)? Why? @ -I reviewed and agree with nursing and triage notes Were old charts reviewed (outside hosp., previous admission, EMS record, old EKG, old radiological studies, urgent care reports/EKG's, long term records)? Report findings @ -No old charts were reviewed Differential Diagnosis (chest pain, altered mental status, abdominal pain women, abdominal pain men, vaginal bleeding, weakness, fever, dyspnea, syncope, headache, dizziness, GI bleed, back pain, seizure, CVA, palpatations, mental health, musculoskeletal)? @ -Differential Chest Pain: Stable Angina, Unstable Angina, STEMI, NSTEMI Aortic Dissection, Pneumothorax, Musculoskeletal, Esophageal Spasm GERD, Cholecystitis, Pancreatitis, Zoster, this is not meant to be an all-inclusive list. EKG interpreted by me (3pts min.). @ -As above X-rays interpreted by me (1pt min.). @ -Chest x-ray interpreted by myself does not reveal acute abnormality CT interpreted by me (1pt min.). @ -None done U/S interpreted by me (1pt. min.). @ -None done What testing was considered but not performed or refused? (CT, X-rays, U/S, labs)? Why? @ -None What meds were considered but not given or refused? Why? @ -None Did you discuss the management of the patient with other professionals (professionals i.e. , PA, MOISTURE TESTER, lab, RT, psych nurse, social studies teacher, proof press operator, teacher, real estate loan officer, rehabilitation case coordinator)? Give summary @ -Case was discussed with Dr. Ramsay who will admit covering Dr. Garcia Was smoking cessation discussed for >3mins.? @ -No Was critical care preformed (if so, how long)? @ -No Were there social determinants of health that impacted care today? How? (Homelessness, low income, unemployed, alcoholism, drug addiction, transportation, low edu. Level, literacy, decrease access to med. care, skilled nursing, rehab)? @ -No Was there de-escalation of care discussed even if they declined (Discuss DNR or withdrawal of care, Hospice)? DNR status @ -No What co-morbidities impacted this encounter? (DM, HTN, Smoking, COPD, CAD, Cancer, CVA, ARF, Chemo, Hep., AIDS, mental health diagnosis, sleep apnea, morbid obesity)? @ -History of A-fib Was patient admitted / discharged? Hospital course, mention meds given and r oute, prescriptions, significant lab abnormalities, going to OR and other pertinent info. @ -Patient presents with chest discomfort. Initial troponin negative. Patient reevaluated and still having some discomfort. Patient will be admitted with cardiac consult. Patient and family updated. Admission orders written. Undiagnosed new problem with uncertain prognosis? @ -No Drug Therapy requiring intensive monitoring for toxicity (Heparin, Nitro, Insulin, Cardizem)? @ -No Were any procedures done? @ -No Diagnosis/symptom? @ -Chest pain Acute, or Chronic, or Acute on Chronic? @ -Acute Uncomplicated (without systemic symptoms) or Complicated (systemic symptoms)? @ -Default Side effects of treatment? @ -No Exacerbation, Progression, or Severe Exacerbation? @ -No Poses a threat to life or bodily function? How? (Chest pain, [place], [place], pneumonia, PE, COPD, DKA, ARF, appy, cholecystitis, CVA, Diverticulitis, Homicidal, Suicidal, threat to staff... and all critical care pts) @ -Threat to cardiac function - Lab Data Result diagrams: 03/17/25 09:52 03/17/25 09:52 Lab Results 03/17/25 03/17/25 03/17/25 Range/Units 09:52 09:52 09:52 WBC 9.64 (4.50-10.00) 10*3/uL RBC 5.33 H (4.10-5.20) 10*6/uL Hgb 13.8 (12.0-15.0) g/dL Hct 41.1 (37.2-46.3) % MCV 77.1 L (80.0-97.0) fL MCH 25.9 L (27.0-32.0) pg MCHC 33.6 (32.0-37.0) g/dL Plt Count 298 (140-440) 10*3/uL MPV 9.7 (9.5-12.2) fL Immature Gran % (Auto) 0.5 % Neutrophils % 74.0 % Lymphocytes % 12.1 % Monocytes % 10.2 % Eosinophils % 2.7 % Basophils % 0.5 % Immature Gran # 0.05 H (0.00-0.04) 10*3/uL Neutrophils # 7.13 (1.80-7.70) 10*3/uL Lymphocytes # 1.17 (0.90-5.00) 10*3/uL Monocytes # 0.98 (0.20-1.00) 10*3/uL Eosinophils # 0.26 (0.04-0.35) 10*3/uL Basophils # 0.05 (0.00-0.10) 10*3/uL PT 10.6 (10.0-12.5) sec INR 1.0 (<1.2) APTT 32.8 H (22.0-30.0) sec Sodium 138 (137-145) mmol/L Potassium 4.0 (3.5-5.1) mmol/L Chloride 102 (98-107) mmol/L Carbon Dioxide 23 (22-30) mmol/L Anion Gap 13 mmol/L BUN 15 (7-17) mg/dL Creatinine 0.66 (0.52-1.04) mg/dL Est GFR (CKD-EPI)AfAm >90 (>60 ml/min/1.73 sqM) Est GFR (CKD-EPI)NonAf 86 (>60 ml/min/1.73 sqM) Glucose 181 H (74-99) mg/dL Calcium 9.7 (8.4-10.2) mg/dL Magnesium 1.8 (1.6-2.3) mg/dL Total Bilirubin 0.5 (0.2-1.3) mg/dL AST 19 (14-36) U/L ALT 18 (4-34) U/L Alkaline Phosphatase 114 (38-126) U/L Troponin I (0.000-0.034) ng/mL Total Protein 8.0 (6.3-8.2) g/dL Albumin 4.5 (3.5-5.0) g/dL /04/05 Range/Units 09:52 WBC (4.50-10.00) 10*3/uL RBC (4.10-5.20) 10*6/uL Hgb (12.0-15.0) g/dL Hct (37.2-46.3) % MCV (80.0-97.0) fL MCH (27.0-32.0) pg MCHC (32.0-37.0) g/dL Plt Count (140-440) 10*3/uL MPV (9.5-12.2) fL Immature Gran % (Auto) % Neutrophils % % Lymphocytes % % Monocytes % % Eosinophils % % Basophils % % Immature Gran # (0.00-0.04) 10*3/uL Neutrophils # (1.80-7.70) 10*3/uL Lymphocytes # (0.90-5.00) 10*3/uL Monocytes # (0.20-1.00) 10*3/uL Eosinophils # (0.04-0.35) 10*3/uL Basophils # (0.00-0.10) 10*3/uL PT (10.0-12.5) sec INR (<1.2) APTT (22.0-30.0) sec Sodium (137-145) mmol/L Potassium (3.5-5.1) mmol/L Chloride (98-107) mmol/L Carbon Dioxide (22-30) mmol/L Anion Gap mmol/L BUN (7-17) mg/dL Creatinine (0.52-1.04) mg/dL Est GFR (CKD-EPI)AfAm (>60 ml/min/1.73 sqM) Est GFR (CKD-EPI)NonAf (>60 ml/min/1.73 sqM) Glucose (74-99) mg/dL Calcium (8.4-10.2) mg/dL Magnesium (1.6-2.3) mg/dL Total Bilirubin (0.2-1.3) mg/dL AST (14-36) U/L ALT (4-34) U/L Alkaline Phosphatase (38-126) U/L Troponin I <0.012 (0.000-0.034) ng/mL Total Protein (6.3-8.2) g/dL Albumin (3.5-5.0) g/dL Disposition Clinical Impression: Chest pain Disposition: ADMITTED IP TO THIS HOSP Is patient prescribed a controlled substance at d/c from ED?: No Referrals: Marcello Wyatt MD [Primary Care Provider] - 1-2 days Time of Disposition: 11:35
[2025-03-17] MEDS: NITROGLYCERIN SL TABS 0.4 MG TAB SUBLINGUAL STA ×2 (10:00→11:03)
[2025-03-17] MEDS: ASPIRIN 81 MG PO STA (10:00)
[2025-03-17] MEDS: NITROGLYCERIN OINT 1 INCH/GM PACKET TOPICAL STA (10:02)
[2025-03-17 10:11] LABS: Basophils # (A) 0.05 10*3/uL (0.00-0.10); Basophils % (A) 0.5 %; Eosinophils # (A) 0.26 10*3/uL (0.04-0.35); Eosinophils % (A) 2.7 %; HCT 41.1 % (37.2-46.3); HGB 13.8 g/dL (12.0-15.0); Lymphocytes # (A) 1.17 10*3/uL (0.90-5.00); Lymphocytes % (A) 12.1 %; MCH 25.9 pg (27.0-32.0); MCHC 33.6 g/dL (32.0-37.0); MCV 77.1 fL (80.0-97.0); Mean Platelet Volume 9.7 fL (9.5-12.2); Monocytes # (A) 0.98 10*3/uL (0.20-1.00); Monocytes % (A) 10.2 %; Neutrophils # (A) 7.13 10*3/uL (1.80-7.70); Platelet Count 298 10*3/uL (140-440); RBC 5.33 10*6/uL (4.10-5.20); RDW 14.5 % (11.5-14.5); WBC 9.64 10*3/uL (4.50-10.00)
[2025-03-17 10:20] LABS: Partial Thromboplastin Time 32.8 sec (22.0-30.0); Prothrombin Time 10.6 sec (10.0-12.5)
--- NOTE | 2025-03-17 10:22 | XR ---
EXAMINATION TYPE: XR chest 2V DATE OF EXAM: 03/17/2025 CLINICAL INDICATION: Female, 74 years old with history of Chest Pain, TECHNIQUE: Frontal and lateral views of the chest are obtained. COMPARISON: Chest CT March 07, 2025 FINDINGS: Underlying emphysematous change is present. Overlying sternal wires are seen. Persistent c ardiomegaly. No new focal airspace opacity or pneumothorax seen bilaterally. The osseous structures are intact. IMPRESSION: Chronic emphysematous changes and cardiomegaly without acute pulmonary process. [facility], , 03/17/2025 10:19 AM
[2025-03-17 10:27] LABS: ALT 18 U/L (4-34); AST 19 U/L (14-36); African American GFR (CKD) >90 (>60 ml/min/1.73 sqM); Albumin 4.5 g/dL (3.5-5.0); Alkaline Phosphatase 114 U/L (38-126); Anion Gap 13 mmol/L; Blood Urea Nitrogen 15 mg/dL (7-17); Calcium 9.7 mg/dL (8.4-10.2); Carbon Dioxide 23 mmol/L (22-30); Chloride 102 mmol/L (98-107); Glucose 181 mg/dL (74-99); Magnesium 1.8 mg/dL (1.6-2.3); Non-African American GFR(CKD) 86 (>60 ml/min/1.73 sqM); Sodium 138 mmol/L (137-145); Total Bilirubin 0.5 mg/dL (0.2-1.3)
[2025-03-17] MEDS ORDERED: NITROGLYCERIN SL TABS 0.4 MG TAB SUBLINGUAL PRN (11:35)
[2025-03-17] MEDS: NITROGLYCERIN OINT 1 INCH/GM PACKET TOPICAL SCH (11:52)
[2025-03-17] MEDS: MORPHINE SULFATE 4 MG/ML SYRINGE IVP STA (11:55)
[2025-03-17] MEDS ORDERED: MAG HYDROX/AL HYDROX/SIMETH 30 ML CUP PO PRN (13:01)
[2025-03-17] MEDS ORDERED: NALOXONE 0.4 MG/ML 1 ML VIAL IV PRN (13:01)
[2025-03-17] MEDS ORDERED: DEXTROSE 50% SYRINGE 50 ML IVP PRN ×2 (13:03)
--- NOTE | 2025-03-17 13:06 | P.HPIM ---
History of Present Illness H&P Date: 03/17/25 History of present illness; patient is a 74-year-old lady with past medical history significant for coronary disease, hypertension, diabetes mellitus presented to the ER because of chest pain. Patient stated she was all right last night when while laying she started having chest pain that was central location, pressure-like, nonradiating, no aggravating or relieving factor associated with this chest pain. Patient was complaining of shortness of breath at time. There was no complaint of orthopnea or PND. There was no episode of diaphoresis during this episode of chest pain. Patient took nitroglycerin that relieved her chest pain. This morning patient woke up and had another episode of chest pain but this time it was like a band going across her chest, that made her concerned and decided to come to the ER. Denies any nausea, vomiting abdominal pain. Patient denies any complaint of dizziness. There is no complaint of headache. Initial lab work done in the ER showed WBC 9.64, hemoglobin 13.8, platelet count 298, sodium 138, potassium 4, BUN 15, creatinine 0.6, glucose 181 troponin 0.012 albumin 4.5 EKG done in the ER showed heart rate of 93, T wave inversion seen in 1 and aVL, no ST segment elevation or depression seen, Chest x-ray done in the ER showed chronic emphysematous changes and cardiomegaly without acute pulmonary process Patient admitted to internal medicine service REVIEW OF SYSTEMS: CONSTITUTIONAL: No fever, no malaise, no fatigue. HEENT: No recent visual problems or hearing problems. Denied any sore throat. CARDIOVASCULAR: No chest pain, orthopnea, PND, no palpitations, no syncope. PULMONARY: No shortness of breath, no cough, no hemoptysis. GASTROINTESTINAL: No diarrhea, no nausea, no vomiting, no abdominal pain. NEUROLOGICAL: No headaches, no weakness, no numbness. HEMATOLOGICAL: Denies any bleeding or petechiae. GENITOURINARY: Denies any burning micturition, frequency, or urgency. MUSCULOSKELETAL/RHEUMATOLOGICAL: Denies any joint pain, swelling, or any muscle pain. ENDOCRINE: Denies any polyuria or polydipsia. The rest of the 14-point review of systems is negative. PHYSICAL EXAMINATION: GENERAL: The patient is alert and oriented x3, not in any acute distress. Well developed, well nourished. HEENT: Pupils are round and equally reacting to light. EOMI. No scleral icterus. No conjunctival pallor. Normocephalic, atraumatic. No pharyngeal erythema. No thyromegaly. CARDIOVASCULAR: S1 and S2 present. No murmurs, rubs, or gallops. PULMONARY: Chest is clear to auscultation, no wheezing or crackles. ABDOMEN: Soft, nontender, nondistended, normoactive bowel sounds. No palpable organomegaly. MUSCULOSKELETAL: No joint swelling or deformity. EXTREMITIES: No cyanosis, clubbing, or pedal edema. NEUROLOGICAL: Gross neurological examination did not reveal any focal deficits. SKIN: No rashes. Assessment and plan Chest pain, rule out acute coronary syndrome History of coronary artery disease status post CABG Hypertension Hyperlipidemia Monitor vital signs Monitor CBC Monitor CMP Continue telemetry monitoring Serial EKG Trend troponin Ordered lipid panel Ordered 2D echo Order D-dimer Resume home meds Consult cardiology Labs and medication were reviewed.. Continue same treatment. Continue with symptomatic treatment. Resume home medication. Monitor labs and vitals. DVT and GI prophylaxis. Further recommendations as per clinical course of the patient Dictation was produced using [employer] dictation software. please excuse any grammatical, word or spelling errors. Past Medical History Past Medical History: Atrial Fibrillation, Coronary Artery Disease (CAD), Cancer, Diabetes Mellitus, Hypertension Additional Past Medical History / Comment(s): Parkisons diagnosis , uterine cancer currently on chemo , "partially atrophied right kidney", vertigo History of Any Multi-Drug Resistant Organisms: None Reported Past Surgical History: Section, Cholecystectomy, Heart Catheterization, Heart Catheterization With Stent, Hysterectomy Additional Past Surgical History / Comment(s): Aortic valve, uterine cancer, Past Anesthesia/Blood Transfusion Reactions: No Reported Reaction Date of Last Stent Placement:: 2014 Past Psychological History: No Psychological Hx Reported Smoking Status: Never smoker Past Alcohol Use History: None Reported Past Drug Use History: None Reported Medications and Allergies Home Medications Medication Instructions Recorded Confirmed Type Acetaminophen Tab [Tylenol] 1,000 mg PO Q6H PRN 08/11/23 08/31/23 History Apixaban [Eliquis] 5 mg PO BID 08/11/23 08/31/23 History Cholecalciferol (Vitamin D3) 125 mcg PO DAILY 08/11/23 08/31/23 History [Vitamin D3 (125 MCG = 5,000 IU)] Clopidogrel [Plavix] 75 mg PO HS 08/11/23 08/31/23 History Cyclobenzaprine [Flexeril] 5 mg PO TID PRN 08/11/23 08/31/23 History Docusate [Colace] 100 mg PO DAILY PRN 08/11/23 08/31/23 History Furosemide [Lasix] 20 mg PO DAILY 08/11/23 08/31/23 History Lidocaine 5% Patch [Lidoderm 5% 1 patch TRANSDERM DAILY PRN 08/11/23 08/31/23 History Patch] Metoprolol Succinate (ER) [Toprol 100 mg PO BID 08/11/23 08/31/23 History XL] Nitroglycerin Sl Tabs [Nitrostat] 0.4 mg SL Q5M PRN 08/11/23 08/31/23 History Potassium Chloride ER [K-Dur 10] 10 meq PO BID 08/11/23 08/31/23 History cloNIDine 0.2 MG/24HR PATCH 1 patch TRANSDERM SA 08/11/23 08/31/23 History [Catapres-TTS] Insulin Detemir (Levemir) [Levemir] 45 unit SQ HS each 08/14/23 08/31/23 Rx polyethylene glycoL 3350 [Miralax] 17 gm PO DAILY packet 08/14/23 08/31/23 Rx DULoxetine HCL [Cymbalta] 20 mg PO DAILY 08/31/23 08/31/23 History Gabapentin [Neurontin] 300 mg PO TID@0600,1400,2200 08/31/23 08/31/23 History INSULIN ASPART (NovoLOG) [NovoLOG See Protocol SQ ACHS 08/31/23 08/31/23 History (formulary)] Menthol [Biofreeze] 1 applic TOPICAL Q8H PRN 08/31/23 08/31/23 History amLODIPine [Norvasc] 5 mg PO HS 08/31/23 08/31/23 History lisinopriL [Zestril] 20 mg PO DAILY 08/31/23 08/31/23 History Midodrine [ProAmatine] 2.5 mg PO AC-TID #90 tab 09/02/23 Rx hydrOXYzine HCL [Atarax] 25 mg PO TID PRN #20 tab 03/10/24 Rx Allergies Allergy/AdvReac Type Severity Reaction Status Date / Time diltiazem Allergy Rash/Hives Verified 03/17/25 09:29 gabapentin Allergy Rash/Hives Verified 03/17/25 09:29 hydrochlorothiazide Allergy Rash/Hives Verified 03/17/25 09:29 metformin Allergy Rash/Hives Verified 03/17/25 09:29 ondansetron [From Zofran] Allergy Rash/Hives Verified 03/17/25 09:29 Penicillins Allergy Rash/Hives Verified 03/17/25 09:29 [id number] Reductase Allergy Rash/Hives Verified 03/17/25 09:29 Inhibitor Physical Exam Vitals: Vital Signs Temp Pulse Resp BP Pulse Ox 03/17/25 12:40 77 16 128/84 94 L 03/17/25 12:02 98.8 F 73 18 144/78 96 03/17/25 11:55 87 18 151/90 97 03/17/25 11:02 98.8 F 92 18 147/81 98 03/17/25 10:00 98.3 F 85 18 149/75 96 03/17/25 09:25 97.8 F 97 18 182/88 98 Intake and Output 03/16/25 03/17/25 03/17/25 22:59 06:59 14:59 Other: Weight 86.183 kg Results CBC & Chem 7: 03/17/25 09:52 03/17/25 09:52 Labs: Abnormal Lab Results - Last 24 Hours (Table) 03/17/25 03/17/25 03/17/25 Range/Units 09:52 09:52 09:52 RBC 5.33 H (4.10-5.20) 10*6/uL MCV 77.1 L (80.0-97.0) fL MCH 25.9 L (27.0-32.0) pg Immature Gran # 0.05 H (0.00-0.04) 10*3/uL APTT 32.8 H (22.0-30.0) sec Glucose 181 H (74-99) mg/dL
[2025-03-17 13:09] LABS: Glucose,Whole Blood 171 mg/dL (70-110)
[2025-03-17 17:56] LABS: Glucose,Whole Blood 180 mg/dL (70-110)
[2025-03-17] MEDS: INSULIN LISPRO (HumaLOG) 100 UNIT/ML 10 mL VL SQ SCH (18:22)
[2025-03-17] MEDS ORDERED: DOCUSATE 100 MG CAP PO PRN (20:21)
[2025-03-17] MEDS ORDERED: LIDOCAINE 4% PATCH TOPICAL PRN (20:21)
[2025-03-17] MEDS ORDERED: ACETAMINOPHEN TAB 325 MG TAB PO PRN (20:21)
[2025-03-17 21:04] LABS: Glucose,Whole Blood 157 mg/dL (70-110)
[2025-03-17] MEDS: METOPROLOL SUCCINATE (ER) 100 MG TAB.ER.24H PO SCH (21:45)
[2025-03-17] MEDS: APIXABAN 5 MG TAB PO SCH (21:45)
[2025-03-17] MEDS: CLOPIDOGREL 75 MG TAB PO SCH (21:45)
[2025-03-17] MEDS: GABAPENTIN 300 MG CAP PO SCH (21:45)
[2025-03-18 06:42] LABS: Glucose,Whole Blood 189 mg/dL (70-110)
[2025-03-18 07:05] LABS: Basophils # (A) 0.03 10*3/uL (0.00-0.10); Basophils % (A) 0.3 %; Eosinophils # (A) 0.17 10*3/uL (0.04-0.35); Eosinophils % (A) 1.8 %; HCT 37.4 % (37.2-46.3); HGB 12.1 g/dL (12.0-15.0); Lymphocytes # (A) 1.38 10*3/uL (0.90-5.00); Lymphocytes % (A) 14.5 %; MCH 25.1 pg (27.0-32.0); MCHC 32.4 g/dL (32.0-37.0); MCV 77.6 fL (80.0-97.0); Mean Platelet Volume 9.9 fL (9.5-12.2); Monocytes # (A) 0.85 10*3/uL (0.20-1.00); Monocytes % (A) 8.9 %; Neutrophils # (A) 7.04 10*3/uL (1.80-7.70); Neutrophils % (A) 74.2 %; Platelet Count 278 10*3/uL (140-440); RBC 4.82 10*6/uL (4.10-5.20); RDW 14.4 % (11.5-14.5)
[2025-03-18 07:27] LABS: ALT 16 U/L (4-34); AST 16 U/L (14-36); African American GFR (CKD) >90 (>60 ml/min/1.73 sqM); Albumin 3.6 g/dL (3.5-5.0); Albumin/Globulin Ratio 1.3; Alkaline Phosphatase 82 U/L (38-126); Anion Gap 11 mmol/L; Blood Urea Nitrogen 16 mg/dL (7-17); Calcium 8.9 mg/dL (8.4-10.2); Carbon Dioxide 23 mmol/L (22-30); Chloride 105 mmol/L (98-107); Globulin 2.8 g/dL; Glucose 188 mg/dL (74-99); Non-African American GFR(CKD) 86 (>60 ml/min/1.73 sqM); Potassium 3.9 mmol/L (3.5-5.1); Sodium 139 mmol/L (137-145); Total Bilirubin 0.6 mg/dL (0.2-1.3); Total Protein 6.4 g/dL (6.3-8.2)
[2025-03-18] MEDS: FUROSEMIDE 20 MG TAB PO SCH (09:28)
[2025-03-18] MEDS: amLODIPine 10 MG TAB PO SCH (09:28)
[2025-03-18] MEDS: ASPIRIN 325 MG TAB PO SCH (09:28)
[2025-03-18 12:20] LABS: Glucose,Whole Blood 168 mg/dL (70-110)
--- NOTE | 2025-03-18 12:30 | CA ---
Transthoracic Echo Report Name: Kim Lynn Age: 74 Gender: F : 1950 Exam Date: 03/17/2025 17:00 Exam Location: [facility] Ht (in): 64 Wt (lb): 190 Ordering Physician: Wicho Mclaughlin MD Attending/Referring Phys: Oil Processing Technician Arely Epps RDCS Procedure CPT: Indications: Chest Pain Cardiac Hx: Technical Quality: Good Contrast 1: Total Dose (mL): Contrast 2: Total Dose (mL): MEASUREMENTS (Male / Female) Normal Values 2D ECHO LV Diastolic Diameter PLAX 4.8 cm 4.2 - 5.9 / 3.9 - 5.3 cm LV Systolic Diameter PLAX 3.8 cm IVS Diastolic Thickness 0.9 cm 0.6 - 1.0 / 0.6 - 0.9 cm LVPW Diastolic Thickness 0.9 cm 0.6 - 1.0 / 0.6 - 0.9 cm LV Relative Wall Thickness 0.4 LVOT Diameter 1.8 cm LV Diastolic Volume MOD BP 74.3 cm??? 67 - 155 / 56 - 104 cm??? LV Systolic Volume MOD BP 32.6 cm??? 22 - 58 / 19 - 49 cm??? LV Ejection Fraction MOD BP 56.1 % >= 55 % LV Cardiac Index MOD BP 1726.7 cm???/min???m??? LV Diastolic Volume MOD 4C 74.7 cm??? LV Systolic Volume MOD 4C 33.0 cm??? LV Ejection Fraction MOD 4C 55.8 % LV Cardiac Index MOD 4C 1726.3 cm???/min???m??? LV Diastolic Length 4C 6.7 cm LV Systolic Length 4C 6.0 cm LV Diastolic Volume MOD 2C 73.6 cm??? LV Systolic Volume MOD 2C 31.7 cm??? LV Ejection Fraction MOD 2C 56.9 % LV Cardiac Index MOD 2C 1733.0 cm???/min???m??? LV Diastolic Length 2C 6.8 cm LV Systolic Length 2C 5.9 cm Ascending Aorta Diameter 3.4 cm DOPPLER AV Peak Velocity 241.4 cm/s AV Peak Gradient 23.3 mmHg AV Mean Velocity 174.6 cm/s AV Mean Gradient 13.3 mmHg AV Velocity Time Integral 55.9 cm LVOT Peak Velocity 146.0 cm/s LVOT Peak Gradient 8.5 mmHg LVOT Velocity Time Integral 30.6 cm LVOT Stroke Volume 80.8 cm??? LVOT Stroke Volume Index 42.2 ml/m??? LVOT Cardiac Index 3341.7 cm???/min???m??? AV Area Cont Eq vti 1.4 cm??? AV Area Cont Eq pk 1.6 cm??? MV Peak Velocity 169.3 cm/s MV Peak Gradient 11.5 mmHg MV Mean Velocity 74.5 cm/s MV Mean Gradient 3.3 mmHg MV Velocity Time Integral 35.1 cm MV Area PHT 5.3 cm??? Mitral E Point Velocity 146.9 cm/s Mitral A Point Velocity 34.9 cm/s Mitral E to A Ratio 4.2 MV Deceleration Time 143.4 ms TR Peak Velocity 340.7 cm/s TR Peak Gradient 46.4 mmHg Right Atrial Pressure 10.0 mmHg Pulmonary Artery Systolic Pressu 56.4 mmHg Right Ventricular Systolic Press 56.4 mmHg PV Peak Velocity 100.1 cm/s PV Peak Gradient 4.0 mmHg FINDINGS Left Ventricle Left ventricular ejection fraction is estimated at 55-60 %. Left ventricular cavity size normal. Left ventricular wall thickness normal. No obvious regional wall motion abnormalities. Right Ventricle Right ventricular dilatation. Mildly reduced right ventricular global systolic function. Severe pulmonary hypertension. Right Atrium Mild right atrial dilatation. Left Atrium Mildly increased left atrial area. Mitral Valve Mitral valve thickened. Mitral annular calcification. No evidence for mitral valve prolapse. Mild mitral regurgitation. Mild mitral stenosis. Aortic Valve ioprosthetic aortic valve without stenosis with a peak velocity of 2.4 m/s, peak gradient 23 mmHg, mean gradient 13 mmHg, and estimated aortic valve area of 1.4 cm???. No paravalvular aortic regurgitation. No central aortic regurgitation. Tricuspid Valve Structurally normal tricuspid valve. No tricuspid stenosis. Moderate tricuspid regurgitation. Pulmonic Valve Structurally normal pulmonic valve. No pulmonic stenosis. Trace pulmonic regurgitation. Pericardium No pericardial effusion. Aorta Normal size aortic root and proximal ascending aorta. CONCLUSIONS LVEF 55% No obvious regional wall motion abnormality Mild RV dilatation with severe pulmonary hypertension with RVSP of 56 mmHg Mild biatrial dilatation. Elevated LA filling pressures Mild mitral regurgitation and mild mitral stenosis. Calcific degeneration of mitral valve Bioprosthetic aortic valve with mean gradient of 13 mmHg, no significant regurgitation or paravalvular leak Moderate tricuspid regurgitation Previewed by: Dr Beni Che (Electronically Signed) Final Date: 18 March 2025 12:29
[2025-03-18 12:53] LABS: Chol/HDL Ratio 6.43 Ratio; LDL Cholesterol,Calculated 100.6 mg/dL (0.0-131.0)
[2025-03-18] MEDS ORDERED: CAFFEINE CITRATE 60 MG/3 ML VIAL IV PRN (14:54)
[2025-03-18] MEDS ORDERED: AMINOPHYLLINE 500 MG/20 ML VIAL IV PRN (14:54)
--- NOTE | 2025-03-18 14:54 | P.CRDCN ---
History of Present Illness Consult date: 03/18/25 History of present illness: HISTORY OF PRESENTING ILLNESS: 74-year-old female with past medical history of CAD status post CABG 5 vessel thereafter requiring 2 PCI and balloon angioplasty, also history of surgical aortic valve replacement for severe aortic stenosis. She also has type 2 diabetes obesity and hypertension. She presented to the hospital because of substernal chest tightness and pressure-like sensation that was nonradiating. Her symptoms did get better with sublingual nitroglycerin and Nitropatch. She was noted to be slightly hypertensive on admission. Her chest x-ray showed mild increased interstitial markings with no signs of significant consolidation or congestion. Hb 13, BUN 15, creatinine 0.6, A1c 7.6, TG 198, LDL 100 EKG showed atrial fibrillation which was rate controlled with nonspecific ST changes Echo showed EF of 55%, no RWMA, mild RV dilatation severe pulmonary hypertension RVSP 56 mmHg, mild biatrial dilatation, elevated LA filling pressures, mild mitral regurgitation mild mitral stenosis, calcific degeneration mitral valve, bioprosthetic aortic valve with mean gradient 13 mmHg, no significant regurgitation or PVL, moderate TR REVIEW OF SYSTEMS: 14 point review of system is negative except what is mentioned above in HPI. PHYSICAL EXAMINATION: Neck: Brisk carotid upstroke, no jugular venous distention. Lungs: Clear to auscultation. Heart: Regular rate and rhythm, mild systolic murmur audible in aortic area Abdomen: Soft nontender, positive bowel sounds. Extremities: No edema, intact distal pulses. Neuro: Alert, oritented, no focal deficits. Detailed neuro exam was not performed. ASSESSMENT: # Substernal chest pressure, rule out of ACS # CAD status post CABG x 5 vessel, status post 2 PCI and balloon angioplasty # Surgical bioprosthetic aortic valve replacement # Calcific degeneration of mitral valve with mild MR mild MS # Moderate pulmonary hypertension, likely mixed group 2 and group 3 # Statin intolerance PLAN: Obtain NT-proBNP, TSH and magnesium level Start Farxiga 10, Aldactone 25, Ranexa 500 twice daily, Continue Lasix 20 Reduce amlodipine to 5, resume lisinopril 40 mg daily Add Imdur 15 mg daily Plavix Eliquis Lipitor 40. Continue metoprolol 100 BID Repatha on outpatient basis if intolerant to statins Lexiscan nuclear stress test on Thursday Beni Che MD, FACC, RPVI Thank you for allowing [facility] to participate in this patient's care. Feel free to reach out in case of any followup questions. 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 for this, uterine cancer chemo and radiation last dose 04/12 01/02, "partially atrophied right kidney", vertigo History of Any Multi-Drug Resistant Organisms: None Reported Past Surgical History: Section, Cholecystectomy, Heart Catheterization, Heart Catheterization With Stent, Hysterectomy Additional Past Surgical History / Comment(s): Aortic valve replacement, uterine cancer dx 04/2019, Past Anesthesia/Blood Transfusion Reactions: No Reported Reaction Date of Last Stent Placement:: 2014 Past Psychological History: No Psychological Hx Reported Smoking Status: Never smoker Past Alcohol Use History: None Reported Past Drug Use History: None Reported Medications and Allergies Home Medications Medication Instructions Recorded Confirmed Type Apixaban [Eliquis] 5 mg PO BID 08/11/23 03/17/25 History Clopidogrel [Plavix] 75 mg PO HS 08/11/23 03/17/25 History Docusate [Colace] 100 mg PO BID PRN 08/11/23 03/17/25 History Furosemide [Lasix] 20 mg PO DAILY 08/11/23 03/17/25 History Lidocaine 5% Patch [Lidoderm 5% 1 patch TRANSDERM DAILY PRN 08/11/23 03/17/25 History Patch] Metoprolol Succinate (ER) [Toprol 100 mg PO BID 08/11/23 03/17/25 History XL] Nitroglycerin Sl Tabs [Nitrostat] 0.4 mg SL Q5M PRN 08/11/23 03/17/25 History Potassium Chloride ER [K-Dur 10] 10 meq PO BID 08/11/23 03/17/25 History Acetaminophen Tab [Tylenol] 325 mg PO Q12H PRN 03/17/25 03/17/25 History Gabapentin 600 mg PO TID 03/17/25 03/17/25 History Insulin Glargine,Hum.rec.anlog 40 units SQ HS 03/17/25 03/17/25 History [Lantus Solostar Pen] Insulin Lispro [humaLOG Kwikpen] 20 unit SQ AC-TID 03/17/25 03/17/25 History Nystatin 100,000Unit/gm Cream 1 applic TOPICAL BID 03/17/25 03/17/25 History [Mycostatin Cream] amLODIPine 10 mg PO DAILY 03/17/25 03/17/25 History lisinopriL 40 mg PO DAILY 03/17/25 03/17/25 History Allergies Allergy/AdvReac Type Severity Reaction Status Date / Time diltiazem Allergy Rash/Hives Verified 03/17/25 09:29 hydrochlorothiazide Allergy Rash/Hives Verified 03/17/25 09:29 metformin Allergy Rash/Hives Verified 03/17/25 09:29 ondansetron [From Zofran] Allergy Rash/Hives Verified 03/17/25 09:29 Penicillins Allergy Rash/Hives Verified 03/17/25 09:29 Xkenulz-RBX-VnG Reductase Allergy Rash/Hives Verified 03/17/25 09:29 Inhibitor Physical Exam Vitals: Vital Signs Temp Pulse Pulse Resp BP BP Pulse Ox 03/18/25 07:00 99.6 F 92 15 153/77 96 03/18/25 02:05 98.8 F 90 18 132/79 95 03/17/25 21:05 98.3 F 87 18 145/70 96 03/17/25 20:13 81 16 187/103 96 03/17/25 19:21 82 18 181/98 97 03/17/25 15:14 80 18 140/69 97 Intake and Output 03/17/25 03/18/25 03/18/25 22:59 06:59 14:59 Other: Voiding Method Toilet Toilet Toilet # Voids 1 2 Weight 86.183 kg Results 03/18/25 06:09 03/18/25 06:09 Cardiac Enzymes 03/17/25 03/18/25 Range/Units 14:57 06:09 AST 16 (14-36) U/L Troponin I <0.012 (0.000-0.034) ng/mL Lipids 03/18/25 Range/Units 06:09 Triglycerides 198.00 H (0.00-149.00) mg/dL Cholesterol 166.00 (0.00-200.00) mg/dL HDL Cholesterol 25.80 L (40.00-60.00) mg/dL Cholesterol/HDL Ratio 6.43 Ratio CBC 03/18/25 Range/Units 06:09 WBC 9.50 (4.50-10.00) 10*3/uL RBC 4.82 (4.10-5.20) 10*6/uL Hgb 12.1 (12.0-15.0) g/dL Hct 37.4 (37.2-46.3) % Plt Count 278 (140-440) 10*3/uL Comprehensive Metabolic Panel 03/18/25 Range/Units 06:09 Sodium 139 (137-145) mmol/L Potassium 3.9 (3.5-5.1) mmol/L Chloride 105 (98-107) mmol/L Carbon Dioxide 23 (22-30) mmol/L BUN 16 (7-17) mg/dL Creatinine 0.66 (0.52-1.04) mg/dL Glucose 188 H (74-99) mg/dL Calcium 8.9 (8.4-10.2) mg/dL AST 16 (14-36) U/L ALT 16 (4-34) U/L Alkaline Phosphatase 82 (38-126) U/L Total Protein 6.4 (6.3-8.2) g/dL Albumin 3.6 (3.5-5.0) g/dL Current Medications Generic Name Dose Route Start Last Admin Trade Name Freq PRN Reason Stop Dose Admin Acetaminophen 650 mg 03/17/25 13:01 Acetaminophen Tab 325 Mg Tab PO Q6HR PRN Pain 4-6 or Fever > 100.5 Acetaminophen 325 mg 03/17/25 20:21 Acetaminophen Tab 325 Mg Tab PO Q12H PRN Pain 1-3 or Fever > 100.5 Al Hydroxide/Mg Hydroxide 15 ml 03/17/25 13:01 Mag Hydrox/Al Hydrox/Simeth 30 Ml Cup PO Q6HR PRN Indigestion Amlodipine Besylate 5 mg 03/19/25 09:00 Amlodipine 10 Mg Tab PO DAILY FATEMEH Apixaban 5 mg 03/17/25 21:00 03/18/25 09:28 Apixaban 5 Mg Tab PO 5 mg BID FATEMEH Administration Protocol Atorvastatin Calcium 40 mg 03/18/25 21:00 Atorvastatin 40 Mg Tab PO HS FATEMEH Clopidogrel Bisulfate 75 mg 03/17/25 21:00 03/17/25 21:45 Clopidogrel 75 Mg Tab PO 75 mg HS FATEMEH Administration Dapagliflozin 10 mg 03/18/25 14:45 Dapagliflozin Propanediol 10 Mg Tablet PO DAILY FATEMEH Dextrose/Water 25 ml 03/17/25 13:03 Dextrose 50% Syringe 50 Ml IVP PER PROTOCOL PRN Hypoglycemia Protocol Dextrose/Water 50 ml 03/17/25 13:03 Dextrose 50% Syringe 50 Ml IVP PER PROTOCOL PRN Hypoglycemia Protocol Docusate Sodium 100 mg 03/17/25 20:21 Docusate 100 Mg Cap PO BID PRN Constipation Furosemide 20 mg 03/18/25 09:00 03/18/25 09:28 Furosemide 20 Mg Tab PO 20 mg DAILY FATEMEH Administration Gabapentin 600 mg 03/17/25 22:00 03/18/25 09:29 Gabapentin 300 Mg Cap PO 600 mg TID FATEMEH Administration Insulin Human Lispro 0 unit 03/17/25 17:30 03/18/25 12:37 Insulin Lispro (Humalog) 100 Unit/Ml 10 Ml Vl SQ 3 unit ACHS FATEMEH Administration Protocol Isosorbide Mononitrate 15 mg 03/18/25 15:00 Isosorbide Mononitrate Er 15 Mg Tab PO DAILY [facility] Lidocaine 1 patch 03/17/25 20:21 Lidocaine 4% Patch TOPICAL DAILY PRN Pain Lisinopril 40 mg 03/18/25 14:45 Lisinopril 20 Mg Tab PO DAILY [facility] Metoprolol Succinate 100 mg 03/17/25 21:00 03/18/25 09:28 Metoprolol Succinate (Er) 100 Mg Tab.Er.24h PO 100 mg BID FATEMEH Administration Naloxone HCl 0.2 mg 03/17/25 13:01 Naloxone 0.4 Mg/Ml 1 Ml Vial IV Q2M PRN Opioid Reversal Nitroglycerin 0.4 mg 03/17/25 11:35 Nitroglycerin Sl Tabs 0.4 Mg Tab SUBLINGUAL Q5M PRN Chest Pain Ranolazine 500 mg 03/18/25 14:45 Ranolazine 500 Mg Tab.Er.12h PO Q12HR [facility] Spironolactone 25 mg 03/18/25 14:45 Spironolactone 25 Mg Tab PO DAILY [facility] Intake and Output 03/17/25 03/18/25 03/18/25 22:59 06:59 14:59 Other: Voiding Method Toilet Toilet Toilet # Voids 1 2 Weight 86.183 kg 03/18/25 06:09 03/18/25 06:09
[2025-03-18] MEDS: ISOSORBIDE MONONITRATE ER 15 MG TAB PO SCH (15:50)
[2025-03-18] MEDS: RANOLAZINE 500 MG TAB.ER.12H PO SCH (15:50)
[2025-03-18] MEDS: lisinopriL 20 MG TAB PO SCH (15:52)
[2025-03-18] MEDS: DAPAGLIFLOZIN PROPANEDIOL 10 MG TABLET PO SCH (15:54)
[2025-03-18] MEDS: SPIRONOLACTONE 25 MG TAB PO SCH (15:55)
[2025-03-18 17:25] LABS: Magnesium 1.7 mg/dL (1.6-2.3)
[2025-03-18 17:33] LABS: Glucose,Whole Blood 194 mg/dL (70-110)
[2025-03-18 17:35] LABS: NT-Pro-B-Type Natriuretic Pept 1700 pg/mL
[2025-03-18 20:18] LABS: Glucose,Whole Blood 238 mg/dL (70-110)
--- NOTE | 2025-03-18 20:18 | P.PN ---
Subjective Progress Note Date: 03/18/25 74-year-old lady with past medical history significant for coronary disease, hypertension, diabetes mellitus presented to the ER because of chest pain. Patient stated she was all right last night when while laying she started having chest pain that was central location, pressure-like, nonradiating, no ag gravating or relieving factor associated with this chest pain. Patient was complaining of shortness of breath at time. There was no complaint of orthopnea or PND. There was no episode of diaphoresis during this episode of chest pain. Patient took nitroglycerin that relieved her chest pain. This morning patient woke up and had another episode of chest pain but this time it was like a band going across her chest, that made her concerned and decided to come to the ER. Denies any nausea, vomiting abdominal pain. Patient denies any complaint of dizziness. There is no complaint of headache. Initial lab work done in the ER showed WBC 9.64, hemoglobin 13.8, platelet count 298, sodium 138, potassium 4, BUN 15, creatinine 0.6, glucose 181 troponin 0.012 albumin 4.5 EKG done in the ER showed heart rate of 93, T wave inversion seen in 1 and aVL, no ST segment elevation or depression seen, Chest x-ray done in the ER showed chronic emphysematous changes and cardiomegaly without acute pulmonary process Patient admitted to internal medicine service Objective - Vital Signs Vital signs: Vital Signs Temp 99.6 F 03/18/25 07:00 Pulse 92 03/18/25 07:00 Resp 15 03/18/25 07:00 BP 153/77 03/18/25 07:00 Pulse Ox 96 03/18/25 07:00 FiO2 Intake & Output 03/17/25 03/18/25 03/18/25 18:59 06:59 18:59 Weight 86.183 kg 86.183 kg Other: Voiding Method Toilet Toilet # Voids 2 - Exam GENERAL: The patient is alert and oriented x3, not in any acute distress. Well developed, well nourished. HEENT: Pupils are round and equally reacting to light. EOMI. No scleral icterus. No conjunctival pallor. Normocephalic, atraumatic. No pharyngeal erythema. No thyromegaly. CARDIOVASCULAR: S1 and S2 present. No murmurs, rubs, or gallops. PULMONARY: Chest is clear to auscultation, no wheezing or crackles. ABDOMEN: Soft, nontender, nondistended, normoactive bowel sounds. No palpable organomegaly. MUSCULOSKELETAL: No joint swelling or deformity. EXTREMITIES: No cyanosis, clubbing, or pedal edema. NEUROLOGICAL: Gross neurological examination did not reveal any focal deficits. SKIN: No rashes. - Labs CBC & Chem 7: 03/18/25 06:03/18/25 06:09 Labs: Abnormal Lab Results - Last 24 Hours (Table) 03/17/25 03/17/25 03/17/25 Range/Units 09:52 13:07 17:52 MCV (80.0-97.0) fL MCH (27.0-32.0) pg D-Dimer 1.30 H (<0.60) mg/L FEU Glucose (74-99) mg/dL POC Glucose (mg/dL) 171 H 180 H (70-110) mg/dL Hemoglobin A1c (<=6.0) % Triglycerides (0.00-149.00) mg/dL HDL Cholesterol (40.00-60.00) mg/dL 03/17/25 03/18/25 03/18/25 Range/Units 21:02 06:09 06:09 MCV 77.6 L (80.0-97.0) fL MCH 25.1 L (27.0-32.0) pg D-Dimer (<0.60) mg/L FEU Glucose (74-99) mg/dL POC Glucose (mg/dL) 157 H (70-110) mg/dL Hemoglobin A1c 7.6 H (<=6.0) % Triglycerides (0.00-149.00) mg/dL HDL Cholesterol (40.00-60.00) mg/dL 03/18/25 03/18/25 03/18/25 Range/Units 06:09 06:31 12:17 MCV (80.0-97.0) fL MCH (27.0-32.0) pg D-Dimer (<0.60) mg/L FEU Glucose 188 H (74-99) mg/dL POC Glucose (mg/dL) 189 H 168 H (70-110) mg/dL Hemoglobin A1c (<=6.0) % Triglycerides 198.00 H (0.00-149.00) mg/dL HDL Cholesterol 25.80 L (40.00-60.00) mg/dL Assessment and Plan Assessment: Chest pain, rule out acute coronary syndrome History of coronary artery disease status post CABG Hypertension Hyperlipidemia Monitor vital signs Monitor CBC Monitor CMP Continue telemetry monitoring Serial EKG Trend troponin Ordered lipid panel Ordered 2D echo Order D-dimer Resume home meds Consult cardiology Labs and medication were reviewed.. Continue same treatment. Continue with symptomatic treatment. Resume home medication. Monitor labs and vitals. DVT and GI prophylaxis. Further recommendations as per clinical course of the patient
[2025-03-18] MEDS ORDERED: ATORVASTATIN 40 MG TAB PO SCH (21:00)
[2025-03-19 06:02] LABS: Glucose,Whole Blood 235 mg/dL (70-110)
--- NOTE | 2025-03-19 07:38 | P.PN ---
Subjective Progress Note Date: 03/19/25 HISTORY OF PRESENTING ILLNESS: 74-year-old female with past medical history of CAD status post CABG 5 vessel thereafter requiring 2 PCI and balloon angioplasty, also history of surgical aortic valve replacement for severe aortic stenosis. She also has type 2 diabetes obesity and hypertension. She presented to the hospital because of substernal chest tightness and pressure-like sensation that was nonradiating. Her symptoms did get better with sublingual nitroglycerin and Nitropatch. She was noted to be slightly hypertensive on admission. Her chest x-ray showed mild increased interstitial markings with no signs of significant consolidation or congestion. Hb 13, BUN 15, creatinine 0.6, A1c 7.6, TG 198, LDL 100 EKG showed atrial fibrillation which was rate controlled with nonspecific ST corey nges Echo showed EF of 55%, no RWMA, mild RV dilatation severe pulmonary hypertension RVSP 56 mmHg, mild biatrial dilatation, elevated LA filling pressures, mild mitral regurgitation mild mitral stenosis, calcific degeneration mitral valve, bioprosthetic aortic valve with mean gradient 13 mmHg, no significant regurgitation or PVL, moderate TR Progress note 03/19/2025 Patient seen and examined at bedside this a.m. BP 108/66, heart rate 86 no labs to review from today Denies any new cardiovascular symptoms at this time PHYSICAL EXAMINATION: Neck: Brisk carotid upstroke, no jugular venous distention. Lungs: Clear to auscultation. Heart: Regular rate and rhythm, mild systolic murmur audible in aortic area Abdomen: Soft nontender, positive bowel sounds. Extremities: No edema, intact distal pulses. Neuro: Alert, oritented, no focal deficits. Detailed neuro exam was not performed. ASSESSMENT: # Substernal chest pressure, rule out of ACS # CAD status post CABG x 5 vessel, status post 2 PCI and balloon angioplasty # Surgical bioprosthetic aortic valve replacement # Calcific degeneration of mitral valve with mild MR mild MS # Moderate pulmonary hypertension, likely mixed group 2 and group 3 # Statin intolerance Pertinent cardiac testing NT-proBNP 1700, A1c 7.6, LDL 100, TG 198 TSH 1.9 PLAN: Start Farxiga 10, Aldactone 25, Ranexa 500 twice daily, Continue Lasix 20 Reduce amlodipine to 5, resume lisinopril 40 mg daily Add Imdur 15 mg daily Plavix Eliquis Lipitor 40. Continue metoprolol 100 BID Repatha on outpatient as patient has high cardiovascular burden and her LDL is not at goal. Lexiscan nuclear stress test on Thursday Objective - Vital Signs Vital signs: Vital Signs Temp 98.4 F 03/19/25 02:00 Pulse 86 03/19/25 02:00 Resp 16 03/19/25 02:00 BP 108/66 03/19/25 02:00 Pulse Ox 97 03/19/25 02:00 FiO2 Intake & Output 03/18/25 03/19/25 03/19/25 18:59 06:59 18:59 Other: Voiding Method Bedside Commode Bedside Commode # Voids 2 1 - Labs CBC & Chem 7: 03/18/25 06:09 03/18/25 06:09 Labs: Abnormal Lab Results - Last 24 Hours (Table) 03/18/25 03/18/25 03/18/25 Range/Units 06:09 06:09 12:17 POC Glucose (mg/dL) 168 H (70-110) mg/dL Hemoglobin A1c 7.6 H (<=6.0) % Triglycerides 198.00 H (0.00-149.00) mg/dL HDL Cholesterol 25.80 L (40.00-60.00) mg/dL 03/18/25 03/18/25 03/19/25 Range/Units 17:32 20:16 06:00 POC Glucose (mg/dL) 194 H 238 H 235 H (70-110) mg/dL Hemoglobin A1c (<=6.0) % Triglycerides (0.00-149.00) mg/dL HDL Cholesterol (40.00-60.00) mg/dL
[2025-03-19] MEDS: amLODIPine 5 MG TAB PO SCH (08:34)
[2025-03-19 09:19] LABS: BUN/Creat Ratio 24.14 Ratio (12.00-20.00); Blood Urea Nitrogen 16.9 mg/dL (9.0-27.0); Calcium 8.5 mg/dL (8.7-10.3); Carbon Dioxide 23.1 mmol/L (21.6-31.8); Chloride 102 mmol/L (96-109); Glucose 225 mg/dL (70-110); Potassium 3.8 mmol/L (3.5-5.5); Sodium 137 mmol/L (135-145)
[2025-03-19 09:55] LABS: Basophils # (A) 0.04 X 10*3/uL (0.00-0.10); Basophils % (A) 0.5 %; Eosinophils # (A) 0.31 X 10*3/uL (0.04-0.35); Eosinophils % (A) 3.6 %; HCT 37.3 % (37.2-46.3); HGB 11.7 g/dL (12.0-15.0); Lymphocytes # (A) 1.49 X 10*3/uL (0.90-5.00); Lymphocytes % (A) 17.5 %; MCH 24.6 pg (27.0-32.0); MCHC 31.4 g/dL (32.0-37.0); MCV 78.5 FL (80.0-97.0); Mean Platelet Volume 10.5 FL (9.5-12.2); Monocytes # (A) 0.88 X 10*3/uL (0.20-1.00); Monocytes % (A) 10.3 %; NRBC Per 100 WBC 0 X 10*3/uL (0.00-0.01); Neutrophils # (A) 5.76 X 10*3/uL (1.80-7.70); Neutrophils % (A) 67.7 %; Platelet Count 287 X 10*3/uL (140-440); RBC 4.75 X 10*6/uL (4.10-5.20); RDW 14.4 % (11.5-14.5); WBC 8.51 X 10*3/uL (4.50-10.00)
[2025-03-19 12:36] LABS: Glucose,Whole Blood 218 mg/dL (70-110)
[2025-03-19] MEDS: ACETAMINOPHEN TAB 325 MG TAB PO PRN (16:58)
[2025-03-19 17:36] LABS: Glucose,Whole Blood 288 mg/dL (70-110)
--- NOTE | 2025-03-19 18:05 | P.PN ---
Subjective Progress Note Date: 03/19/25 74-year-old lady with past medical history significant for coronary disease, hypertension, diabetes mellitus presented to the ER because of chest pain. Patient stated she was all right last night when while laying she started having chest pain that was central location, pressure-like, nonradiating, no ag gravating or relieving factor associated with this chest pain. Patient was complaining of shortness of breath at time. There was no complaint of orthopnea or PND. There was no episode of diaphoresis during this episode of chest pain. Patient took nitroglycerin that relieved her chest pain. This morning patient woke up and had another episode of chest pain but this time it was like a band going across her chest, that made her concerned and decided to come to the ER. Denies any nausea, vomiting abdominal pain. Patient denies any complaint of dizziness. There is no complaint of headache. Initial lab work done in the ER showed WBC 9.64, hemoglobin 13.8, platelet count 298, sodium 138, potassium 4, BUN 15, creatinine 0.6, glucose 181 troponin 0.012 albumin 4.5 EKG done in the ER showed heart rate of 93, T wave inversion seen in 1 and aVL, no ST segment elevation or depression seen, Chest x-ray done in the ER showed chronic emphysematous changes and cardiomegaly without acute pulmonary process Patient admitted to internal medicine service 03/19/2025 Patient seen and evaluated with family at bedside; no further report of chest pain Vital signs are reviewed and are stable Cardiology on board and patient has been placed on Farxiga 10 mg daily, Aldactone 25 mg daily, Ranexa 500 mg twice daily, Imdur 15 mg daily; patient to continue home dose of Lasix 20 mg daily, metoprolol 100 mg twice daily -Cardiology recommending to reduce amlodipine down to 5 mg daily; continue home dose of lisinopril at 40 mg daily - Patient is recommended Lexiscan stress test; patient was initially reluctant but now is agreeable; reports multiple drug allergies and very reluctant for any medication change at this time Objective - Vital Signs Vital signs: Vital Signs Temp 98.2 F 03/19/25 07:30 Pulse 80 03/19/25 07:30 Resp 17 03/19/25 07:30 BP 135/69 03/19/25 07:30 Pulse Ox 98 03/19/25 07:30 FiO2 Intake & Output 03/18/25 03/19/25 03/19/25 18:59 06:59 18:59 Other: Voiding Method Bedside Commode Bedside Commode Bedside Commode # Voids 2 1 - Exam GENERAL: The patient is alert and oriented x3, not in any acute distress. Well developed, well nourished. HEENT: Pupils are round and equally reacting to light. EOMI. No scleral icterus. No conjunctival pallor. Normocephalic, atraumatic. No pharyngeal erythema. No thyromegaly. CARDIOVASCULAR: S1 and S2 present. No murmurs, rubs, or gallops. PULMONARY: Chest is clear to auscultation, no wheezing or crackles. ABDOMEN: Soft, nontender, nondistended, normoactive bowel sounds. No palpable organomegaly. MUSCULOSKELETAL: No joint swelling or deformity. EXTREMITIES: No cyanosis, clubbing, or pedal edema. NEUROLOGICAL: Gross neurological examination did not reveal any focal deficits. SKIN: No rashes. - Labs CBC & Chem 7: 03/19/25 05:20 03/19/25 05:20 Labs: Abnormal Lab Results - Last 24 Hours (Table) 03/18/25 03/18/25 03/19/25 Range/Units 17:32 20:16 05:20 Hgb 11.7 L (12.0-15.0) g/dL MCV 78.5 L (80.0-97.0) FL MCH 24.6 L (27.0-32.0) pg MCHC 31.4 L (32.0-37.0) g/dL BUN/Creatinine Ratio (12.00-20.00) Ratio Glucose (70-110) mg/dL POC Glucose (mg/dL) 194 H 238 H (70-110) mg/dL Calcium (8.7-10.3) mg/dL 03/19/25 03/19/25 03/19/25 Range/Units 05:20 06:00 12:28 Hgb (12.0-15.0) g/dL MCV (80.0-97.0) FL MCH (27.0-32.0) pg MCHC (32.0-37.0) g/dL BUN/Creatinine Ratio 24.14 H (12.00-20.00) Ratio Glucose 225 H (70-110) mg/dL POC Glucose (mg/dL) 235 H 218 H (70-110) mg/dL Calcium 8.5 L (8.7-10.3) mg/dL Assessment and Plan Assessment: Chest pain, rule out acute coronary syndrome History of coronary artery disease status post CABG Hypertension Hyperlipidemia Monitor vital signs Monitor CBC Monitor CMP Continue telemetry monitoring Serial EKG Trend troponin Ordered lipid panel Ordered 2D echo Order D-dimer Resume home meds Consult cardiology Labs and medication were reviewed.. Continue same treatment. Continue with symptomatic treatment. Resume home medication. Monitor labs and vitals. DVT and GI prophylaxis. Further recommendations as per clinical course of the patient
[2025-03-19 20:29] LABS: Glucose,Whole Blood 248 mg/dL (70-110)
[2025-03-20] MEDS ORDERED: REGADENOSON 0.4 MG/5 ML SYRINGE IV PRN (06:00)
[2025-03-20 06:13] LABS: Glucose,Whole Blood 205 mg/dL (70-110)
--- NOTE | 2025-03-20 10:44 | P.PN ---
Subjective Progress Note Date: 03/20/25 HISTORY OF PRESENTING ILLNESS: 74-year-old female with past medical history of CAD status post CABG 5 vessel thereafter requiring 2 PCI and balloon angioplasty, also history of surgical aortic valve replacement for severe aortic stenosis. She also has type 2 diabetes obesity and hypertension. She presented to the hospital because of substernal chest tightness and pressure-like sensation that was nonradiating. Her symptoms did get better with sublingual nitroglycerin and Nitropatch. She was noted to be slightly hypertensive on admission. Her chest x-ray showed mild increased interstitial markings with no signs of significant consolidation or congestion. Hb 13, BUN 15, creatinine 0.6, A1c 7.6, TG 198, LDL 100 EKG showed atrial fibrillation which was rate controlled with nonspecific ST changes Echo showed EF of 55%, no RWMA, mild RV dilatation severe pulmonary hypertension RVSP 56 mmHg, mild biatrial dilatation, elevated LA filling pressures, mild mitral regurgitation mild mitral stenosis, calcific degeneration mitral valve, bioprosthetic aortic valve with mean gradient 13 mmHg, no significant regurgitation or PVL, moderate TR Progress note 03/19/2025 Patient seen and examined at bedside this a.m. BP 108/66, heart rate 86 no labs to review from today Denies any new cardiovascular symptoms at this time 03/20 Patient seen and examined. Patient is scheduled for Lexiscan stress test today. She currently follows with a hull inspector in [facility]. We will try to obtain reports from there. In the meantime we do have some reports from Dr. Garcia's office. 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 She denies chest pain or chest pressure at this time. Blood pressure 146/83-161/73, heart rate 79, pulse ox 99% on room air. Patient verbalizes that she does not want to have any of her medication changes and does not want to undergo anything like a cardiac catheterization or any additional surgeries. Prior history from cardiology office note 09/29/2024: Patient is off Repatha per her choice Uterine cancer on immunotherapy Atrophied right kidney Permanent atrial fibrillation History of TIA Echocardiogram performed 05/2019: EF 58%, normally functioning bioprosthetic aortic valve. Cardiac surgery history: 06/01/2015 cardiac catheterization 06/06/2015: 5 vessel coronary artery bypass graft and aortic valve replacement 12/23/2015: cardiac catheterization with everolimus eluding stent of the ostial first diagonal artery 03/18/2016: Everolimus eluding stent of the proximal circumflex, PTCA only of mid first diagonal artery 06/2018 cardiac catheterization 06/2019 cardiac catheterization 10/14/2016: PTCA first diagonal artery PHYSICAL EXAMINATION: Neck: Brisk carotid upstroke, no jugular venous distention. Lungs: Clear to auscultation. Heart: Regular rate and rhythm, mild systolic murmur audible in aortic area Abdomen: Soft nontender, positive bowel sounds. Extremities: No edema, intact distal pulses. Neuro: Alert, oriented, no focal deficits. Detailed neuro exam was not p erformed. ASSESSMENT: # Substernal chest pressure, rule out of ACS # CAD status post CABG x 5 vessel, status post 2 PCI and balloon angioplasty # Surgical bioprosthetic aortic valve replacement # Calcific degeneration of mitral valve with mild MR mild MS # Moderate pulmonary hypertension, likely mixed group 2 and group 3 # Statin intolerance Pertinent cardiac testing NT-proBNP 1700, A1c 7.6, LDL 100, TG 198 TSH 1.9 PLAN: Continue Farxiga 10, Aldactone 25, Ranexa 500 twice daily, Continue Lasix 20 Reduce amlodipine to 5, resume lisinopril 40 mg daily Continue the addition of Imdur 15 mg daily Continue Plavix Eliquis Lipitor 40, metoprolol 100 BID The prescription that was sent for Repatha by Dr. Che will be canceled as patient is clearly stated on her last office visit with her hull inspector that she would no longer be taking it. Lexiscan nuclear stress test today If stress test is unremarkable, patient is cleared for discharge and will follow-up with her primary hull inspector in 1 to 2 weeks. Nurse practitioner note has been reviewed, I agree with documented findings and plan of care. Patient was seen and examined. Objective - Vital Signs Vital signs: Vital Signs Temp 98.1 F 03/20/25 07:06 Pulse 79 03/20/25 07:06 Resp 18 03/20/25 07:06 BP 161/73 03/20/25 07:06 Pulse Ox 99 03/20/25 07:06 FiO2 Intake & Output 03/19/25 03/20/25 03/20/25 18:59 06:59 18:59 Intake Total 480 Balance 480 Intake: Oral 480 Other: Voiding Method Bedside Commode # Voids 3 2 - Labs CBC & Chem 7: 03/19/25 05:20 03/19/25 05:20 Labs: Abnormal Lab Results - Last 24 Hours (Table) 03/19/25 03/19/25 03/19/25 Range/Units 05:20 05:20 12:28 Hgb 11.7 L (12.0-15.0) g/dL MCV 78.5 L (80.0-97.0) FL MCH 24.6 L (27.0-32.0) pg MCHC 31.4 L (32.0-37.0) g/dL BUN/Creatinine Ratio 24.14 H (12.00-20.00) Ratio Glucose 225 H (70-110) mg/dL POC Glucose (mg/dL) 218 H (70-110) mg/dL Calcium 8.5 L (8.7-10.3) mg/dL 03/19/25 03/19/25 03/20/25 Range/Units 17:27 20:28 06:12 Hgb (12.0-15.0) g/dL MCV (80.0-97.0) FL MCH (27.0-32.0) pg MCHC (32.0-37.0) g/dL BUN/Creatinine Ratio (12.00-20.00) Ratio Glucose (70-110) mg/dL POC Glucose (mg/dL) 288 H 248 H 205 H (70-110) mg/dL Calcium (8.7-10.3) mg/dL
--- NOTE | 2025-03-20 12:25 | CA ---
Lexiscan Nuclear Stress Test Report Name: Kim Lynn Exam Date: 03/20/2025 11:38 Exam Location: [facility] Ht (in): 64 Wt (lb): 190 BSA: 1.91 Ordering Phys: Beni Che MD Referring Phys: KATARINA Technologist: GINETTE Age: 74 Gender: F : 1950 Procedure CPT: Indications: Reflex order-Stress test ICD-10 Codes: Patient History: Chest pain, Shortness of breath. hypertension, diabetes, history of ascad Medications: Meds past 24 hrs: Pretest Chest Pain: STRESS TEST Lexiscan Protocol Exercise Duration (min:sec): 01:[address] Depressions (mm): Angina Score: Harrison Score: Resting HR (bpm): 88 Peak HR (bpm): 102 Resting BP (mmHg): 164 / 97 Peak BP (mmHg): 162 / 87 MPHR: 144 Target HR: 122 % MPHR: 71 METS: 1.0 Total Dose: Peak Dose: Atropine: Double Product: 28916 BP Response: Stress Termination: INFUSION COMPLETE Stress Symptoms: FLUSHED Stress Summary: ECG ANALYSIS Resting ECG: Atrial fibirllation. Interventricular conduction delay. Nonspecific ST-T abnormality. Stress ECG: No ECG changes from baseline with Lexiscan infusion. CONCLUSIONS No ECG evidence of ischemia with Lexiscan infusion. Nuclear test results to follow. Dr. Moses Adair MD (Electronically Signed) Final Date: 20 March 2025 12:24
[2025-03-20 13:30] LABS: Glucose,Whole Blood 218 mg/dL (70-110)
--- NOTE | 2025-03-20 13:34 | NM ---
EXAMINATION TYPE: NM stress lexiscan cardiolite DATE OF EXAM: 03/20/2025 COMPARISON: NONE CLINICAL INDICATION: Female, 74 years old with history of Substernal chest pressure, TECHNIQUE: After the intravenous administration of 10.3 mCi Tc 99m Sestamibi - Cardiolite resting SP ECT images acquired 65 minutes post injection. At peak stress 26.6 mCi Tc 99m Sestamibi - Stress images obtained 45 minutes post injection The patient was stressed with 0.4mg Lexiscan. FINDINGS: No fixed defects are evident. No reversible stress defects on Spect images. There is some minimal dyskinesia of the distal anterior wall and wall motion. Some dyskinesia of the distal apex may be present. Ejection fraction is calculated to be 51 %. IMPRESSION: 1. No stress-induced ischemic change identified 2. Mild dyskinesia cardiac apex and distal anterior wall may be present [facility] [place], , 03/20/2025 1:32 PM
[2025-03-20 17:37] LABS: Glucose,Whole Blood 199 mg/dL (70-110)
[2025-03-20 20:17] LABS: Glucose,Whole Blood 255 mg/dL (70-110)
[2025-03-20 21:38] VITALS: RESP 16
[2025-03-21 06:16] LABS: Glucose,Whole Blood 210 mg/dL (70-110)
[2025-03-21 08:37] VITALS: BP 159/71; PULSE 81; TEMP 98.1
--- NOTE | 2025-03-21 15:31 | P.PN ---
Subjective Progress Note Date: 03/21/25 HISTORY OF PRESENTING ILLNESS: 74-year-old female with past medical history of CAD status post CABG 5 vessel thereafter requiring 2 PCI and balloon angioplasty, also history of surgical aortic valve replacement for severe aortic stenosis. She also has type 2 diabetes obesity and hypertension. She presented to the hospital because of substernal chest tightness and pressure-like sensation that was nonradiating. Her symptoms did get better with sublingual nitroglycerin and Nitropatch. She was noted to be slightly hypertensive on admission. Her chest x-ray showed mild increased interstitial markings with no signs of significant consolidation or congestion. Hb 13, BUN 15, creatinine 0.6, A1c 7.6, TG 198, LDL 100 EKG showed atrial fibrillation which was rate controlled with nonspecific ST changes Echo showed EF of 55%, no RWMA, mild RV dilatation severe pulmonary hypertension RVSP 56 mmHg, mild biatrial dilatation, elevated LA filling pressures, mild mitral regurgitation mild mitral stenosis, calcific degeneration mitral valve, bioprosthetic aortic valve with mean gradient 13 mmHg, no significant regurgitation or PVL, moderate TR Progress note 03/19/2025 Patient seen and examined at bedside this a.m. BP 108/66, heart rate 86 no labs to review from today Denies any new cardiovascular symptoms at this time 03/20 Patient seen and examined. Patient is scheduled for Lexiscan stress test today. She currently follows with a research group director in [facility]. We will try to obtain reports from there. In the meantime we do have some reports from Dr. Garcia's office. 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 She denies chest pain or chest pressure at this time. Blood pressure 146/83-161/73, heart rate 79, pulse ox 99% on room air. Patient verbalizes that she does not want to have any of her medication changes and does not want to undergo anything like a cardiac catheterization or any additional surgeries. Prior history from cardiology office note 09/29/2024: Patient is off Repatha per her choice Uterine cancer on immunotherapy Atrophied right kidney Permanent atrial fibrillation History of TIA Echocardiogram performed 05/2019: EF 58%, normally functioning bioprosthetic aortic valve. Cardiac surgery history: 06/01/2015 cardiac catheterization 06/06/2015: 5 vessel coronary artery bypass graft and aortic valve replacement 12/23/2015: cardiac catheterization with everolimus eluding stent of the ostial first diagonal artery 03/18/2016: Everolimus eluding stent of the proximal circumflex, PTCA only of mid first diagonal artery 06/2018 cardiac catheterization 06/2019 cardiac catheterization 10/14/2016: PTCA first diagonal artery 03/21 Patient seen and examined. Yesterday, patient underwent Lexiscan stress test that revealed no stress-induced ischemic change identified. Mild dyskinesia in the cardiac apex and distal anterior wall may be present. Patient denies chest pain or shortness of breath. She states she slept well last night. She would like to follow-up with cardiology in town which can be arranged by Dr. Wyatt. Blood pressure 159/71. PHYSICAL EXAMINATION: Neck: Brisk carotid upstroke, no jugular venous distention. Lungs: Clear to auscultation. Heart: Regular rate and rhythm, mild systolic murmur audible in aortic area Abdomen: Soft nontender, positive bowel sounds. Extremities: No edema, intact distal pulses. Neuro: Alert, oriented, no focal deficits. Detailed neuro exam was not performed. ASSESSMENT: # Substernal chest pressure, ruled out of ACS # CAD status post CABG x 5 vessel, status post 2 PCI and balloon angioplasty # Surgical bioprosthetic aortic valve replacement # Calcific degeneration of mitral valve with mild MR mild MS # Moderate pulmonary hypertension, likely mixed group 2 and group 3 # Statin intolerance Pertinent cardiac testing NT-proBNP 1700, A1c 7.6, LDL 100, TG 198 TSH 1.9 PLAN: Discontinue Farxiga 10, Aldactone 25, Ranexa 500 twice daily, Continue all patient's previous cardiac medications per patient request Patient is cleared for discharge and will follow-up with her primary research group director or [facility] in 1 to 2 weeks. Nurse practitioner note has been reviewed, I agree with documented findings and plan of care. Patient was seen and examined. Objective - Vital Signs Vital signs: Vital Signs Temp 98.1 F 03/21/25 07:25 Pulse 81 03/21/25 07:25 Resp 16 03/21/25 07:25 BP 159/71 03/21/25 07:25 Pulse Ox 99 03/21/25 07:25 FiO2 Intake & Output 03/20/25 03/21/25 03/21/25 18:59 06:59 18:59 Intake Total 240 240 Balance 240 240 Intake: Oral 240 240 Other: Voiding Method Bedside Commode Bedside Commode # Voids 1 2 - Labs CBC & Chem 7: 03/19/25 05:20 03/19/25 05:20 Labs: Abnormal Lab Results - Last 24 Hours (Table) 03/20/25 03/20/25 03/21/25 Range/Units 17:34 20:15 06:14 POC Glucose (mg/dL) 199 H 255 H 210 H (70-110) mg/dL
== END 2025-03-21 12:20 | disposition home or self-care (01) ==
LOC: EC 09:14 → 6NMEDSUR 11:35
PROVIDERS: ADMIT Internal Medicine; ATTEND Internal Medicine
DX: R07.89 Other chest pain (principal); I25.10 Atherosclerotic heart disease of native coronary artery without angina pectoris; I27.20 Pulmonary hypertension, unspecified; I35.0 Nonrheumatic aortic (valve) stenosis; I48.21 Permanent atrial fibrillation; I10 Essential (primary) hypertension; E78.5 Hyperlipidemia, unspecified; C55 Malignant neoplasm of uterus, part unspecified; E11.9 Type 2 diabetes mellitus without complications; E66.9 Obesity, unspecified; G62.9 Polyneuropathy, unspecified; Z79.01 Long term (current) use of anticoagulants; Z79.4 Long term (current) use of insulin; Z79.899 Other long term (current) drug therapy; Z79.02 Long term (current) use of antithrombotics/antiplatelets; Z88.8 Allergy status to other drugs, medicaments and biological substances; Z88.0 Allergy status to penicillin; Z86.73 Personal history of transient ischemic attack (TIA), and cerebral infarction without residual deficits; Z95.1 Presence of aortocoronary bypass graft; Z99.3 Dependence on wheelchair; Z95.2 Presence of prosthetic heart valve
CPT/HCPCS: 96374; 99285; 36415; 93005; 93017; 93306; 85379; 83880; 80061; 80053 ×2; 80048; 84443; 83735 ×2; 84484; 85025 ×3; 85610; 85730; 83036; 71046; 78452; G0378 ×5; A9500; J2270